=== PATIENT | female | born 1960 | race African-American/Black ===

== ENCOUNTER 2016-05-13 17:37 | Emergency (ER) ==
[2016-05-13 17:53] VITALS: BP 166/94
[2016-05-13] MEDS ORDERED: FLEXERIL PO ONE (18:31)
[2016-05-13] MEDS ORDERED: NORCO-5 PO ONE (18:31)
--- NOTE | 2016-05-13 18:35 | PROVIDER DOCUMENTATION ---
HPI-Musculoskeletal Pain/Inj - GENERAL Chief Complaint: Extremity Pain Stated Complaint: EXTREMITY PAIN Time Seen by Provider: 05/13/16 18:09 Source: patient - HX OF PRESENT ILLNESS-MUSKULOSKELTAL Nature of Presenting Problem: 55 y/o AAf c/o right sciatic never pain. This is a chornic problem she has been worked up for in the past.. Reports right lower back pain that radiates down the leg, worse with movement. Denies new injuries. Pain is aching, sometimes throbbing, worse with movement. Review of Systems - Adult - REVIEW OF SYSTEMS - ADULT Constitutional: reports: no symptoms reported. denies: chills, fever, fatique Eyes: reports: no symptoms reported. denies: blurred vision, double vision, eye pain Ears, Nose, Mouth & Throat: reports: no symptoms reported. denies: ear pain, nose pain, throat pain Cardiovascular: reports: no symptoms reported. denies: chest pain, palpitations Respiratory: reports: no symptoms reported. denies: cough, shortness of breath Gastrointestinal: reports: no symptoms reported Genitourinary: reports: no symptoms reported Musculoskeletal: reports: see HPI, back pain, muscle aches. denies: bone pain, joint pain, neck pain Integumentary: reports: no symptoms reported. denies: rash Neurological: reports: no symptoms reported. denies: headache/migraines Psychiatric: reports: no symptoms reported Endocrine: reports: no symptoms reported Hematologic/Lymphatic: reports: no symptoms reported Allergic/Immunologic: reports: no symptoms reported All Other Systems: Reviewed and Negative Past History - Adult - PAST MEDICAL HISTORY-ADULT Review of Records: reports: Old Records Reviewed, Nursing Assessment Review, Medications Reviewed, Social history reviewed & non-contributory. Major Childhood Illnesses: reports: denies history Cardiovascular: reports: HTN, hyperlipidemia Respiratory: reports: asthma Gastrointestinal: reports: denies history Obstetrical/Gynecological: reports: denies history Genitourinary: reports: denies history Musculoskeletal: reports: chronic pain Neurological: reports: denies history Psychiatric: reports: anxiety, depression Endocrine/Immune: reports: Diabetes Other Conditions: reports: denies history - PRIOR SURGERIES/PROCEDURES Surgical/Procedure History: reports: other (hemrrhoidectomy) - IMMUNIZATION STATUS Childhood Immunizations: See Nurse Assessment Flu Vaccine: See Nurse Assessment - FAMILY HISTORY Family History: reviewed, not pertinent - SOCIAL HISTORY Smoking: denies Substance Use: none/never Alcohol Use Frequency: never Physical Exam-Injury Related - Physical Exam-Injury Related Initial Vital Signs Reviewed: Yes General Appearance: appears well, alert, no apparent distress Eyes: PERRL/EOMI, pink conjunctivae Head, Ears, Nose, Mouth & Throat: normocephalic/atraumatic, moist mucous membranes Neck: non-tender, full range of motion, supple, normal inspection Respiratory: chest non-tender, lungs clear, normal breath sounds, no pleuratic chest pain, no respiratory distress, no accessory muscle use Cardiovascular: normal peripheral pulses, regular rate, rhythm Peripheral Pulses: dorsalis-pedis (R): 2+, dorsalis-pedis (L): 2+ Back Exam: normal inspection. negative: vertebral tenderness Extremity: normal range of motion, non-tender, normal gait, normal inspection Integumentary: normal color, warm/dry, blanching Neurologic: grossly normal, no motor/sensory deficits Psych/Mental Status: normal mood/affect, normal thought content, normal thought process, oriented x 3 - Glascow Coma Score Best Eye Response (Lucoi): (4) open spontaneously Best Verbal Response (Lucio): (5) oriented Best Motor Response (Brightwood): (6) obeys commands Progress - PLAN OF CARE/RESULTS Progress/Plan/Lab Results: Orders Category Date Time Status Cyclobenzaprine [Flexeril] Med 05/13/16 18:31 Discontinued 10 mg PO NOW ONE Hydrocodone/APAP 5 mg/325 mg [Meacham-5] Med 05/13/16 18:31 Discontinued 1 each PO NOW ONE Vital Signs Temp Pulse Resp BP Pulse Ox 05/13/16 17:47 98 F 104 H 18 166/94 98 ibuprofen [From Advil] Allergy (Intermediate, Verified 04/24/16 19:57) SHORTNESS OF BREATH naproxen sodium * [From Aleve] Allergy (Intermediate, Verified 04/24/16 19:57) SHORTNESS OF BREATH morphine Allergy (Mild, Verified 04/24/16 19:57) "THE ULTIMATE DOOM" PRAVAstatin [Pravachol] 10 mg PO QHS 05/03/13 Ipratropium/Albuterol Sulfate [Iprat-Albut 0.5-3(2.5) mg/3 ml] 3 ml IH Q4H PRN PRN 02/11/14 Metformin HCl 1,000 mg PO BID 03/28/14 Montelukast Sodium [Singulair] 10 mg PO DAILY 03/28/14 Omeprazole [Prilosec] 40 mg PO DAILY 03/28/14 Triamterene/Hctz [Maxzide-25] 1 tab PO DAILY 12/22/14 Diltiazem HCl [Diltiazem ER] 360 mg PO DAILY 01/19/15 Fluticasone/Salmeterol [Advair 500-50 Diskus] 1 inh INH BID 03/09/15 Theophylline Anhydrous [Theophylline] 400 mg PO DAILY 04/03/15 Cetirizine HCl [Zyrtec] 1 tab PO DAILY 02/06/16 Fluticasone Propionate [Flonase Allergy Relief] 1 spray INH BID 02/06/16 Glimepiride [Amaryl] 4 mg PO DAILY 02/06/16 Insulin Aspart [Novolog Flexpen] 02/06/16 Lorazepam [Ativan] 1 mg PO BID #0 tablet 02/10/16 Tiotropium [place] [Spiriva Respimat] 1 inh INH DAILY #0 02/10/16 Multivit-Minerals/Folic/Ginkgo [One Daily For Women 50+ Adv Tb] 1 tab PO DAILY 04/24/16 Albuterol Sulfate [Ventolin Hfa] 90 mcg IH Q4H PRN PRN #0 04/29/16 Budesonide [Pulmicort] 0.5 mg INH RTBID #0 neb 04/29/16 Hydrocodone/Acetaminophen [Meacham 10-325 Tablet] 1 tab PO TID PRN PRN #0 Losartan [Cozaar] 100 mg PO DAILY #30 tablet 04/29/16 Methylprednisolone [Medrol Dosepak] 4 mg PO DIRECTED #1 package 04/29/16 Acetaminophen with Codeine [Tylenol with Codeine #3] 1 each PO Q4H PRN PRN #14 tablet 05/13/16 Dr. Jacinto to bedside. Agrees with treatment, disposition and plan. Departure - Departure Time of Disposition Order: 18:32 DIAGNOSIS: Right sciatic nerve pain Disposition: HOME 01 Certified Medical Emergency: Emergent Condition: Stable Additional Instructions: Follow up with Dr. Hadley, orthopedic ED Follow Up Instructions: You have been treated by a care provider in the Emergency Department. These instructions are being provided to you so you can have an understanding of how to care for yourself upon discharge. Upon discharge from the Emergency Department, you are responsible for making arrangements for follow-up care by a physician of your choice. Take all prescribed medications as directed. Return to the Emergency Department immediately for any new or worsening symptoms. You may call the Physician Referral phone number at [phone] to obtain a list of Physicians who are taking new patients. Prescriptions: Acetaminophen with Codeine [Tylenol with Codeine #3] 1 each PO Q4H PRN PRN #14 tablet PRN Reason: Pain Attestation - Physician/ ELDA Attestation Patient care was provided by Advanced Practice Provider:: Yes Advanced Practice Provider:: Evonne Montejo Advanced Practice Provider documentation review:: The Mid-level provider documentation, treatment plan and medical decision making was reviewed by the physician who agrees with all treatment and medical decision making by the MLP. The physician spent face to face time with patient:: Yes
== END 2016-05-13 19:05 | disposition home or self-care (01) ==
LOC: P.ED 17:37
DX: M54.31 Sciatica, right side (principal); M54.5 Low back pain; M79.604 Pain in right leg; M79.1 Myalgia; G89.29 Other chronic pain; I10 Essential (primary) hypertension; E78.5 Hyperlipidemia, unspecified; E11.9 Type 2 diabetes mellitus without complications
CPT/HCPCS: 99282

== ENCOUNTER 2016-08-20 06:40 | Inpatient (IN) ==
--- NOTE | 2016-08-20 06:50 | EKG Report ---
Test Performed on : 08/20/2016 06:45:42 AM Test Reason : SOB Blood Pressure : / mmHG Vent. Rate : 153 BPM Atrial Rate : 153 BPM P-R Int : 130 ms QRS Dur : 066 ms QT Int : 316 ms P-R-T Axes : 078 086 056 degrees QTc Int : 504 ms Sinus tachycardia. Otherwise normal ECG When compared with ECG of 24-APR-2016 18:47, Non-specific change in ST segment in Inferior leads Unconfirmed Result
[2016-08-20 06:51] LABS: BE -1.3 mmoll (-3.0-3.0); BLOOD TYPE ARTERIAL; DRAW SITE R RADIAL; METHB 1.3 % (0.0-1.5); O2(CT) 22.2 mL/dL (15.0-23.0); PCO2(98.6) 40 mmHg (35-45); PO2(98.6) 78 mmHg (60-100); SAMPLE BLOOD; SAO2 96.5 % (95.0-100.0); THB 16.9 g/dL (11.5-17.4); pH(98.6) 7.38 (7.35-7.45)
[2016-08-20 06:52] LABS: MANUAL DIFF NEEDED? NO
[2016-08-20 06:54] LABS: ALLEN TEST YES; MODALITY CANNULA
[2016-08-20 07:05] LABS: EOS# 0.23 X1000 (0.0-0.7); EOS% 3.2 % (0.0-10.0); HEMOGLOBIN 16.7 g/dL (12.0-16.0); IMM GRAN# 0.05 X1000 (0.0-0.04); IMM GRAN% 0.7 % (0.0-0.5); LYMPH# 2.59 X1000 (1.2-3.4); LYMPH% 36.3 % (20.5-51.1); MCH 31.2 PG (27-31); MCHC 34.8 g/dL (33-37); MCV 89.6 FL (81-99); MONO# 0.68 X1000 (0.11-0.59); MONO% 9.5 % (1.7-9.3); MPV 9.8 FL (7.4-10.4); NEUT% 49.3 % (42.2-75.2); PLT 350 X1000 (130-400); RBC 5.36 XMIL (4.2-5.4)
[2016-08-20 07:17] LABS: AGAP 23; ALBUMIN 4.8 g/dL (3.5-5.0); ALKALINE PHOSPHATASE 74 U/L (32-104); BUN 5 mg/dL (8-22); CALCIUM 9.9 mg/dL (8.8-10.2); CHLORIDE 90 mmol/L (98-107); CK PROFILE 203 U/L (24-173); COSMO 273; GOT 23 U/L (10-30); GPT 22 U/L (10-36); MAGNESIUM 1.5 mg/dL (1.5-2.7); POTASSIUM 3.7 mmol/L (3.5-5.1); SODIUM 133 mmol/L (136-145); TCO2 20 mmol/L (25-35); TOTAL PROTEIN 7.8 g/dL (6.3-8.3)
[2016-08-20 08:00] LABS: CK INDEX 1.2 (0.0-2.5); CK-MB 2.42 ng/mL (0.0-5.0)
[2016-08-20] MEDS ORDERED: SOLU-MEDROL IV ONE (09:35)
[2016-08-20] MEDS ORDERED: MAGNESIUM SULFATE 2 GM/S.W.I. 2 GM/50 ML IVPB IV ONE (09:43)
[2016-08-20] MEDS ORDERED: NS 1,000 ML IV ONE ×2 (09:43→13:19)
--- NOTE | 2016-08-20 10:04 | PROVIDER DOCUMENTATION ---
This chart was entered by Chasity Ho Scribe, acting as scribe for Jorje Baeza MD. HPI-Respiratory General - General Chief Complaint: Shortness of Breath Stated Complaint: DYSPNEA, SVT EN ROUTE Time Seen by Provider: 08/20/16 06:50 Source: patient, family Allergies/Adverse Reactions: Patient Allergies Allergy/AdvReac Type Severity Reaction Status Date / Time ibuprofen [From Advil] Allergy Intermediate SHORTNESS Verified 08/20/16 06:49 OF BREATH naproxen sodium * Allergy Intermediate SHORTNESS Verified 08/20/16 06:49 [From Aleve] OF BREATH morphine Allergy Mild "THE Verified 08/20/16 06:49 ULTIMATE DOOM" Home Medications: Home Medication List Medication Instructions Recorded Confirmed Last Taken Type Albuterol Sulfate [Albuterol 08/20/16 08/20/16 History Sulfate] Amlodipine Besylate [Amlodipine 08/20/16 1 Day Ago History Besylate] Hydrocodone/Acetaminophen 08/20/16 1 Day Ago History [Hydrocodon-Acetaminophn 10-325] Ipratropium [place] 08/20/16 08/20/16 History Losartan Potassium [Losartan 08/20/16 1 Day Ago History Potassium] Montelukast Sodium [Montelukast 08/20/16 1 Day Ago History Sodium] Omeprazole [Omeprazole] 08/20/16 1 Day Ago History Pregabalin [Lyrica] 08/20/16 08/20/16 History Theophylline Anhydrous 08/20/16 1 Day Ago History [Theophylline] Triamterene/Hydrochlorothiazid 08/20/16 1 Day Ago History [Triamterene-Hctz 37.5-25 mg Cp] - History of Present Illness-Resp Nature of Presenting Problem: 55 yo F presents to the ER with complaint of worsening SOB x2 days and R leg pain x6 months. Pt has hx of asthma, states she is not taking any steroids. R leg pain starts in low back and radiates down R leg, states she has been diagnosed with sciatica and has had an MRI and 2 injections. Onset/Duration: reports: 3 days ago Timing: reports: still present Exposure: reports: unknown cause Cough Quality/Degree: reports: moderate Current Respiratory Medication Therapy: Initiated albuterol/atrovent inhale, Initiated A/A nebulizer Associated Symptoms: reports: cough, shortness of breath, short of breath. denies: fever/chills, flu-like symptoms Review of Systems - Adult - REVIEW OF SYSTEMS - ADULT Constitutional: denies: chills, fever Eyes: reports: no symptoms reported Ears, Nose, Mouth & Throat: reports: no symptoms reported Cardiovascular: denies: chest pain, palpitations Respiratory: reports: cough, shortness of breath, wheezing Gastrointestinal: denies: diarrhea, nausea, vomiting Genitourinary: reports: no symptoms reported Musculoskeletal: reports: no symptoms reported Integumentary: reports: no symptoms reported Neurological: reports: no symptoms reported Psychiatric: reports: no symptoms reported Endocrine: reports: no symptoms reported Hematologic/Lymphatic: reports: no symptoms reported Allergic/Immunologic: reports: no symptoms reported All Other Systems: Reviewed and Negative Past History - Adult - PAST MEDICAL HISTORY-ADULT Review of Records: reports: Nursing Assessment Review, Medications Reviewed Cardiovascular: reports: HTN, hyperlipidemia Respiratory: reports: asthma Musculoskeletal: reports: arthritis, chronic pain Psychiatric: reports: anxiety, depression Endocrine/Immune: reports: Diabetes - PRIOR SURGERIES/PROCEDURES Surgical/Procedure History: reports: other (hemrrhoidectomy) - IMMUNIZATION STATUS Childhood Immunizations: See Nurse Assessment Flu Vaccine: See Nurse Assessment Physical Exam-General - PHYSICAL EXAM-ADULT Initial Vital Signs Reviewed: Yes - CONSTITUTIONAL General Appearance: alert, no apparent distress - EYES Eyes: PERRL/EOMI, pink conjunctivae - HEAD, EARS, NOSE, MOUTH & THROAT HENMT: normocephalic/atraumatic, normal ENT inspection - NECK Neck: supple, normal inspection - RESPIRATORY Respiratory: no respiratory distress, no accessory muscle use, wheezing - CARDIOVASCULAR Cardiovascular: normal peripheral pulses, regular rate, rhythm - MUSCULOSKELETAL Back Exam: no CVA tenderness, no vertebral tenderness Extremity: normal gait, normal inspection - SKIN Integumentary: normal color, warm/dry - NEUROLOGIC Neurologic: grossly normal, no motor/sensory deficits - PSYCHIATRIC Psych/Mental Status: normal mood/affect, normal thought content, normal thought process, oriented x 3 Progress - PLAN OF CARE/RESULTS Progress/Plan/Lab Results: Vital Signs - 8 hr 08/20/16 06:40 08/20/16 06:58 08/20/16 07:34 Temperature 99.5 F Pulse Rate 147 H 134 H 137 H Respiratory Rate 22 12 18 Blood Pressure 155/116 130/104 143/109 O2 Sat by Pulse Oximetry 96 96 97 08/20/16 09:24 Temperature Pulse Rate 132 H Respiratory Rate 26 H Blood Pressure O2 Sat by Pulse Oximetry 96 Laboratory Results - last 24 hr 08/20/16 08/20/16 08/20/16 06:30 06:47 06:47 WBC RBC Hgb Hct MCV MCH MCHC RDW Std Deviation Plt Count MPV Immature Gran % (Auto) Neut % (Auto) Lymph % (Auto) Branch % (Auto) Eos % (Auto) Baso % (Auto) Immature Gran # (Auto) Neut # (Auto) Lymph # (Auto) Branch # (Auto) Eos # (Auto) Baso # (Auto) D-Dimer Specimen Type ARTERIAL Sample Site R RADIAL pH 7.38 pCO2 40 pO2 78 HCO3 23.8 Base Excess -1.3 Oxyhemoglobin 93.4 L ABG O2 Sat (Calculated) 22.2 ABG O2 Saturation 96.5 ABG Carboxyhemoglobin 2.00 ABG Methemoglobin 1.3 Preet Test YES A-a O2 Difference 72.0 Total Hemoglobin 16.9 Lactate 5.80 H* Liter Flow 2.0 Blood Gas Modality CANNULA FiO2 % 28.0 Sodium 133 L Potassium 3.7 Chloride 90 L Carbon Dioxide 20 L Anion Gap 23 BUN 5 L Creatinine 0.8 Estimated GFR/1.73 m2 > 60 BUN/Creatinine Ratio 6 Glucose 266 H Calculated Osmolality 273 Calcium 9.9 Magnesium 1.5 Total Bilirubin 0.30 AST 23 ALT 22 Alkaline Phosphatase 74 Creatine Kinase 203 H Creatine Kinase Index 1.2 CK-MB (CK-2) 2.42 Troponin T < 0.010 Qiq-K-Rjmldwunihx Pept Total Protein 7.8 Albumin 4.8 Globulin 3.0 Albumin/Globulin Ratio 2.0 Plasma Lactate 08/20/16 08/20/16 08/20/16 06:47 06:47 06:47 WBC 7.13 RBC 5.36 Hgb 16.7 H Hct 48.0 H MCV 89.6 MCH 31.2 H MCHC 34.8 RDW Std Deviation 13.0 Plt Count 350 MPV 9.8 Immature Gran % (Auto) 0.7 H Neut % (Auto) 49.3 Lymph % (Auto) 36.3 Branch % (Auto) 9.5 H Eos % (Auto) 3.2 Baso % (Auto) 1.0 H Immature Gran # (Auto) 0.05 H Neut # (Auto) 3.51 Lymph # (Auto) 2.59 Branch # (Auto) 0.68 H Eos # (Auto) 0.23 Baso # (Auto) 0.07 D-Dimer 0.26 Specimen Type Sample Site pH pCO2 pO2 HCO3 Base Excess Oxyhemoglobin ABG O2 Sat (Calculated) ABG O2 Saturation ABG Carboxyhemoglobin ABG Methemoglobin Preet Test A-a O2 Difference Total Hemoglobin Lactate Liter Flow Blood Gas Modality FiO2 % Sodium Potassium Chloride Carbon Dioxide Anion Gap BUN Creatinine Estimated GFR/1.73 m2 BUN/Creatinine Ratio Glucose Calculated Osmolality Calcium Magnesium Total Bilirubin AST ALT Alkaline Phosphatase Creatine Kinase Creatine Kinase Index CK-MB (CK-2) Troponin T Yme-N-Icavrugvlqf Pept 6 Total Protein Albumin Globulin Albumin/Globulin Ratio Plasma Lactate 08/20/16 08:10 WBC RBC Hgb Hct MCV MCH MCHC RDW Std Deviation Plt Count MPV Immature Gran % (Auto) Neut % (Auto) Lymph % (Auto) Branch % (Auto) Eos % (Auto) Baso % (Auto) Immature Gran # (Auto) Neut # (Auto) Lymph # (Auto) Branch # (Auto) Eos # (Auto) Baso # (Auto) D-Dimer Specimen Type Sample Site pH pCO2 pO2 HCO3 Base Excess Oxyhemoglobin ABG O2 Sat (Calculated) ABG O2 Saturation ABG Carboxyhemoglobin ABG Methemoglobin Preet Test A-a O2 Difference Total Hemoglobin Lactate Liter Flow Blood Gas Modality FiO2 % Sodium Potassium Chloride Carbon Dioxide Anion Gap BUN Creatinine Estimated GFR/1.73 m2 BUN/Creatinine Ratio Glucose Calculated Osmolality Calcium Magnesium Total Bilirubin AST ALT Alkaline Phosphatase Creatine Kinase Creatine Kinase Index CK-MB (CK-2) Troponin T Owj-S-Bkhioywngbj Pept Total Protein Albumin Globulin Albumin/Globulin Ratio Plasma Lactate 4.3 H Orders Category Date Time Status Admit - [facility] Routine AdmDCTranf 08/20/16 09:43 Ordered Activity - Bed Rest with BRP ORDERED Care 08/20/16 09:43 Active Cardiac Monitoring DIRECTED Care 08/20/16 06:41 Active Oxygen Therapy- ED Nursing DIRECTED Care 08/20/16 06:41 Active Telemetry Placement ORDERED Care 08/20/16 09:44 Active Vital Signs Order Q4HR Care 08/20/16 09:43 Active Diabetic Diet Diet 08/20/16 09:44 Active CHEST-PORTABLE [RAD] Stat Exams 08/20/16 06:41 Taken ABG [RESP] Routine Lab 08/20/16 06:30 Completed CBC WITH DIFF [HEME] Stat Lab 08/20/16 06:47 Completed CK PROFILE [SP CHEM] Stat Lab 08/20/16 06:47 Completed COMPREHENSIVE METABOLIC PANEL [CHEM] Stat Lab 08/20/16 06:[address] D-DIMER PL [COAG] Stat Lab 08/20/16 06:47 Completed LACTATE, PLASMA [CHEM] Stat Lab 08/20/16 08:10 Completed MAGNESIUM [CHEM] Stat Lab 08/20/16 06:47 Completed PRO B-NATRIURETIC PEPTIDE Stat Lab 08/20/16 06:47 Completed TROPONIN T Stat Lab 08/20/16 06:47 Completed 0.9% Sodium Chloride Inj [Ns] 1,000 ml Med 08/20/16 09:43 Active IV 150 mls/hr Albuterol 2.5MG/Ipratrop 0.5MG [Duoneb (A & A)] Med 08/20/16 11:30 Active 3 ml INH RTQ4H Magnesium Sulfate 2 gm/S.w.i. [Magnesium Sulfate 2 gm/S Med 08/20/16 09:43 Active .w.i] 2 gm in 50 ml IV NOW Methylprednisolone Sod Succ [Solu-Medrol] Med 08/20/16 09:35 Discontinued 125 mg IV NOW ONE Methylprednisolone Sod Succ [Solu-Medrol] Med 08/20/16 15:00 Active 125 mg IV Q6H Aerosol Treatments Routine Oth 08/20/16 09:46 Active Aerosol Treatments Stat Oth 08/20/16 09:46 Active Oxygen Device Routine Oth 08/20/16 09:44 Active Pulse Oximetry Stat Oth 08/20/16 06:41 Active Telemetry [OM.EQ] Routine Oth 08/20/16 09:43 Active EKG [EKG] Stat Ther 08/20/16 06:41 Draft Result Diagrams: 08/20/16 06:47 08/20/16 06:47 - EKG 1 Time of EKG reading by physician:: 06:45 EKG Read and Signed by:: Jorje Baeza EKG Interpretation (*Must complete 3 of following elements*): Abnormal Rate: 153 Rhythm: sinus tach Hazen: normal QRS: normal VT Interval: normal ST Wave: normal - XRAY 1 XRAY Study: Chest Impression: Normal (negative, no changes, per Dr. Baeza) - CONSULTS/PCP/HOSPITALIST Notification #1 *Consult/PCP/Hospitalist*: Dr. Douglas Time Discussed: 09:40 Consult Disposition: Admit Departure - Departure Date of Disposition Decision: 08/20/16 Time of Disposition Decision: 10:03 DIAGNOSIS: Asthma attack Back pain Qualifiers: Back pain location: low back pain Chronicity: unspecified Back pain laterality : bilateral Sciatica presence: with sciatica Sciatica laterality: sciatica of right side Qualified Code(s): M54.41 - Lumbago with sciatica, right side Disposition: ADMITTED INPATIENT 09 Certified Medical Emergency: Emergent Condition: Stable Referrals and Follow-Ups: Araseli Cordoba MD [Primary Care Provider] - - Critical Care Note This patient required my direct & personal management of CC.: No This chart was documented by the indicated scribe, (Chasity Ho, Aldo) and accurately reflects the services I performed and decisions made by me, Jorje Baeza MD, as attested by the provider's signature.
[2016-08-20] MEDS ORDERED: DUONEB (A & A) INH ONE (10:23)
[2016-08-20] MEDS: DUONEB (A & A) INH SCH ×4 (10:33→22:56)
[2016-08-20] MEDS ORDERED: TORADOL IV ONE (11:01)
[2016-08-20] MEDS ORDERED: TORADOL IV PRN (11:01)
[2016-08-20] MEDS: DILAUDID IV PRN ×4 (11:16→20:56)
--- NOTE | 2016-08-20 11:19 | Diag Imaging Result Doc PS360 ---
EXAM: CHEST-PORTABLE INDICATION: DYSPNEA TECHNIQUE: One view COMPARISON: 04/24/2016 FINDINGS: The lungs are grossly clear. There is no discrete pleural fluid collection or pneumothorax. The cardiomediastinal silhouette and central vasculature are grossly unremarkable. IMPRESSION: No evidence of acute pathology by plain radiograph. Electronically signed by Shahid Rivera 08/20/2016 11:16 AM
[2016-08-20] MEDS ORDERED: OFIRMEV 1000 MG/ISOTONIC SOLN 1,000 MG/100 ML BOTTLE IV PRN (12:55)
[2016-08-20] MEDS ORDERED: NORCO-10 PO PRN (12:57)
[2016-08-20] MEDS ORDERED: DUONEB (A & A) INH PRN (13:00)
[2016-08-20] MEDS ORDERED: OFIRMEV 1000 MG/ISOTONIC SOLN 1,000 MG/100 ML BOTTLE IV ONE (13:50)
[2016-08-20] MEDS ORDERED: ALBUTEROL NEB INH ONE (13:51)
[2016-08-20] MEDS: LYRICA PO SCH ×2 (14:01→21:19)
[2016-08-20] MEDS: ZITHROMAX 500 MG/NS 500 MG/250 ML IVPB IV SCH (14:02)
[2016-08-20] MEDS: LIDODERM TOP SCH (14:06)
[2016-08-20] MEDS: NORVASC PO SCH (14:07)
[2016-08-20] MEDS: SINGULAIR PO SCH (14:07)
[2016-08-20] MEDS: NORCO-10 PO SCH ×2 (14:07→21:19)
[2016-08-20] MEDS: COZAAR PO SCH (14:07)
--- NOTE | 2016-08-20 14:19 | HISTORY AND PHYSICAL ---
PRIMARY CARE PHYSICIAN: Dr. Araseli Cordoba. CHIEF COMPLAINT: Shortness of breath. HISTORY OF PRESENT ILLNESS: This is a 55-year-old female with a history of asthma who presented to the emergency room complaining of increasing shortness of breath over the last 48 hours. She states that she has a history of sciatica with right leg pain and that this has increased in severity over the last few weeks, especially the last 4-5 days. She feels that the pain makes her anxious and therefore stimulates asthma exacerbations. She had been taking her albuterol nebulizations hourly at home and when symptoms did not subside, she presented to the emergency room. She did have an O2 saturation of 96% on 2L nasal cannula on arrival, and she reportedly had SVT in the ambulance on arrival. We are not sure of the rate. The patient states that it subsided spontaneously. Her chest x-ray revealed no evidence of acute pathology. Lungs are grossly clear, per Radiology read. She was given DuoNeb with magnesium supplementation and 125 of Solu-Medrol, and admitted for further evaluation treatment. PAST MEDICAL HISTORY: Asthma, diabetes mellitus, hypertension, hyperlipidemia, anxiety, sciatica with right lower extremity pain. PAST SURGICAL HISTORY: Hemorrhoidectomy. SOCIAL HISTORY: She quit smoking in 2007. She denies alcohol or illicit drug use. She does live alone, but has family close by who are active in her care. ALLERGIES: Morphine and any non-steroidal anti-inflammatory drug, which cause asthma attack. LABORATORIES: WBC is 7.13 with hemoglobin 16.7, hematocrit 48, and platelets of 350,000. D-dimer is 0.26. Sodium is 133, potassium 3.7, BUN 5, creatinine 0.8, with a glucose of 266. Her plasma lactate is 4.3. IMAGING: Chest x-ray is clear. REVIEW OF SYSTEMS: A 14-point review of systems is discussed with the patient, with pertinent positives stated in HPI. She denied chest pain, palpitations, PND, orthopnea, fever, chills, productive cough, night sweats, nausea, vomiting, diarrhea, constipation, black or bloody vomitus, black or bloody stools, hematuria, dysuria, frequency, or urgency. PHYSICAL EXAMINATION: GENERAL: This is a 55-year-old obese female, who is lying in the bed in no distress at present. VITAL SIGNS: Blood pressure is 128/81 with a heart rate of 116. Respirations are 18. Temperature is 98.2 degrees with O2 saturations 98% on 2L nasal cannula. CARDIOVASCULAR: She is tachycardic with a regular rate and rhythm. S1 and S2 appreciated. PULMONARY: She is wheezing throughout, with no increased work of breathing noted. GASTROINTESTINAL: Abdomen is soft, nontender, nondistended. Bowel sounds in all 4 quadrants. BACK: No CVAT. No spine tenderness. GENITOURINARY: Deferred. EXTREMITIES: No clubbing, cyanosis, or edema. Calves are nontender and pulses are palpable x4. NEUROLOGIC: She is alert and oriented x3, with cranial nerves 2-12 grossly intact. ASSESSMENT AND PLAN: 1. Acute asthma exacerbation. 2. History of chronic obstructive pulmonary disease. 3. Supraventricular tachycardia. 4. Sciatica with right lower extremity pain. She is status post 2 injections. 5. Diabetes mellitus. 6. Hypertension. 7. Deep vein thrombosis prophylaxis. 8. Gastrointestinal prophylaxis. She will be admitted to the hospital. She will receive supplemental oxygen. We will place her on telemetry. We will give DuoNeb q.4 hours and q.2 hours p.r.n., and steroids q.6 hours, which will also hopefully help her sciatica. We will identify her home medications and continue as appropriate. Pattern blood glucose with sliding scale insulin. As her lactate was elevated as well as tachycardic with elevated respirations, we will go ahead and get blood cultures and give IV hydration per sepsis protocol. For antibiotic coverage, we will use azithromycin. For DVT prophylaxis, we will use Lovenox. For GI prophylaxis, we will use Prilosec. Further treatment pending hospital course. Dictated by MERI Ma for Chay Douglas MD cc: MERI Ma MD pt examined, agree with above APENOT MTDD
[2016-08-20] MEDS: SOLU-MEDROL IV SCH ×2 (17:20→21:19)
[2016-08-20] MEDS: HUMALOG DOSE (PARKWAY) SUBQ SCH ×2 (17:23→21:19)
[2016-08-21] MEDS: DILAUDID IV PRN ×6 (00:22→18:45)
[2016-08-21] MEDS: DUONEB (A & A) INH SCH ×6 (04:11→23:00)
[2016-08-21] MEDS: SOLU-MEDROL IV SCH ×4 (04:46→20:07)
[2016-08-21] MEDS: NORCO-10 PO SCH ×3 (04:46→21:18)
[2016-08-21] MEDS: LYRICA PO SCH ×3 (04:46→20:07)
[2016-08-21 05:52] LABS: HEMATOCRIT 42.4 % (37.0-47.0); HEMOGLOBIN 14.3 g/dL (12.0-16.0); MCH 30.6 PG (27-31); MCHC 33.7 g/dL (33-37); MCV 90.6 FL (81-99); MPV 9.8 FL (7.4-10.4); RBC 4.68 XMIL (4.2-5.4)
[2016-08-21 05:58] LABS: HEMOGLOBIN A1C 8.9 % (4.8-6.0)
[2016-08-21 06:22] LABS: AGAP 16; ALBUMIN 4.5 g/dL (3.5-5.0); ALKALINE PHOSPHATASE 65 U/L (32-104); BUN 10 mg/dL (8-22); CALCIUM 9.2 mg/dL (8.8-10.2); CHLORIDE 91 mmol/L (98-107); COSMO 274; GOT 16 U/L (10-30); GPT 19 U/L (10-36); MAGNESIUM 2.1 mg/dL (1.5-2.7); POTASSIUM 3.8 mmol/L (3.5-5.1); SODIUM 130 mmol/L (136-145); TCO2 23 mmol/L (25-35); TOTAL PROTEIN 7.3 g/dL (6.3-8.3)
[2016-08-21] MEDS: HUMALOG DOSE (PARKWAY) SUBQ SCH ×4 (06:40→20:08)
[2016-08-21] MEDS: PRILOSEC PO SCH (06:41)
[2016-08-21] MEDS: COZAAR PO SCH (08:46)
[2016-08-21] MEDS: NORVASC PO SCH (08:46)
[2016-08-21] MEDS: SINGULAIR PO SCH (08:46)
[2016-08-21] MEDS: LIDODERM TOP SCH (08:47)
[2016-08-21] MEDS: [UNRECOGNIZED DRUG - OTHER] PO SCH (08:47)
[2016-08-21] MEDS: LOVENOX SUBQ SCH (08:47)
--- NOTE | 2016-08-21 11:14 | PROGRESS NOTE ---
DATE: 08/21/2016 SUBJECTIVE: Today Ms. Fonseca refers to be doing a little better. Continues to have cough and wheezing. OBJECTIVE: Vital signs: Blood pressure is 144/82, pulse of 111, respirations 20, temperature 97.8 degrees. General: Ms. Fonseca is a 55-year-old female. She is in bed. Did not seem to be in unremarkable distress. HEENT: Mucosa is pink and moist. Anicteric. Acyanotic. Neck: Supple. Chest: Air entry is bilaterally reduced. There is prolonged expiratory phase of respiration. There is both end inspiration and expiration in almost entire expiration phase. Cardiovascular: Regular rate and rhythm. Abdomen: Soft, nontender. Extremities: No pedal edema. 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 There is no focal neurological deficit. There is no sensation deficit. Motor and reflexes are intact. Musculoskeletal: The right lower extremity is positive with Lasegue maneuver consistent with some sciatica. Left lower extremity is mildly tender mobilizing the left knee. IMAGING STUDIES: A chest x-ray which was done yesterday on presentation shows no acute pathology by plain x-ray. LABORATORY DATA: CBC is reviewed, completely normal. Chemistry reviewed. Sodium is 130, potassium is 3.8, chloride is 91. Glucose was 359. It is now down to 251. A1c is 8.9. CURRENT MEDICATIONS: 1. [place]. 2. Albuterol nebulizers. 3. Amlodipine 5 mg daily. 4. Azithromycin. 5. Lovenox. 6. Methylprednisolone. 7. Lyrica. 8. Theophylline. ASSESSMENT: 1. Acute bronchospasm secondary to asthma exacerbation. 2. Right lumbar pain with sciatica. 3. Diabetes mellitus. 4. Mild obesity with body mass index of 35. PLAN: Ms. Fonseca continues to have bronchospasm. Will continue with the nebulization and the steroid. We will also order incentive spirometer to help opening the lungs. Will add guaifenesin for the cough. Patient does have sciatica which she normally follows up with spinal surgeons in [place]. Will defer that to when she gets discharged. In terms of the patient's diabetes mellitus, this seems to be uncontrolled. Had a presenting A1c of 8.9 and now that she is on steroids, it looks like it is just making it a little worse. She is currently on sliding scale. We will put her on long-acting glargine. Patient is also on pregabalin for her sciatic. cc: Steve Cervantes MD
[2016-08-21] MEDS: ZITHROMAX 500 MG/NS 500 MG/250 ML IVPB IV SCH (13:58)
[2016-08-21] MEDS: ROBAXIN PO SCH (20:07)
[2016-08-21] MEDS: MUCINEX PO SCH (20:08)
[2016-08-22] MEDS: SOLU-MEDROL IV SCH ×3 (02:07→16:19)
[2016-08-22] MEDS: DUONEB (A & A) INH SCH ×6 (03:04→23:09)
[2016-08-22] MEDS ORDERED: SOLU-MEDROL IV SCH (08:00)
[2016-08-22 08:05] LABS: AGAP 16; BUN 11 mg/dL (8-22); CALCIUM 8.5 mg/dL (8.8-10.2); CHLORIDE 96 mmol/L (98-107); COSMO 287; POTASSIUM 4.1 mmol/L (3.5-5.1); SODIUM 135 mmol/L (136-145); TCO2 23 mmol/L (25-35)
--- NOTE | 2016-08-22 08:58 | PROGRESS NOTE ---
DATE: 08/22/2016 SUBJECTIVE: The patient notes that she is feeling a little bit better. She is still having problems with sciatica. Still having some difficulty breathing but notes that her breathing is much improved. PHYSICAL EXAMINATION: Vital Signs: Temperature 97, pulse 99, respiratory rate 18, BP 157/94, saturation 94% on 2 L to 99% on 2 L. General: The patient is an awake, alert, oriented, obese female who is currently in mild respiratory distress. She is currently pleasant to talk with. Speech is regular. Memory is intact. HEENT: Normocephalic, atraumatic. Neck: Supple. CV: Regular rate. Chest: Relatively clear with faint wheezing. Abdomen: Soft. Neurologic: No focal changes. LABS: Glucose 418. ASSESSMENT: 1. Asthma with an acute exacerbation. We will decrease her Solu-Medrol. Current is on 125 every 6. We will decrease to 80 every 8. 2. Hyperglycemia. Continue sliding scale insulin secondary to her high Solu-Medrol dose. 3. Hypertension. PLAN: We will decrease Solu-Medrol. We will add Teskay Walteres. We will continue to follow. cc: Jabari Viera MD
[2016-08-22] MEDS ORDERED: PRAVACHOL PO SCH (09:00)
[2016-08-22] MEDS: LOVENOX SUBQ SCH (09:03)
[2016-08-22] MEDS: NORVASC PO SCH (09:03)
[2016-08-22] MEDS: ROBAXIN PO SCH ×2 (09:03→20:30)
[2016-08-22] MEDS: COZAAR PO SCH (09:03)
[2016-08-22] MEDS: [UNRECOGNIZED DRUG - OTHER] PO SCH (09:03)
[2016-08-22] MEDS: MUCINEX PO SCH ×4 (09:03→20:33)
[2016-08-22] MEDS: SINGULAIR PO SCH (09:03)
[2016-08-22] MEDS: LIDODERM TOP SCH (09:05)
[2016-08-22] MEDS: ZYRTEC PO SCH (09:24)
[2016-08-22] MEDS: TESSALON PO PRN ×3 (09:24→20:40)
[2016-08-22] MEDS: GLUCOPHAGE PO SCH ×2 (09:24→16:18)
[2016-08-22] MEDS: LYRICA PO SCH ×3 (09:53→20:29)
[2016-08-22] MEDS: HUMALOG DOSE (PARKWAY) SUBQ SCH ×6 (09:54→20:29)
[2016-08-22] MEDS: NORCO-10 PO SCH ×4 (09:54→23:19)
[2016-08-22] MEDS: PRILOSEC PO SCH (09:55)
[2016-08-22] MEDS: DILAUDID IV PRN ×3 (10:24→20:40)
[2016-08-22] MEDS: ZITHROMAX 500 MG/NS 500 MG/250 ML IVPB IV SCH (12:18)
[2016-08-22] MEDS ORDERED: LANTUS INSULIN (PARKWAY) SUBQ SCH (21:00)
[2016-08-23] MEDS: SOLU-MEDROL IV SCH ×4 (02:16→22:50)
[2016-08-23] MEDS: DUONEB (A & A) INH SCH ×6 (03:25→22:43)
[2016-08-23] MEDS: DILAUDID IV PRN ×3 (03:51→16:38)
[2016-08-23] MEDS: PRILOSEC PO SCH (06:15)
[2016-08-23] MEDS: LYRICA PO SCH ×3 (06:15→20:46)
[2016-08-23] MEDS: NORCO-10 PO SCH ×3 (06:16→20:46)
[2016-08-23] MEDS: HUMALOG DOSE (PARKWAY) SUBQ SCH ×4 (06:16→20:44)
[2016-08-23] MEDS: TESSALON PO PRN ×3 (06:16→22:18)
--- NOTE | 2016-08-23 08:28 | PROGRESS NOTE ---
DATE: 08/23/2016 SUBJECTIVE: Patient notes she is breathing a little bit better. Still having cough, congestion. Still has shortness of breath. Still having dyspnea on exertion. Still hurting all over. PHYSICAL: Vital Signs: Temperature 98, pulse 101, respiratory 19. BP 157/91 to 128/79, saturation 95% on 2 L. General: Patient is awake, alert, obese female who is currently in mild respiratory distress. HEENT: Normocephalic, atraumatic. TALHA. Neck: Supple. Cardiovascular: Regular rate. Chest: Clear with occasional wheezing. Good air movement. Abdomen: Soft. Extremities: Moves all extremities. Neurologic: No focal changes. Skin: Warm and dry. No rashes. ASSESSMENT: 1. Asthma exacerbation. 2. Obesity. 3. Chronic sciatic nerve pain. 4. Diabetes. PLAN: We will decrease patient's Solu-Medrol to 40 IV q.6 today. We will continue to decrease her Dilaudid as this certainly is not improving her breathing. We will restart her home Lantus at 35 units and will follow. cc: Jabari Viera MD
[2016-08-23] MEDS: NORVASC PO SCH (08:29)
[2016-08-23] MEDS: ROBAXIN PO SCH ×2 (08:29→20:46)
[2016-08-23] MEDS: MUCINEX PO SCH ×3 (08:29→21:10)
[2016-08-23] MEDS: LIDODERM TOP SCH (08:29)
[2016-08-23] MEDS: COZAAR PO SCH (08:29)
[2016-08-23] MEDS: LOVENOX SUBQ SCH (08:29)
[2016-08-23] MEDS: ZYRTEC PO SCH (08:29)
[2016-08-23] MEDS: SINGULAIR PO SCH (08:29)
[2016-08-23] MEDS: GLUCOPHAGE PO SCH ×2 (08:29→16:29)
[2016-08-23] MEDS: [UNRECOGNIZED DRUG - OTHER] PO SCH (08:29)
[2016-08-23] MEDS: ZITHROMAX 500 MG/NS 500 MG/250 ML IVPB IV SCH (11:31)
[2016-08-23] MEDS: LANTUS INSULIN (PARKWAY) SUBQ SCH (20:44)
[2016-08-23] MEDS: PRAVACHOL PO SCH (20:45)
[2016-08-24] MEDS: DILAUDID IV PRN ×2 (00:09→23:15)
[2016-08-24] MEDS: DUONEB (A & A) INH SCH ×5 (03:33→20:16)
[2016-08-24] MEDS: SOLU-MEDROL IV SCH ×3 (05:36→22:02)
[2016-08-24] MEDS: LYRICA PO SCH ×3 (05:36→22:04)
[2016-08-24] MEDS: NORCO-10 PO SCH ×3 (05:36→21:59)
[2016-08-24 06:30] LABS: HEMATOCRIT 36.2 % (37.0-47.0); HEMOGLOBIN 12.4 g/dL (12.0-16.0); MCH 31.2 PG (27-31); MCHC 34.3 g/dL (33-37); MCV 91.2 FL (81-99); MPV 10.1 FL (7.4-10.4); RBC 3.97 XMIL (4.2-5.4)
[2016-08-24] MEDS: HUMALOG DOSE (PARKWAY) SUBQ SCH ×4 (06:35→22:04)
[2016-08-24] MEDS: PRILOSEC PO SCH (06:36)
[2016-08-24] MEDS: TESSALON PO PRN ×2 (06:38→17:45)
[2016-08-24 07:19] LABS: AGAP 13; ALBUMIN 3.9 g/dL (3.5-5.0); ALKALINE PHOSPHATASE 47 U/L (32-104); BUN 13 mg/dL (8-22); CALCIUM 8.5 mg/dL (8.8-10.2); CHLORIDE 101 mmol/L (98-107); COSMO 288; GOT 13 U/L (10-30); GPT 18 U/L (10-36); MAGNESIUM 2.2 mg/dL (1.5-2.7); SODIUM 137 mmol/L (136-145); TCO2 24 mmol/L (25-35); TOTAL BILIRUBIN < 0.15 mg/dL (0.20-1.00)
[2016-08-24] MEDS: GLUCOPHAGE PO SCH ×2 (07:54→16:35)
--- NOTE | 2016-08-24 08:39 | PROGRESS NOTE ---
DATE: 08/24/2016 SUBJECTIVE: Patient notes that she is breathing a little bit easier. Denies any chest pain or palpitations. Denies any fevers or chills. She still states that she is having pain in her right lower extremity due to her "sciatica". PHYSICAL EXAMINATION: Vital Signs: Temperature 98, pulse 77, respiratory rate 18, BP 164/93, saturation 98% on room air. General: Patient is awake, alert. She is currently in no respiratory distress. Speech is regular. Memory is intact. Neck: Supple. CV: Regular rate. Chest: Much more clear. Decreased breath sounds but mildly and equal bilaterally, improved from yesterday's exam. Abdomen: Soft. Extremities: Moves all extremities. Neurologic: No focal changes. Skin: Warm and dry. No rashes. ASSESSMENT: 1. Acute asthma exacerbation, improving. We will continue to decrease her Solu-Medrol. 2. Right lumbar pain with sciatica. Continue pain medication, although we will continue to wean off of Dilaudid. 3. Hypertension. 4. Diabetes. Blood sugars were better controlled. 5. Morbid obesity. PLAN: Hopefully home in the next 1-2 days. Further orders as needed. cc: Jabari Viera MD
[2016-08-24] MEDS: LIDODERM TOP SCH (10:00)
[2016-08-24] MEDS: LOVENOX SUBQ SCH (10:00)
[2016-08-24] MEDS: ZITHROMAX PO SCH (10:01)
[2016-08-24] MEDS: MUCINEX PO SCH (10:01)
[2016-08-24] MEDS: SINGULAIR PO SCH (10:01)
[2016-08-24] MEDS: [UNRECOGNIZED DRUG - OTHER] PO SCH (10:01)
[2016-08-24] MEDS: NORVASC PO SCH (10:02)
[2016-08-24] MEDS: COZAAR PO SCH (10:02)
[2016-08-24] MEDS: ROBAXIN PO SCH ×3 (10:02→16:35)
[2016-08-24] MEDS: HYDROCHLOROTHIAZIDE PO SCH (10:02)
[2016-08-24] MEDS: ZYRTEC PO SCH (10:02)
[2016-08-24] MEDS ORDERED: SOLU-MEDROL IV SCH (14:00)
[2016-08-24] MEDS: PRAVACHOL PO SCH (21:59)
[2016-08-24] MEDS: LANTUS INSULIN (PARKWAY) SUBQ SCH (22:03)
[2016-08-25] MEDS: DUONEB (A & A) INH SCH ×7 (00:14→23:18)
[2016-08-25] MEDS: MUCINEX PO SCH ×4 (01:53→20:37)
[2016-08-25] MEDS: LYRICA PO SCH ×3 (06:18→20:36)
[2016-08-25] MEDS: NORCO-10 PO SCH ×3 (06:18→22:15)
[2016-08-25] MEDS: PRILOSEC PO SCH (06:18)
[2016-08-25] MEDS: TESSALON PO PRN ×2 (06:19→17:02)
[2016-08-25] MEDS: HUMALOG DOSE (PARKWAY) SUBQ SCH ×4 (06:20→20:42)
[2016-08-25] MEDS: GLUCOPHAGE PO SCH ×2 (07:42→17:03)
--- NOTE | 2016-08-25 08:35 | PROGRESS NOTE ---
DATE: 08/25/2016 SUBJECTIVE: The patient notes that she is still weak and tired and fatigued. She also notes that she has intentionally not been getting out of bed because her sciatica bothers her. Notes that her breathing has improved. Denies any chest pain, palpitations. Denies any GI or issues. OBJECTIVE: Vital Signs: Temp 97, pulse 73, respiratory rate 18, BP 155/91, satting 100% on room air. General: Patient is an awake, alert, obese female, who is currently in minimal to mild respiratory distress, much improved from admission. HEENT: Normocephalic, atraumatic. Neck: Supple. CV: Regular rate. Chest: Much improved. Minimally decreased breath sounds bilaterally. Minimal wheezing bilaterally. Abdomen: Soft, obese. Extremities: Moves all extremities. Neurologic: No changes. LABS: No current labs today. Most recent blood sugar is 262. ASSESSMENT: 1. Chronic obstructive pulmonary disease with exacerbation. 2. Hyperglycemia with no previous history of diabetes. Certainly blood sugars are elevated secondary to her Solu-Medrol. She currently is also on Lantus and Glucophage, which was started in the hospital. PLAN: We will decrease her Solu-Medrol down to once a day. We will continue Lantus and Glucophage. Her A1c was 8.9 on admission, which certainly would beg the question that she has diabetes at home, although she is quite reluctant and recalcitrant to this idea. We will continue to discuss with patient diabetes, diabetic control. We will get dietitian involved today. We will decrease her Solu-Medrol, continue her medications and will follow. Discussed with patient that she has to start getting out of bed today because she should be able to discharge home in the morning. cc: Jabari Viera MD
[2016-08-25] MEDS ORDERED: SOLU-MEDROL IV ONE (09:00)
[2016-08-25] MEDS: [UNRECOGNIZED DRUG - OTHER] PO SCH (09:54)
[2016-08-25] MEDS: HYDROCHLOROTHIAZIDE PO SCH (09:54)
[2016-08-25] MEDS: COZAAR PO SCH (09:54)
[2016-08-25] MEDS: ZYRTEC PO SCH (09:54)
[2016-08-25] MEDS: ZITHROMAX PO SCH (09:54)
[2016-08-25] MEDS: NORVASC PO SCH (09:54)
[2016-08-25] MEDS: SINGULAIR PO SCH (09:54)
[2016-08-25] MEDS: LIDODERM TOP SCH (09:54)
[2016-08-25] MEDS: ROBAXIN PO SCH ×3 (09:55→17:03)
[2016-08-25] MEDS: LOVENOX SUBQ SCH (09:55)
[2016-08-25] MEDS: DILAUDID IV PRN ×2 (10:08→20:41)
[2016-08-25] MEDS ORDERED: LANTUS INSULIN (PARKWAY) SUBQ SCH (19:25)
[2016-08-25] MEDS: PRAVACHOL PO SCH (20:35)
[2016-08-26] MEDS: DUONEB (A & A) INH SCH ×3 (03:55→12:46)
[2016-08-26] MEDS: LYRICA PO SCH (06:10)
[2016-08-26] MEDS: NORCO-10 PO SCH (06:10)
[2016-08-26] MEDS: PRILOSEC PO SCH (06:11)
[2016-08-26] MEDS: HUMALOG DOSE (PARKWAY) SUBQ SCH ×2 (06:11→11:55)
[2016-08-26] MEDS: NORVASC PO SCH (08:22)
[2016-08-26] MEDS: [UNRECOGNIZED DRUG - OTHER] PO SCH (08:22)
[2016-08-26] MEDS: GLUCOPHAGE PO SCH (08:22)
[2016-08-26] MEDS: ROBAXIN PO SCH (08:22)
[2016-08-26] MEDS: LIDODERM TOP SCH (08:22)
[2016-08-26] MEDS: SINGULAIR PO SCH (08:23)
[2016-08-26] MEDS: ZITHROMAX PO SCH (08:23)
[2016-08-26] MEDS: HYDROCHLOROTHIAZIDE PO SCH (08:23)
[2016-08-26] MEDS: LOVENOX SUBQ SCH (08:23)
[2016-08-26] MEDS: COZAAR PO SCH (08:23)
[2016-08-26] MEDS: ZYRTEC PO SCH (08:23)
[2016-08-26] MEDS: MUCINEX PO SCH (08:26)
[2016-08-26] MEDS: TESSALON PO PRN (08:32)
[2016-08-26 11:35] VITALS: BP 136/79
--- NOTE | 2016-08-26 14:22 | DISCHARGE SUMMARY ---
ADMISSION DATE: 08/20/2016 DISCHARGE DATE: 08/26/2016 ADMISSION DIAGNOSES: 1. Acute asthma exacerbation. 2. History of chronic obstructive pulmonary disease. 3. Supraventricular tachycardia. 4. Diabetes type 2. 5. Hypertension. DISCHARGE DIAGNOSES: 1. Acute asthma exacerbation with improvement. 2. History of chronic obstructive pulmonary disease. 3. Supraventricular tachycardia resolved. 4. Diabetes type 2. 5. Hypertension. SUMMARY OF FINDINGS: This is a 55-year-old female who presented with complaints of increased shortness of breath for 48 hours that has progressively worsened. States that she has been taking her albuterol nebulizers hourly at home and did not have an improvement in her symptoms. She had an O2 saturation of 96% on 2 L and was reportedly in SVT in the ambulance on arrival. Not sure of the rate and that it subsided spontaneously. Her chest x x-ray revealed no evidence of acute pathology. Her lungs were clear per radiology read. She was given DuoNebs with magnesium supplementation and Solu-Medrol. Admitted, placed on patterned blood sugars with sliding scale insulin per a high dose protocol. She has been weaned on her steroids. She has responded well to her treatment. She is saturating 99% on room air. DISPOSITION: She states she is feeling much better and it is felt that she can safely be discharged home today. DISCHARGE MEDICATIONS: 1. Norvasc 5 mg p.o. daily. 2. Zithromax 500 mg p.o. daily #5 with no refills. 3. Tessalon Perles 200 mg p.o. t.i.d. p.r.n. #60 with no refills. 4. Cetirizine 10 mg p.o. daily. 5. [place] 10 1 p.o. t.i.d. p.r.n. #30 with no refills. 6. Lantus 35 units subcutaneous at bedtime. 7. Losartan 100 mg p.o. daily. 8. Metformin 1000 mg p.o. b.i.d. 9. Robaxin 500 mg p.o. t.i.d. #60 with no refills. 10. Montelukast sodium 10 mg p.o. daily. 11. Omeprazole 40 mg p.o. daily. 12. Pravastatin 10 mg p.o. daily. 13. Lyrica 75 mg p.o. t.i.d. 14. Theophylline 400 mg p.o. daily. 15. Albuterol nebs 4 times daily as needed. 16. Medrol Dosepak, take as directed. FOLLOWUP: She will need to follow up with her primary care physician in 1-2 weeks. Dictated by MERI Pruett for Jabari Viera MD cc: MERI Pruett MD Tiffany Hendricks, MD
== END 2016-08-26 13:55 | disposition home or self-care (01) ==
LOC: P.ED 06:40 → SUATTDRO 10:14 → P.MEDSURG 10:14
PROVIDERS: ATTEND Family Medicine

== ENCOUNTER 2018-05-07 08:12 | Inpatient (IN) ==
[2018-05-07] MEDS ORDERED: DUONEB (A & A) INH ONE ×3 (08:17→11:33)
[2018-05-07] MEDS ORDERED: SOLU-MEDROL IV ONE (08:17)
[2018-05-07] MEDS ORDERED: SOLU-MEDROL ONE (08:20)
[2018-05-07] MEDS ORDERED: NS 1,000 ML IV ONE (08:47)
[2018-05-07 09:08] LABS: BASO# 0.03 X1000 (0.0-0.2); BASO% 0.4 % (0.0-0.8); EOS# 0.27 X1000 (0.0-0.7); HEMATOCRIT 42.8 % (37.0-47.0); IMM GRAN# 0.03 X1000 (0.0-0.04); IMM GRAN% 0.4 % (0.0-0.5); LYMPH# 2.07 X1000 (1.2-3.4); LYMPH% 30.4 % (20.5-51.1); MCH 30.2 PG (27-31); MCHC 32.7 g/dL (33-37); MCV 92.4 FL (81-99); MONO# 0.56 X1000 (0.11-0.59); MONO% 8.2 % (1.7-9.3); MPV 9.2 FL (7.4-10.4); NEUT# 3.85 X1000 (1.4-6.5); NEUT% 56.6 % (42.2-75.2); PLT 330 X1000 (130-400); RBC 4.63 XMIL (4.2-5.4); RDW 13.6 % (11.5-14.5); WBC 6.81 X1000 (4.8-10.8)
[2018-05-07 09:23] LABS: AGAP 14; ALB/GLOB RATIO 2.1; ALBUMIN 5.1 g/dL (3.5-5.0); ALKALINE PHOSPHATASE 81 U/L (32-104); BUN 4 mg/dL (8-22); CALCIUM 9.8 mg/dL (8.8-10.2); CHLORIDE 96 mmol/L (98-107); COSMO 276; CREATININE 0.5 mg/dL (0.5-0.9); ESTIMATED GFR > 60; GLUCOSE 196 mg/dL (70-104); GOT 15 U/L (10-30); GPT 17 U/L (10-36); POTASSIUM 3.9 mmol/L (3.5-5.1); SODIUM 137 mmol/L (136-145); TCO2 27 mmol/L (25-35); TOTAL BILIRUBIN 0.17 mg/dL (0.20-1.00); TOTAL PROTEIN 7.5 g/dL (6.3-8.3)
--- NOTE | 2018-05-07 09:32 | Diag Imaging Result Doc PS360 ---
EXAM: CHEST-PORTABLE HISTORY: sob/cp TECHNIQUE: Chest single view COMPARISON: 03/18/2018 FINDINGS: The lungs are well expanded. The heart is not enlarged. The vessels are not distended. There are no infiltrates. No effusion identified. IMPRESSION: Negative exam. Electronically signed by Terry Aquino 05/07/2018 9:30 AM
[2018-05-07 11:55] LABS: ALLEN TEST YES; BE -0.4 mmoll (-3.0-3.0); BLOOD TYPE ARTERIAL; HCO3-(ACT) 24.5 mmoll (20.0-26.0); METHB 1.1 % (0.0-1.5); O2(CT) 18.4 mL/dL (15.0-23.0); O2HB 94.8 % (95.0-99.0); PCO2(98.6) 42 mmHg (35-45); PO2(98.6) 83 mmHg (60-100); SAMPLE BLOOD; SAO2 97.8 % (95.0-100.0); THB 13.8 g/dL (11.5-17.4); pH(98.6) 7.38 (7.35-7.45)
[2018-05-07 11:56] LABS: MODALITY CANNULA
--- NOTE | 2018-05-07 13:25 | PROVIDER DOCUMENTATION ---
This chart was entered by Tanisha Cuellar Scribe, acting as scribe for Sj Cordero MD. HPI-Respiratory General - General Chief Complaint: Asthma Attack Stated Complaint: ASTHMA ATTACK Time Seen by Provider: 05/07/18 08:41 Source: patient Allergies/Adverse Reactions: Patient Allergies Allergy/AdvReac Type Severity Reaction Status Date / Time ibuprofen [From Advil] Allergy Intermediate SHORTNESS Verified 03/18/18 06:14 OF BREATH naproxen sodium * Allergy Intermediate SHORTNESS Verified 03/18/18 06:14 [From Aleve] OF BREATH morphine Allergy Mild "THE Verified 03/18/18 06:14 ULTIMATE DOOM" NSAIDS (Non-Steroidal Allergy SHORTNESS Verified 03/18/18 06:14 Anti-Inflamma OF BREATH Home Medications: Home Medication List Medication Instructions Recorded Confirmed Last Taken Type Albuterol Sulfate 2.5 mg IH 4XDAY PRN PRN 08/20/16 03/18/18 03/05/17 08:45 History Amlodipine Besylate 5 mg PO DAILY 08/20/16 03/18/18 03/05/17 08:00 History Insulin Aspart [Novolog] 100 unit SQ BID 08/20/16 03/18/18 08/19/16 20:00 History Ipratropium [place] 0.5 mg PO 4XDAY PRN PRN 08/20/16 03/18/18 03/05/17 08:00 History Losartan Potassium 100 mg PO DAILY 08/20/16 03/18/18 03/05/17 08:00 History Metformin HCl 1,000 mg PO BID 08/20/16 03/18/18 03/05/17 08:00 History Montelukast Sodium 10 mg PO DAILY 08/20/16 03/18/18 03/05/17 08:00 History Omeprazole 40 mg PO DAILY 08/20/16 03/18/18 03/05/17 08:00 History Pravastatin Sodium 10 mg PO DAILY 08/20/16 05/02/17 03/05/17 08:00 History Theophylline Anhydrous 400 mg PO DAILY 08/20/16 03/18/18 03/05/17 08:00 History [Theophylline] Triamterene/Hydrochlorothiazid 37.5 mg PO DAILY 08/20/16 03/18/18 03/05/17 08: 00 History [Triamterene-Hctz 37.5-25 mg Cp] Arformoterol Neb [Brovana Neb] 15 mcg INH BID 03/05/17 05/02/17 03/05/17 08:45 History Insulin Glargine [Lantus] 35 unit SUBQ QHS 03/05/17 03/18/18 03/04/17 20:00 History Mupirocin Ointment [Bactroban 1 applicatn TOP TID #1 tube 03/05/17 05/02/17 Unknown Rx Ointment] Triamcinolone 0.1% Oint [Kenalog 1 applicatn TOP TID #2 tube 03/05/17 05/02/17 Unknown Rx 0.1% Ointment] Guaifenesin/Codeine [Robitussin-AC] 5 ml PO Q4H PRN PRN #6 christina 05/02/17 Unknown Rx Oseltamivir [Tamiflu] 75 mg PO BID #10 cap 05/02/17 Unknown Rx Azithromycin [Zithromax Z-Florentino] 250 mg PO DIRECTED #1 pkg 05/05/17 Unknown Rx Hydrocodone/Acetaminophen [[place] 1 ea PO Q4-6H PRN PRN #14 tab 05/05/17 Unknown Rx 7.5-325 Tablet] Promethazine [Phenergan] 25 mg PO Q6H PRN PRN #20 tab 05/05/17 Unknown Rx Methylprednisolone [Medrol Dosepak] 4 mg PO DIRECTED #1 pkg 03/18/18 Unknown Rx - History of Present Illness-Resp Nature of Presenting Problem: 57 yof long hx of asthma presents c/o for asthma attack. pt states feeling SOB last night and worse this morning. pt states using inhaler and nebulizer last night and [employer] Severity in ED: reports: moderate Onset/Duration: reports: last night Timing: reports: still present Review of Systems - Adult - REVIEW OF SYSTEMS - ADULT Constitutional: denies: chills, fever, fatique Eyes: reports: no symptoms reported Ears, Nose, Mouth & Throat: denies: ear pain, sinus problem, throat pain Cardiovascular: denies: chest pain, irregular heart rate, syncope Respiratory: reports: shortness of breath (asthma attack), wheezing. denies: chronic cough, cough, excessive sputum production, hemoptysis, pleurisy Gastrointestinal: denies: difficulty swallowing, frequent heartburn, nausea Genitourinary: reports: no symptoms reported Musculoskeletal: reports: no symptoms reported Integumentary: reports: no symptoms reported Neurological: reports: no symptoms reported Psychiatric: reports: no symptoms reported Endocrine: reports: no symptoms reported Hematologic/Lymphatic: reports: no symptoms reported Allergic/Immunologic: reports: no symptoms reported All Other Systems: Reviewed and Negative Past History - Adult - PAST MEDICAL HISTORY-ADULT Review of Records: reports: Nursing Assessment Review, Medications Reviewed Major Childhood Illnesses: reports: denies history Cardiovascular: reports: HTN, hyperlipidemia Respiratory: reports: asthma, COPD Gastrointestinal: reports: denies history Obstetrical/Gynecological: reports: denies history Genitourinary: reports: denies history Musculoskeletal: reports: arthritis, chronic pain Neurological: reports: denies history Psychiatric: reports: anxiety, depression Endocrine/Immune: reports: Diabetes Other Conditions: reports: denies history - PRIOR SURGERIES/PROCEDURES Surgical/Procedure History: reports: reviewed, not pertinent, other ( hemrrhoidectomy) - IMMUNIZATION STATUS Childhood Immunizations: See Nurse Assessment Flu Vaccine: See Nurse Assessment - FAMILY HISTORY Family History: reviewed, not pertinent - SOCIAL HISTORY Smoking: non-smoker Substance Use: none/never Physical Exam-General - PHYSICAL EXAM-ADULT Initial Vital Signs Reviewed: Yes - CONSTITUTIONAL General Appearance: alert, moderate distress - EYES Eyes: PERRL/EOMI, pink conjunctivae - HEAD, EARS, NOSE, MOUTH & THROAT HENMT: moist mucous membranes - NECK Neck: non-tender, full range of motion, supple, normal inspection - RESPIRATORY Respiratory: chest non-tender, respiratory distress (mod), wheezing (diffuse wheezing) - CARDIOVASCULAR Cardiovascular: tachycardia - GASTROINTESTINAL (ABDOMEN) Abdominal Exam: normal bowel sounds, non tender, soft, no organomegaly, no pulsatile mass - MUSCULOSKELETAL Back Exam: normal inspection Extremity: normal range of motion, non-tender, normal gait - SKIN Integumentary: normal color, normal turgor, warm/dry - NEUROLOGIC Neurologic: grossly normal - PSYCHIATRIC Psych/Mental Status: normal mood/affect, normal thought content, normal thought process, oriented x 3 Progress - PLAN OF CARE/RESULTS Progress/Plan/Lab Results: Vital Signs - 8 hr 05/07/18 08:25 05/07/18 08:35 05/07/18 09:30 Temperature 98.1 F Pulse Rate 126 H 123 H 115 H Respiratory Rate 22 28 H 20 Blood Pressure 150/93 150/93 O2 Sat by Pulse Oximetry 98 96 05/07/18 10:01 05/07/18 10:10 05/07/18 10:15 Temperature Pulse Rate 108 H 116 H Respiratory Rate Blood Pressure 127/101 O2 Sat by Pulse Oximetry 95 99 98 05/07/18 10:20 05/07/18 10:30 05/07/18 10:31 Temperature Pulse Rate 117 H 110 H 110 H Respiratory Rate Blood Pressure 151/89 O2 Sat by Pulse Oximetry 98 94 L 94 L 05/07/18 10:40 05/07/18 10:50 05/07/18 11:00 Temperature Pulse Rate 112 H 113 H 109 H Respiratory Rate Blood Pressure O2 Sat by Pulse Oximetry 95 95 97 05/07/18 11:02 05/07/18 11:31 05/07/18 12:01 Temperature Pulse Rate 109 H 109 H 106 H Respiratory Rate Blood Pressure 132/95 127/95 133/100 O2 Sat by Pulse Oximetry 95 93 L 98 05/07/18 13:02 Temperature Pulse Rate 104 H Respiratory Rate Blood Pressure 148/92 O2 Sat by Pulse Oximetry 91 L Laboratory Results - last 24 hr 05/07/18 05/07/18 05/07/18 08:20 08:20 11:40 WBC 6.81 RBC 4.63 Hgb 14.0 Hct 42.8 MCV 92.4 MCH 30.2 MCHC 32.7 L RDW Std Deviation 13.6 Plt Count 330 MPV 9.2 Immature Gran % (Auto) 0.4 Neut % (Auto) 56.6 Lymph % (Auto) 30.4 [place] % (Auto) 8.2 Eos % (Auto) 4.0 Baso % (Auto) 0.4 Immature Gran # (Auto) 0.03 Neut # (Auto) 3.85 Lymph # (Auto) 2.07 [place] # (Auto) 0.56 Eos # (Auto) 0.27 Baso # (Auto) 0.03 Specimen Type ARTERIAL Sample Site L RADIAL pH 7.38 pCO2 42 pO2 83 HCO3 24.5 Base Excess -0.4 Oxyhemoglobin 94.8 L ABG O2 Sat (Calculated) 18.4 ABG O2 Saturation 97.8 ABG Carboxyhemoglobin 2.00 ABG Methemoglobin 1.1 Preet Test YES A-a O2 Difference 64.0 Total Hemoglobin 13.8 Lactate 4.20 H Liter Flow 2.0 Blood Gas Modality CANNULA FiO2 % 28.0 Sodium 137 Potassium 3.9 Chloride 96 L Carbon Dioxide 27 Anion Gap 14 BUN 4 L Creatinine 0.5 Estimated GFR/1.73 m2 > 60 BUN/Creatinine Ratio 8 Glucose 196 H Calculated Osmolality 276 Calcium 9.8 Total Bilirubin 0.17 L AST 15 ALT 17 Alkaline Phosphatase 81 Total Protein 7.5 Albumin 5.1 H Globulin 2.4 Albumin/Globulin Ratio 2.1 Orders Category Date Time Status CHEST-PORTABLE [RAD] Stat Exams 05/07/18 09:14 Completed ABG [RESP] Routine Lab 05/07/18 11:40 Completed CBC WITH ELECTRONIC DIFF [HEME] Stat Lab 05/07/18 08:20 Completed CMP [COMPREHENSIVE METABOLIC PANEL] [CHEM] Stat Lab 05/07/18 08:20 Completed 0.9% Sodium Chloride Inj [Ns] 1,000 ml Med 05/07/18 08:47 Discontinued IV 999 mls/hr Albuterol 2.5MG/Ipratrop 0.5MG [Duoneb (A & A)] Med 05/07/18 08:17 Discontinued 3 ml INH NOW ONE Albuterol 2.5MG/Ipratrop 0.5MG [Duoneb (A & A)] Med 05/07/18 09:47 Discontinued 3 ml INH NOW ONE Albuterol 2.5MG/Ipratrop 0.5MG [Duoneb (A & A)] Med 05/07/18 11:33 Discontinued 3 ml INH NOW ONE Methylprednisolone Sod Succ [Solu-Medrol] Med 05/07/18 08:20 Discontinued 125 mg .ROUTE .STK-MED ONE Methylprednisolone Sod Succ [Solu-Medrol] Med 05/07/18 08:17 Discontinued 125 mg IV NOW ONE Aerosol Treatments Routine Oth 05/07/18 08:17 Completed Aerosol Treatments Routine Oth 05/07/18 09:48 Completed Aerosol Treatments Routine Oth 05/07/18 11:33 Completed Aerosol Treatments Stat Ot 05/07/18 08:17 Completed Aerosol Treatments Stat Ot 05/07/18 09:48 Completed Aerosol Treatments Stat Ot 05/07/18 11:33 Completed Result Diagrams: 05/07/18 08:20 05/07/18 08:20 - REASSESSMENT Reassessment #1 Time Reassessed: 10:40 (After two breathing treatments pt is not any better. Will be doing blood gases and another breathing treatment.) - XRAY 1 XRAY: Bilateral XRAY Study: Chest Impression: Normal (IMPRESSION: Negative exam. Electronically signed by Terry Miles 05/07/2018 9:30 AM) - CONSULTS/PCP/HOSPITALIST Notification #1 *Consult/PCP/Hospitalist*: Dr. Jay Time Discussed: 13:21 Consult Disposition: Admit Departure - Departure Date of Disposition Decision: 05/07/18 Time of Disposition Decision: 13:13 DIAGNOSIS: Status asthmaticus Disposition: ADMITTED INPATIENT 09 Certified Medical Emergency: Emergent Condition: Stable Referrals and Follow-Ups: Luke Cordoba MD [Primary Care Provider] - - Critical Care Note This patient required my direct & personal management of CC.: Yes Total Time (mins): 45 Critical Care Statement: This patient required my direct personal management to treat or rule out processes, the absence of which, could potentiallly result in sudden, clinically significant life or limb threatening deterioration. Attestation - Physician/ ELDA Attestation Patient care was provided by Advanced Practice Provider:: No The physician spent face to face time with patient:: Yes Advanced Practice Provider documentation review:: Supervising physician onsite and consulted in the evaluation and care of this patient. The physician did have a face to face encounter with the patient. This chart was documented by the indicated scribe, (Tanisha Cuellar Scribe) and accurately reflects the services I performed and decisions made by me, Sj Cordero MD, as attested by the provider's signature.
[2018-05-07] MEDS ORDERED: TYLENOL PO PRN (14:40)
[2018-05-07] MEDS ORDERED: DUONEB (A & A) INH PRN (14:40)
[2018-05-07] MEDS ORDERED: APRESOLINE IV PRN (14:40)
[2018-05-07] MEDS ORDERED: NORVASC PO ONE (14:40)
[2018-05-07] MEDS ORDERED: SYMBICORT 80/4.5 MICROGM INHALER INH ONE (14:40)
[2018-05-07] MEDS ORDERED: ZOFRAN IV PRN (14:40)
--- NOTE | 2018-05-07 14:44 | HISTORY AND PHYSICAL ---
HISTORY OF PRESENT ILLNESS: This is a 57-year-old female with history of asthma with last year, I think in August 2016, admitted for asthma attack. PAST MEDICAL HISTORY: 1. She has had some sciatica. 2. A long history of asthma. 3. Diabetes mellitus, type 2. 4. Hypertension. 5. Hyperlipidemia. 6. Anxiety. 7. Sciatica with right lower extremity pain in the past. PAST SURGICAL HISTORY: Hemorrhoidectomy. SOCIAL HISTORY: Quit smoking in 2007. Denies alcohol or illicit drugs. She does live alone. Her daughter was there at the bedside. ALLERGIES: Morphine and nonsteroidal anti-inflammatory drugs which worsen asthmatic attack. REVIEW OF SYSTEMS: Constitutional: She did not report any weight gain or loss. No fever or chills. HEENT: No change in vision or hearing acuity. Neck: No neck pain or cervical adenopathy reported. Respiratory: As above, increased wheezing, increased tightness, increased shortness of breath with any exertion that has been going on for a couple days, but got much worse yesterday evening and today. Cardiovascular: Review of cardiovascular exam no chest pain or tachy palpitation. Gastrointestinal and Genitourinary: No gross hematuria or dysuria. Musculoskeletal/Neurologic: No focal complaints. Endocrinologic/Hematologic: No significant history. PHYSICAL EXAMINATION: VITAL SIGNS: Temperature 98.1 degrees, pulse 100, respirations 20, blood pressure 148/92. HEENT: Pupils are equal and round. NECK: No distended neck veins. CVP less than 6 cm from right atrium. Supple without adenopathy. No thyromegaly. CARDIOVASCULAR: Regular rhythm and rate without murmur or S3. LUNGS: Both inspiratory and expiratory wheezing appreciated. EXTREMITIES: No pedal edema. ABDOMEN: Soft. NEUROLOGIC: No focal deficits. DIAGNOSTIC STUDIES: White count 6810, hematocrit is 42, platelet count 330, 000. Sodium 137, potassium 3.9, chloride 96, BUN 4, creatinine 0.5, AST was 15, ALT was 17, alkaline phosphatase 81, albumin was 5.1. Blood gas pH is 7.38, pCO2 was 42, PO2 is 83, O2 saturation 94%, and that was on 2 L per nasal cannula. Chest x-ray: Negative exam. Lungs are well expanded. Heart is not enlarged. Vessels were not distended. No infiltrates or effusion. ASSESSMENT AND PLAN: 1. Asthma-type bronchospasm. It sounds like she has moderate to severe asthma. I do not think she is on a steroid inhaler, although she had recently gotten samples of Breo Ellipta, I believe, but she has been on her nebulized bronchodilators and we will put her on DuoNeb nebs q.3 h. while awake and then she can have one q.2 h. p.r.n. We will put her on Solu-Medrol loaded with 125 mg and run 80 mg IV q.8 h. We will continue her normal inhalers at home, but we will add Symbicort, and we will give her 2 puffs of Symbicort twice a day. We will check a T4 and TSH and B12 and folate. 2. Diabetes mellitus. We will check pattern sugars, sliding scale. I expect her sugars to go up a little on the steroids. 3. History of hypertension. We will watch blood pressure. 4. Hyperlipidemia. We will check a lipid profile in the morning. 5. History of anxiety. Aware. 6. She has had a history of sciatica and right lower extremity pain in the past aware. REVIEW OF HER MEDICATIONS FROM HOME: She is on amlodipine 5 mg a day. Brovana 15 mcg inhaler b.i.d., that is arformoterol. She was taking azithromycin; I think it was a Z- Florentino. She was getting guaifenesin and Robitussin AC 5 mL q.4 h. p.r.n. . She is on [place] 7.5 q.4-6 h. p.r.n. pain. Lantus 35 units subcutaneous at bedtime. Ipratropium bromide 0.5 mg 4 times a day. Losartan 100 mg a day. Metformin 1000 mg b.i.d. Montelukast which is Singulair 10 mg a day. Omeprazole 40 mg a day. Tamiflu 75 mg b.i.d. Pravastatin 10 mg a day. Continue with theophylline 400 mg a day. She is on triamterene/hydrochlorothiazide 37.5/25 once a day. We will continue that as well. We will give her normal saline at 75 mL an hour and go ahead and put her on Rocephin 1 g q.24 h. just to cover for bronchitic organisms. cc: MD CARO Chen
[2018-05-07] MEDS: HUMALOG SUBQ SCH ×2 (15:42→21:11)
[2018-05-07] MEDS: DUONEB (A & A) INH SCH ×3 (16:58→22:45)
[2018-05-07] MEDS: THEO-24 PO SCH (17:13)
[2018-05-07] MEDS: BIDEX PO SCH (17:14)
[2018-05-07] MEDS: LOVENOX SUBQ SCH (17:15)
[2018-05-07] MEDS: SYMBICORT 80/4.5 MICROGM INHALER INH SCH (19:15)
[2018-05-07] MEDS: SOLU-MEDROL IV SCH (21:11)
[2018-05-07] MEDS ORDERED: TUSSIONEX LIQUID PO ONE (23:15)
[2018-05-08] MEDS: DUONEB (A & A) INH SCH ×7 (01:30→22:19)
[2018-05-08] MEDS ORDERED: HALL'S COUGH LOZENGE MT PRN (04:53)
--- NOTE | 2018-05-08 06:35 | Diag Imaging Result Doc PS360 ---
EXAM: CHEST-PORTABLE HISTORY: short of breath TECHNIQUE: Portable chest single view COMPARISON: 05/07/2018 FINDINGS: The lungs are well expanded. The heart is not enlarged. The vessels are not distended. There are no infiltrates. No effusion identified. IMPRESSION: Negative exam. Electronically signed by Terry Aquino 05/08/2018 6:31 AM
[2018-05-08] MEDS: HUMALOG SUBQ SCH ×4 (06:50→21:51)
[2018-05-08] MEDS: SYMBICORT 80/4.5 MICROGM INHALER INH SCH ×2 (07:45→19:39)
[2018-05-08 07:54] LABS: BASO# 0.01 X1000 (0.0-0.2); BASO% 0.1 % (0.0-0.8); HEMATOCRIT 40.1 % (37.0-47.0); IMM GRAN# 0.06 X1000 (0.0-0.04); IMM GRAN% 0.7 % (0.0-0.5); LYMPH# 1.14 X1000 (1.2-3.4); LYMPH% 13.9 % (20.5-51.1); MCH 30.2 PG (27-31); MCHC 32.4 g/dL (33-37); MONO# 0.44 X1000 (0.11-0.59); MONO% 5.3 % (1.7-9.3); MPV 9.4 FL (7.4-10.4); NEUT# 6.58 X1000 (1.4-6.5); PLT 282 X1000 (130-400); RBC 4.31 XMIL (4.2-5.4); RDW 13.7 % (11.5-14.5); WBC 8.23 X1000 (4.8-10.8)
[2018-05-08 08:18] LABS: FREE T4 1.13 ng/dL (0.93-1.70); TSH 0.41 uIUmL (0.27-4.20)
[2018-05-08 08:35] LABS: AGAP 12; BUN 9 mg/dL (8-22); CALCIUM 9.7 mg/dL (8.8-10.2); CHLORIDE 100 mmol/L (98-107); COSMO 286; CREATININE 0.6 mg/dL (0.5-0.9); ESTIMATED GFR > 60; SODIUM 137 mmol/L (136-145); TCO2 25 mmol/L (25-35)
[2018-05-08 08:36] LABS: GLUCOSE 334 mg/dL (70-104); POTASSIUM 4.8 mmol/L (3.5-5.1)
[2018-05-08] MEDS: NORVASC PO SCH (09:17)
[2018-05-08] MEDS: BIDEX PO SCH ×3 (09:17→17:44)
[2018-05-08] MEDS: SOLU-MEDROL IV SCH ×2 (09:18→21:51)
[2018-05-08] MEDS: THEO-24 PO SCH (09:52)
[2018-05-08] MEDS: SINGULAIR PO SCH (13:37)
--- NOTE | 2018-05-08 14:13 | PROGRESS NOTE ---
DATE: 05/08/2018 SUBJECTIVE: This patient is still complaining of shortness of breath. She is still having end- expiatory wheezing. She has been coughing up phlegm that has changed from whitish to yellowish. I will start this patient on doxycycline. I do believe this patient has bronchitis on top of the asthma exacerbation. OBJECTIVE: Vital Signs: Temperature 98 degrees, pulse 76, respiratory rate 22, blood pressure 131/84, oxygen saturation 98 on 2 L of nasal cannula. HEENT: Head normocephalic. No trauma. PERRLA. Neck: Supple. No JVD. No masses. Central trachea. Chest: Decreased breath sounds globally with prolonged expiratory phase and end-expiratory wheezing, some crepitus at the bases. Abdomen: Soft, nontender, nondistended. No hepatosplenomegaly. Extremities: No edema. No clubbing. No cyanosis. Neurological: The patient is alert and oriented x3. No focal deficits. LABORATORY: WBC 8.2, hemoglobin 13, hematocrit 40.1, platelets 282,000. Sodium 137, potassium 4.8, chloride 100, bicarbonate 25, BUN 9, creatinine 0.6, glucose 334, calcium 9.7. ASSESSMENT AND PLAN: 1. Asthma exacerbation with possible bronchitis. I will add antibiotics to her treatment. Also I will continue with Singulair which she has been taking at home. Continue breathing treatments, oxygen supplementation, and cough medication. She has been coughing up yellowish phlegm. She denies fever. 2. Likely bronchitis. As above. 3. Type 2 diabetes. Continue pattern of blood sugar and sliding scale insulin. Her blood sugar increased and this is likely due to the steroids. 4. Hypertension. Continue with the same management. 5. Hyperlipidemia. Aware. I will ask for a lipid panel and I will put her back on her pravastatin. 6. History of anxiety. Aware. 7. History of sciatica and right lower extremity pain in the past. Aware. 8. Deep vein thrombosis prophylaxis with Lovenox. cc: Mark Noel MD
[2018-05-08] MEDS: DOXYCYCLINE 100 MG in NS 250 ML IV SCH (16:00)
[2018-05-08] MEDS: LOVENOX SUBQ SCH (17:44)
[2018-05-09] MEDS: DOXYCYCLINE 100 MG in NS 250 ML IV SCH ×2 (01:16→14:00)
[2018-05-09] MEDS: DUONEB (A & A) INH SCH ×8 (01:45→22:37)
[2018-05-09] MEDS: HUMALOG SUBQ SCH ×4 (06:36→22:38)
[2018-05-09 07:31] LABS: BASO# 0.01 X1000 (0.0-0.2); BASO% 0.1 % (0.0-0.8); HEMATOCRIT 36.3 % (37.0-47.0); HEMOGLOBIN 11.7 g/dL (12.0-16.0); IMM GRAN# 0.06 X1000 (0.0-0.04); IMM GRAN% 0.8 % (0.0-0.5); LYMPH# 1.02 X1000 (1.2-3.4); MCH 30.4 PG (27-31); MCHC 32.2 g/dL (33-37); MCV 94.3 FL (81-99); MONO# 0.37 X1000 (0.11-0.59); MONO% 5.1 % (1.7-9.3); MPV 9.4 FL (7.4-10.4); NEUT# 5.85 X1000 (1.4-6.5); PLT 230 X1000 (130-400); RBC 3.85 XMIL (4.2-5.4); RDW 13.6 % (11.5-14.5); WBC 7.31 X1000 (4.8-10.8)
[2018-05-09 08:10] LABS: AGAP 11; BUN 8 mg/dL (8-22); CALCIUM 8.9 mg/dL (8.8-10.2); CHLORIDE 102 mmol/L (98-107); CHOLESTEROL 169 mg/dL (0-200); COSMO 290; CREATININE 0.6 mg/dL (0.5-0.9); ESTIMATED GFR > 60; GLUCOSE 345 mg/dL (70-104); HDL 45 mg/dL (45-65); LDL 90 mg/dL; POTASSIUM 4.5 mmol/L (3.5-5.1); SODIUM 139 mmol/L (136-145); TCO2 26 mmol/L (25-35); TRIGLYCERIDES 171 mg/dL (35-135); VLDL 34 mg/dL
[2018-05-09] MEDS: SYMBICORT 80/4.5 MICROGM INHALER INH SCH ×2 (08:21→20:34)
[2018-05-09] MEDS: SINGULAIR PO SCH (09:05)
[2018-05-09] MEDS: NORVASC PO SCH (09:05)
[2018-05-09] MEDS: PRAVACHOL PO SCH (09:05)
[2018-05-09] MEDS: PRILOSEC PO SCH (09:06)
[2018-05-09] MEDS: JANUVIA PO SCH (09:06)
[2018-05-09] MEDS: BIDEX PO SCH (09:06)
[2018-05-09] MEDS: SOLU-MEDROL IV SCH (09:10)
[2018-05-09] MEDS: THEO-24 PO SCH (09:13)
[2018-05-09] MEDS ORDERED: TESSALON PO SCH (13:00)
[2018-05-09] MEDS: NS 1,000 ML IV SCH (14:21)
[2018-05-09] MEDS: TUSSIONEX LIQUID PO SCH ×2 (14:21→22:32)
[2018-05-09] MEDS: FLEXERIL PO PRN ×2 (14:30→22:32)
[2018-05-09] MEDS: LEVAQUIN 750 MG/D5W 750 MG/150 ML IVPB IV SCH (15:54)
--- NOTE | 2018-05-09 16:02 | PROGRESS NOTE ---
DATE: 05/09/2018 SUBJECTIVE: This patient is still complaining of shortness of breath, and she is still having wheezing. She is still on steroids. She has been complaining of cough so I have stopped her cough medication, and I put her on Tussionex twice a day. I have switched the antibiotics, and given this patient's hyperglycemia, I have increased the dose of the sliding scale insulin to the intermediate dose, and I have decreased the dose of the steroids. OBJECTIVE: Vital Signs: Temperature 97.9 degrees, pulse 84, respiratory rate 15, blood pressure 146/86, oxygen saturation 100% on nasal cannula 3 L. HEENT: Head normocephalic, no trauma. PERRLA. Neck: Supple. No JVD. No masses. Central trachea. Chest: Decreased breath sounds globally with prolonged expiratory phase and expiratory wheezing. Some crepitus at the bases. Abdomen: Soft, nontender, nondistended. No hepatosplenomegaly. Extremities: No edema. No clubbing. No cyanosis. Neurological: The patient is alert and oriented x3. No focal deficits. LABORATORY DATA: WBC 7.3, hemoglobin 11.7, hematocrit 36.3, platelets 230,000. Sodium 139, potassium 4.5, chloride 102, bicarbonate 26, BUN 8, creatinine 0.6, glucose 345, calcium 8.9. ASSESSMENT AND PLAN: 1. Asthma exacerbation with possible bronchitis. I added antibiotics to her treatment, but I will switch it today to levofloxacin. I will switch the cough medication since she is still coughing a lot. I will continue with the same management, including steroids. 2. Likely bronchitis. Continue with antibiotics and breathing treatment, oxygen. 3. Type 2 diabetes. Continue with pattern of blood sugar and sliding scale insulin. Her blood sugar has been elevated so I have increased the dose of the sliding scale insulin. 4. Hypertension. Continue with same management. 5. Hyperlipidemia. Aware. Continue with pravastatin. 6. History of anxiety. Aware. 7. History of sciatica and right lower extremity pain in the past. Aware. 8. Deep vein thrombosis (DVT) prophylaxis with Lovenox. cc: Mark Noel MD
[2018-05-09] MEDS: LOVENOX SUBQ SCH (17:44)
[2018-05-10] MEDS: DUONEB (A & A) INH SCH ×9 (01:50→22:16)
[2018-05-10] MEDS: NS 1,000 ML IV SCH ×2 (05:18→19:19)
--- NOTE | 2018-05-10 06:22 | Diag Imaging Result Doc PS360 ---
CHEST-PORTABLE - 05/10/2018 INDICATION: dyspnea COMPARISON: 05/08/2018 FINDINGS: The lungs are normally expanded and clear. Heart size and mediastinal contours are normal. No pneumothorax or pleural effusion. IMPRESSION: Negative exam. Electronically signed by Micheal Barron 05/10/2018 6:20 AM
[2018-05-10] MEDS: HUMALOG SUBQ SCH ×4 (06:32→21:09)
[2018-05-10] MEDS: SYMBICORT 80/4.5 MICROGM INHALER INH SCH ×2 (07:47→19:39)
[2018-05-10 08:13] LABS: BASO# 0.02 X1000 (0.0-0.2); BASO% 0.3 % (0.0-0.8); EOS# 0.02 X1000 (0.0-0.7); EOS% 0.3 % (0.0-10.0); HEMATOCRIT 36.1 % (37.0-47.0); HEMOGLOBIN 11.6 g/dL (12.0-16.0); IMM GRAN# 0.09 X1000 (0.0-0.04); IMM GRAN% 1.2 % (0.0-0.5); LYMPH# 3.16 X1000 (1.2-3.4); LYMPH% 41.1 % (20.5-51.1); MCH 30.3 PG (27-31); MCHC 32.1 g/dL (33-37); MCV 94.3 FL (81-99); MONO# 0.51 X1000 (0.11-0.59); MONO% 6.6 % (1.7-9.3); MPV 9.1 FL (7.4-10.4); NEUT# 3.88 X1000 (1.4-6.5); NEUT% 50.5 % (42.2-75.2); PLT 234 X1000 (130-400); RBC 3.83 XMIL (4.2-5.4); RDW 13.9 % (11.5-14.5); WBC 7.68 X1000 (4.8-10.8)
[2018-05-10 08:39] LABS: AGAP 4; BUN 7 mg/dL (8-22); CHLORIDE 106 mmol/L (98-107); COSMO 289; CREATININE 0.6 mg/dL (0.5-0.9); ESTIMATED GFR > 60; GLUCOSE 182 mg/dL (70-104); POTASSIUM 3.6 mmol/L (3.5-5.1); SODIUM 144 mmol/L (136-145); TCO2 34 mmol/L (25-35)
[2018-05-10] MEDS: THEO-24 PO SCH (10:05)
[2018-05-10] MEDS: TUSSIONEX LIQUID PO SCH ×2 (10:05→21:08)
[2018-05-10] MEDS: PRAVACHOL PO SCH (10:06)
[2018-05-10] MEDS: SINGULAIR PO SCH (10:06)
[2018-05-10] MEDS: PRILOSEC PO SCH (10:06)
[2018-05-10] MEDS: JANUVIA PO SCH (10:06)
[2018-05-10] MEDS: NORVASC PO SCH (10:06)
[2018-05-10] MEDS: SOLU-MEDROL IV SCH (10:07)
--- NOTE | 2018-05-10 11:46 | PROGRESS NOTE ---
DATE: 05/10/2018 SUBJECTIVE: This patient is still complaining of shortness of breath but compared with yesterday, she feels better. I will continue with the steroids. She still has end-expiratory wheezing. Cough is better but she is still coughing. OBJECTIVE: Vital Signs: Temperature 98.2 degrees, pulse 92, respiratory rate 15, blood pressure 137/84, oxygen saturation 97% on nasal cannula. HEENT: Head normocephalic. No trauma. PERRLA. Neck: Supple. No JVD. No masses. Central trachea. Chest: Decreased breath sounds globally with prolonged expiratory phase and expiratory wheezing, mild scattered crepitus at the bases. Abdomen: Soft, nontender, nondistended. No hepatosplenomegaly. Extremities: No edema. No clubbing. No cyanosis. Neurological Examination: The patient is alert and oriented x3. No focal deficits. Laboratory: WBCs 7.6, hemoglobin 11.6, hematocrit 36.1, platelets 234,000. Sodium 144, potassium 3.6, chloride 106, bicarbonate 34, BUN 7, creatinine 0.6, glucose 182, calcium 9. ASSESSMENT AND PLAN: 1. Asthma exacerbation with possible bronchitis. I will continue with the same management. She feels better. I do believe this patient can be discharged in the next 48 hours. 2. Likely bronchitis. Continue with antibiotics, breathing treatments, and oxygen. 3. Type 2 diabetes. Continue pattern of blood sugar and sliding scale insulin. Her blood sugar has been elevated due to steroids. 4. Hypertension. Continue with same management. 5. Hyperlipidemia, aware. Continue with pravastatin. 6. History of anxiety, aware. 7. History of sciatica and right lower extremity pain in the past, aware. 8. Deep vein thrombosis prophylaxis with Lovenox. cc: Mark Noel MD
[2018-05-10] MEDS: FLEXERIL PO PRN (11:56)
[2018-05-10] MEDS: LEVAQUIN 750 MG/D5W 750 MG/150 ML IVPB IV SCH (14:45)
[2018-05-10] MEDS: LOVENOX SUBQ SCH (17:32)
[2018-05-11] MEDS: DUONEB (A & A) INH SCH ×8 (00:43→21:53)
[2018-05-11] MEDS: FLEXERIL PO PRN ×2 (04:26→21:19)
[2018-05-11] MEDS: HUMALOG SUBQ SCH ×4 (06:52→21:13)
[2018-05-11 07:08] LABS: BASO# 0.02 X1000 (0.0-0.2); BASO% 0.2 % (0.0-0.8); EOS# 0.01 X1000 (0.0-0.7); EOS% 0.1 % (0.0-10.0); HEMATOCRIT 35.6 % (37.0-47.0); HEMOGLOBIN 11.5 g/dL (12.0-16.0); IMM GRAN% 1.1 % (0.0-0.5); LYMPH# 3.28 X1000 (1.2-3.4); LYMPH% 36.8 % (20.5-51.1); MCH 30.1 PG (27-31); MCHC 32.3 g/dL (33-37); MCV 93.2 FL (81-99); MONO# 0.68 X1000 (0.11-0.59); MONO% 7.6 % (1.7-9.3); MPV 8.9 FL (7.4-10.4); NEUT# 4.83 X1000 (1.4-6.5); NEUT% 54.2 % (42.2-75.2); PLT 220 X1000 (130-400); RBC 3.82 XMIL (4.2-5.4); RDW 13.4 % (11.5-14.5); WBC 8.92 X1000 (4.8-10.8)
[2018-05-11 07:14] LABS: HEMOGLOBIN A1C 8.3 % (4.8-6.0)
[2018-05-11 07:31] LABS: AGAP 9; BUN 8 mg/dL (8-22); CALCIUM 9.1 mg/dL (8.8-10.2); CHLORIDE 105 mmol/L (98-107); COSMO 288; CREATININE 0.7 mg/dL (0.5-0.9); ESTIMATED GFR > 60; GLUCOSE 183 mg/dL (70-104); POTASSIUM 4.2 mmol/L (3.5-5.1); SODIUM 143 mmol/L (136-145); TCO2 29 mmol/L (25-35)
[2018-05-11] MEDS: SYMBICORT 80/4.5 MICROGM INHALER INH SCH ×2 (08:23→19:24)
[2018-05-11] MEDS: TUSSIONEX LIQUID PO SCH ×2 (09:32→21:13)
[2018-05-11] MEDS: PRAVACHOL PO SCH (09:33)
[2018-05-11] MEDS: SOLU-MEDROL IV SCH (09:33)
[2018-05-11] MEDS: JANUVIA PO SCH (09:33)
[2018-05-11] MEDS: NORVASC PO SCH (09:33)
[2018-05-11] MEDS: SINGULAIR PO SCH (09:33)
[2018-05-11] MEDS: PRILOSEC PO SCH (09:33)
[2018-05-11] MEDS: THEO-24 PO SCH (09:34)
[2018-05-11] MEDS: NS 1,000 ML IV SCH (09:34)
[2018-05-11] MEDS: MIRALAX PO SCH ×2 (14:09→21:13)
[2018-05-11] MEDS: LEVAQUIN 750 MG/D5W 750 MG/150 ML IVPB IV SCH (14:38)
--- NOTE | 2018-05-11 15:44 | PROGRESS NOTE ---
DATE: 05/11/2018 SUBJECTIVE: Patient is still complaining of shortness of breath. She is still wheezing, will continue with same management. Patient is constipated. I will start this patient on MiraLAX. OBJECTIVE: Vital Signs: Temperature 97.6 degrees, pulse 91, respiratory rate 18, blood pressure 141/82, oxygen saturation 97 on room air. HEENT: Head normocephalic. No trauma. PERRLA. Neck: Supple. No JVD. No masses. Central trachea. Chest: Decreased breath sounds globally with prolonged expiratory phase and expiratory wheezing, mild scattered crepitus at the bases. Abdomen: Soft, nontender, nondistended. No hepatosplenomegaly. Extremities: No edema, no clubbing, no cyanosis. Neurological: The patient is alert and oriented x3. No focal deficits. LABORATORY: WBC 8.9, hemoglobin 11.5, hematocrit 35.6, platelets 220,000, sodium 143, potassium 4.2, chloride 105, bicarbonate 29, BUN 8, creatinine 0.7, glucose 183. Hemoglobin A1c 8.3, calcium 9.1. ASSESSMENT AND PLAN: 1. Asthma exacerbation with possible bronchitis, I will continue with same management. She feels better but she is still having shortness of breath and wheezing, I do believe this patient can be discharged in the next 48 hours. 2. Likely bronchitis. Continue with antibiotics, breathing treatment and oxygen supplementation. 3. Type 2 diabetes. Continue with pattern of blood sugar and sliding scale insulin, her blood sugar has been elevated due to steroids. 4. Hypertension. Continue with same management. 5. Hyperlipidemia aware. Continue with pravastatin. 6. History of anxiety aware. 7. History of sciatica and right lower extremity pain in the past, aware. 8. Deep vein thrombosis prophylaxis with Lovenox. cc: Mark Noel MD
[2018-05-11] MEDS: LOVENOX SUBQ SCH (18:01)
[2018-05-12] MEDS: DUONEB (A & A) INH SCH ×8 (01:07→22:19)
[2018-05-12] MEDS: HUMALOG SUBQ SCH ×4 (06:50→20:41)
[2018-05-12] MEDS: SYMBICORT 80/4.5 MICROGM INHALER INH SCH ×2 (08:05→19:51)
[2018-05-12 08:13] LABS: AGAP 12; BUN 8 mg/dL (8-22); CALCIUM 9.3 mg/dL (8.8-10.2); CHLORIDE 102 mmol/L (98-107); COSMO 290; CREATININE 0.6 mg/dL (0.5-0.9); ESTIMATED GFR > 60; GLUCOSE 181 mg/dL (70-104); POTASSIUM 3.9 mmol/L (3.5-5.1); SODIUM 144 mmol/L (136-145); TCO2 30 mmol/L (25-35)
[2018-05-12] MEDS: MIRALAX PO SCH ×2 (08:33→20:41)
[2018-05-12] MEDS: SOLU-MEDROL IV SCH (08:34)
[2018-05-12] MEDS: NORVASC PO SCH (08:39)
[2018-05-12] MEDS: TUSSIONEX LIQUID PO SCH ×2 (08:39→20:41)
[2018-05-12] MEDS: SINGULAIR PO SCH (08:39)
[2018-05-12] MEDS: PRILOSEC PO SCH (08:39)
[2018-05-12] MEDS: THEO-24 PO SCH (08:39)
[2018-05-12] MEDS: FLEXERIL PO PRN ×2 (08:39→20:40)
[2018-05-12] MEDS: JANUVIA PO SCH (08:39)
[2018-05-12] MEDS: PRAVACHOL PO SCH (08:39)
[2018-05-12] MEDS: COZAAR PO SCH (11:09)
--- NOTE | 2018-05-12 15:33 | PROGRESS NOTE ---
DATE: 05/12/2018 SUBJECTIVE: The patient is feeling better. She is still having some shortness of breath. She is still wheezing but compared with yesterday, I believe the wheezing is better. She started having bowel movements. I will stop the IV steroids and I will start with p.o. steroids, likely this patient can be discharged tomorrow. OBJECTIVE: Vital Signs: Temperature 98.6 degrees, pulse 80, respiratory rate 18, blood pressure 153/86, oxygen saturation 100% on room air. HEENT: Head normocephalic. No trauma. PERRLA. Neck: Supple. No JVD. No masses. Central trachea. Chest: Decreased breath sounds globally with prolonged expiratory phase and expiratory wheezing. Crepitus at the bases. Abdomen: Soft, nontender, nondistended. No hepatosplenomegaly. Extremities: No edema. No clubbing. No cyanosis. Neurological: The patient is alert and oriented x3. No focal deficits. LABORATORY: Sodium 144, potassium 3.9, chloride 102, bicarbonate 30, BUN 8, creatinine 0.6, glucose 181, calcium 9.3. ASSESSMENT AND PLAN: 1. Asthma exacerbation with bronchitis, continue with the same management. She feels better. I will switch the IV steroids to p.o. steroids. She is still having wheezing but I do believe she can be discharged tomorrow. 2. Likely bronchitis. Continue with antibiotics, breathing treatment, and oxygen supplementation. 3. Type 2 diabetes. Continue pattern of blood sugar and sliding scale insulin. 4. Hypertension. Continue with the same management. 5. Hyperlipidemia, aware. 6. History of hypertension. Continue with the same management. I will add losartan to her medications because the blood pressure is a little bit high. 7. Hyperlipidemia, aware. Continue with pravastatin. 8. History of anxiety, aware. 9. History of sciatica and right lower extremity pain in the past. Aware. 10. Deep vein thrombosis prophylaxis with Lovenox. 11. The patient is doing better. I will try to discharge this patient tomorrow. cc: Mark Noel MD
[2018-05-12] MEDS: LEVAQUIN 750 MG/D5W 750 MG/150 ML IVPB IV SCH (15:50)
[2018-05-12] MEDS: LOVENOX SUBQ SCH (18:08)
[2018-05-13] MEDS: DUONEB (A & A) INH SCH ×4 (01:14→11:12)
[2018-05-13] MEDS: HUMALOG SUBQ SCH ×2 (06:08→11:06)
[2018-05-13 07:20] VITALS: BP 144/89
[2018-05-13] MEDS: SYMBICORT 80/4.5 MICROGM INHALER INH SCH (07:43)
[2018-05-13 08:15] LABS: AGAP 9; BUN 9 mg/dL (8-22); CHLORIDE 100 mmol/L (98-107); COSMO 285; CREATININE 0.6 mg/dL (0.5-0.9); ESTIMATED GFR > 60; GLUCOSE 155 mg/dL (70-104); SODIUM 142 mmol/L (136-145); TCO2 33 mmol/L (25-35)
[2018-05-13] MEDS: MIRALAX PO SCH (08:42)
[2018-05-13] MEDS: THEO-24 PO SCH (08:43)
[2018-05-13] MEDS: FLEXERIL PO PRN (08:43)
[2018-05-13] MEDS: COZAAR PO SCH (08:43)
[2018-05-13] MEDS: NORVASC PO SCH (08:44)
[2018-05-13] MEDS: SINGULAIR PO SCH (08:44)
[2018-05-13] MEDS: TUSSIONEX LIQUID PO SCH (08:44)
[2018-05-13] MEDS: PRILOSEC PO SCH (08:44)
[2018-05-13] MEDS: JANUVIA PO SCH (08:44)
[2018-05-13] MEDS: PRAVACHOL PO SCH (08:44)
[2018-05-13] MEDS ORDERED: PREDNISONE PO SCH (09:00)
--- NOTE | 2018-05-13 11:26 | DISCHARGE SUMMARY ---
ADMISSION DATE: 05/07/2018 DISCHARGE DATE: DISCHARGE DIAGNOSES: 1. Asthma exacerbation with bronchitis. 2. Bronchitis. 3. Type 2 diabetes. 4. Hypertension. 5. Hyperlipidemia. 6. History of anxiety. 7. History of sciatica and right lower extremity pain in the past. HOSPITAL COURSE: A 57-year-old, female with a past medical history of asthma who came to the emergency department and was admitted on 05/07/2018. She also has a history of diabetes, hypertension, hyperlipidemia, anxiety, and sciatica. As per the patient, she was complaining of shortness of breath for a few days that slowly progressed to the point that she was not able to breathe and she was wheezing. She presented to the emergency department. She was admitted. She started receiving steroids, breathing treatments, oxygen supplementation, and then I put her on antibiotics because I felt that this patient had a bronchitis. Her blood sugar has been elevated during this hospitalization because not only for her diabetes but the steroids. The patient has been improving on a daily basis. Today, I feel this patient is much better and she can go home. At the moment of discharge, this patient was tolerating p.o. and ambulating. She was not using oxygen and she was not short of breath. PHYSICAL EXAMINATION: Vital Signs: Temperature 97.8 degrees, pulse 78, respiratory rate 18, blood pressure 144/89, oxygen saturation 97% on room air. HEENT: Head normocephalic. No trauma. PERRLA. Neck: Supple. No JVD. No masses. Central trachea. Chest: Decreased breath sounds globally with prolonged expiratory phase, mild scattered wheezing. Abdomen: Soft, nontender, nondistended. No hepatosplenomegaly. Extremities: No edema. No clubbing. No cyanosis. Neurological Examination: The patient is alert and oriented x3. No focal deficits. LABORATORY DATA: Sodium 142, potassium 4, chloride 100, bicarbonate 33, BUN 9, creatinine 0.6, glucose 155, calcium 9. FOLLOWUP: With her primary care doctor in 1 week. DISCHARGE MEDICATIONS: Januvia 100 mg p.o. daily, Singulair 10 mg p.o. daily, losartan 100 mg p.o. daily, triamterene/hydrochlorothiazide 37.5/25 mg p.o. daily, theophylline 400 mg p.o. daily, pravastatin 10 mg p.o. daily, omeprazole 40 mg p.o. daily, metformin 1000 mg p.o. b.i.d., ipratropium bromide 0.5 mg p.o. 4 times a day as needed, insulin aspart per protocol, albuterol sulfate 2.5 mg inhaler 4 times a day as needed, MiraLAX 17 g p.o. daily as needed for constipation, Medrol Dosepak 4 mg p.o. as directed, levofloxacin 500 mg p.o. daily, Tussionex liquid 5 mL p.o. q.12 hours for 3 more days, Symbicort 80/4.5 mcg inhaler 2 puff inhaler 2 times a day, amlodipine 5 mg p.o. b.i.d. Time discharging this patient was 35 minutes. cc: Mark Noel MD
== END 2018-05-13 13:41 | disposition home or self-care (01) | DRG 203 ==
LOC: ED 08:12 → 3N 08:13 → SUATTDRO 08:13
PROVIDERS: ATTEND Internal Medicine
CPT/HCPCS: 71010; 71045; 80048; 80053; 80061; 82607; 82746; 82805; 82948; 83036; 84439; 84443; 85025; 94640; 94761; 94799; 96361; 96374; 97161; 99285; A9270; J0360; J1650; J1815; J1956; J2930; J7030; J7040; J7050; J7506; J7512; XXXXX

== ENCOUNTER 2018-08-22 10:22 | Inpatient (IN) ==
[2018-08-22] MEDS ORDERED: SOLU-MEDROL IM ONE (10:39)
[2018-08-22] MEDS ORDERED: DUONEB (A & A) INH ONE ×2 (10:39→11:24)
--- NOTE | 2018-08-22 10:51 | PROVIDER DOCUMENTATION ---
This chart was entered by Ilda oMise Scribe, acting as scribe for Essie Mane CRNP. HPI-Respiratory General - General Chief Complaint: Asthma Attack Stated Complaint: ASTHMA SX Time Seen by Provider: 08/22/18 10:29 Source: patient Allergies/Adverse Reactions: Patient Allergies Allergy/AdvReac Type Severity Reaction Status Date / Time ibuprofen [From Advil] Allergy Intermediate SHORTNESS Verified 03/18/18 06:14 OF BREATH naproxen sodium * Allergy Intermediate SHORTNESS Verified 03/18/18 06:14 [From Aleve] OF BREATH morphine Allergy Mild "THE Verified 03/18/18 06:14 ULTIMATE DOOM" NSAIDS (Non-Steroidal Allergy SHORTNESS Verified 03/18/18 06:14 Anti-Inflamma OF BREATH Home Medications: Home Medication List Medication Instructions Recorded Confirmed Last Taken Type Albuterol Sulfate 2.5 mg IH 4XDAY PRN PRN 08/20/16 05/07/18 05/06/18 History Insulin Aspart [Novolog] See Protocol SQ BID 08/20/16 05/07/18 05/06/18 History Ipratropium [place] 0.5 mg PO 4XDAY PRN PRN 08/20/16 05/07/18 05/06/18 History Losartan Potassium 100 mg PO DAILY 08/20/16 05/07/18 03/05/17 08:00 History Metformin HCl 1,000 mg PO BID 08/20/16 05/07/18 05/07/18 15:09 History Omeprazole 40 mg PO DAILY 08/20/16 05/07/18 05/06/18 History Pravastatin Sodium 10 mg PO DAILY 08/20/16 05/07/18 05/06/18 History Theophylline Anhydrous 400 mg PO DAILY 08/20/16 05/07/18 05/06/18 History [Theophylline] Triamterene/Hydrochlorothiazid 37.5 mg PO DAILY 08/20/16 05/07/18 05/06/18 History [Triamterene-Hctz 37.5-25 mg Cp] Montelukast Sodium [Singulair] 10 mg PO DAILY 05/07/18 05/07/18 Unknown History Sitagliptin Phosphate [Januvia] 100 mg PO DAILY 05/07/18 05/07/18 Unknown History Amlodipine [Norvasc] 5 mg PO BID #90 tab 05/13/18 Unknown Rx Budesonide/Formoterol Inhaler 2 puff INH RTBID #1 inhaler 05/13/18 Unknown Rx [Symbicort 80/4.5 Microgm Inhaler] Hydrocodone/Chlorphen Polis 5 ml PO Q12HR #1 udc 05/13/18 Unknown Rx [Tussionex Liquid] Levofloxacin [Levaquin] 500 mg PO DAILY #3 tab 05/13/18 Unknown Rx Methylprednisolone [Medrol Dosepak] 4 mg PO DIRECTED #1 pkg 05/13/18 Unknown Rx Polyethylene Glycol 3350 [Miralax] 17 gm PO DAILY PRN #30 powder, 05/13/18 Unknown Rx packet - History of Present Illness-Resp Nature of Presenting Problem: Patient is a 57 year old female who presents with shortness of breath, product margarita cough w/ yellow sputum, and nasal drainage that has been present for 2 days. Patient states symptoms worsened yesterday. States history of asthma. Reports being seen at Urgent Care prior to arrival and received 2 breathing treatments, Rocephin and a steroid shot. States she was informed at Urgent Care her O2 sat was 87% on room air and referred to ED. Denies fever/chills or CP. Quality of Pain: reports: tightness Severity in ED: reports: moderate Onset/Duration: reports: 2 days ago Timing: reports: still present, getting worse Context: reports: recent URI Cough Quality/Degree: reports: moderate, productive cough (with yellow sputum), sputum Episode Frequency: occasional episodes Current Respiratory Medication Therapy: Initiated see nurses note Modifying Factors: improves with: sitting upright. worse with: exertion, lying down Associated Symptoms: reports: cough, nasal drainage, shortness of breath, wheezing. denies: dizziness, facial pain, fever/chills, lightheadedness, sore throat Similar Symptoms Previously?: Yes Recently seen or treated by another doctor?: Yes Review of Systems - Adult - REVIEW OF SYSTEMS - ADULT ROS:: limited per condition Constitutional: reports: no symptoms reported. denies: chills, fever, fatique Eyes: reports: no symptoms reported Ears, Nose, Mouth & Throat: reports: see HPI, sinus problem (drainage). denies: ear pain, throat pain Cardiovascular: denies: chest pain, palpitations Respiratory: reports: see HPI, cough (productive with yellow sputum), shortness of breath. denies: wheezing Gastrointestinal: denies: abdominal pain, diarrhea, nausea, vomiting Genitourinary: reports: no symptoms reported Musculoskeletal: reports: no symptoms reported Integumentary: reports: no symptoms reported Neurological: denies: dizziness/vertigo, headache/migraines Psychiatric: reports: no symptoms reported Endocrine: reports: no symptoms reported Allergic/Immunologic: reports: asthma All Other Systems: Reviewed and Negative Past History - Adult - PAST MEDICAL HISTORY-ADULT Review of Records: reports: Old Records Reviewed, Nursing Assessment Review, Medications Reviewed, Social history reviewed & non-contributory. Major Childhood Illnesses: reports: denies history Cardiovascular: reports: HTN, hyperlipidemia Respiratory: reports: asthma, COPD Gastrointestinal: reports: GERD Obstetrical/Gynecological: reports: denies history Genitourinary: reports: denies history Musculoskeletal: reports: arthritis, chronic pain Neurological: reports: denies history Psychiatric: reports: anxiety, depression Endocrine/Immune: reports: Diabetes Other Conditions: reports: denies history - PRIOR SURGERIES/PROCEDURES Surgical/Procedure History: reports: reviewed, not pertinent, other (hemrrhoidectomy) - IMMUNIZATION STATUS Childhood Immunizations: See Nurse Assessment Flu Vaccine: See Nurse Assessment - FAMILY HISTORY Family History: reviewed, not pertinent - SOCIAL HISTORY Smoking: denies Substance Use: alcohol Alcohol Use Frequency: rarely Physical Exam-General - PHYSICAL EXAM-ADULT Initial Vital Signs Reviewed: Yes - CONSTITUTIONAL General Appearance: alert, mild distress. negative: lethargic, slow to respond - EYES Eyes: PERRL/EOMI, pink conjunctivae - HEAD, EARS, NOSE, MOUTH & THROAT HENMT: normocephalic/atraumatic, moist mucous membranes. negative: angioedema, hearing deficit - NECK Neck: non-tender, full range of motion, supple, normal inspection - RESPIRATORY Respiratory: chest non-tender, no pleuratic chest pain, no accessory muscle use, respiratory distress (mild), wheezing (bilateral). negative: crackles, rales, rhonchi, stridor, retractions, splinting - CARDIOVASCULAR Cardiovascular: tachycardia (107). negative: systolic murmur - GASTROINTESTINAL (ABDOMEN) Abdominal Exam: normal bowel sounds, non tender, soft. negative: guarding, rebound - LYMPHATIC Lymphatic: no adenopathy - MUSCULOSKELETAL Back Exam: normal inspection, no CVA tenderness, no vertebral tenderness Extremity: normal range of motion, non-tender, normal gait, normal inspection. negative: deformity, erythema, swelling - SKIN Integumentary: normal color, warm/dry. negative: cyanosis, ecchymosis, erythema, jaundice - NEUROLOGIC Neurologic: grossly normal. negative: aphasia - PSYCHIATRIC Psych/Mental Status: normal mood/affect, normal thought content, normal thought process, oriented x 3. negative: anxious Progress - PLAN OF CARE/RESULTS Progress/Plan/Lab Results: Vital Signs - 8 hr 08/22/18 10:25 08/22/18 10:37 08/22/18 10:50 Temperature 98.0 F Pulse Rate 107 H 110 H Respiratory Rate 20 23 Blood Pressure 129/82 123/92 O2 Sat by Pulse Oximetry 94 L 93 L 92 L 08/22/18 11:07 08/22/18 11:34 08/22/18 11:53 Temperature Pulse Rate 98 H 108 H Respiratory Rate 14 17 Blood Pressure 115/78 O2 Sat by Pulse Oximetry 93 L 98 95 08/22/18 12:01 Temperature Pulse Rate 102 H Respiratory Rate 20 Blood Pressure 138/86 O2 Sat by Pulse Oximetry 96 Laboratory Results - last 24 hr 08/22/18 08/22/18 11:30 11:30 WBC 6.87 RBC 4.29 Hgb 13.2 Hct 39.7 MCV 92.5 MCH 30.8 MCHC 33.2 RDW Std Deviation 13.1 Plt Count 218 MPV 9.4 Immature Gran % (Auto) 0.4 Neut % (Auto) 87.5 H Lymph % (Auto) 8.4 L [place] % (Auto) 2.8 Eos % (Auto) 0.6 Baso % (Auto) 0.3 Immature Gran # (Auto) 0.03 Neut # (Auto) 6.01 Lymph # (Auto) 0.58 L [place] # (Auto) 0.19 Eos # (Auto) 0.04 Baso # (Auto) 0.02 Sodium 136 Potassium 3.3 L Chloride 95 L Carbon Dioxide 24 L Anion Gap 17 BUN 4 L Creatinine 0.6 Estimated GFR/1.73 m2 > 60 BUN/Creatinine Ratio 7 Glucose 296 H Calculated Osmolality 280 Calcium 9.3 Total Bilirubin 0.20 AST 14 ALT 17 Alkaline Phosphatase 76 Total Protein 7.0 Albumin 4.2 Globulin 2.8 Albumin/Globulin Ratio 1.5 Orders Category Date Time Status Cardiac Monitoring DIRECTED Care 08/22/18 10:46 Active Nursing- Obtain EKG ONCE Care 08/22/18 10:38 Active Oxygen Therapy- ED Nursing DIRECTED Care 08/22/18 10:38 Active Saline Loc NOW Care 08/22/18 12:20 Active CHEST-2 VIEWS [RAD] Stat Exams 08/22/18 10:38 Completed ABG [RESP] Routine Lab 08/22/18 12:20 Ordered BLOOD CULTURE [BLDCUL] Stat Lab 08/22/18 12:24 Uncollected CBC WITH ELECTRONIC DIFF [HEME] Stat Lab 08/22/18 11:30 Completed COMPREHENSIVE METABOLIC PANEL [CHEM] Stat Lab 08/22/18 11:30 Completed LACTATE, PLASMA [CHEM] Stat Lab 08/22/18 12:25 Uncollected URINALYSIS W/POSS RFLX CULT [URINALYSIS] Stat Lab 08/22/18 12:27 Uncollected Albuterol 2.5MG/Ipratrop 0.5MG [Duoneb (A & A)] Med 08/22/18 10:39 Discontinued 3 ml INH NOW ONE Albuterol 2.5MG/Ipratrop 0.5MG [Duoneb (A & A)] Med 08/22/18 11:24 Discontinued 3 ml INH NOW ONE Azithromycin 500 mg/Ns [Zithromax 500 mg/Ns] Med 08/22/18 12:24 Active 500 mg in 250 ml IV NOW Methylprednisolone Sod Succ [Solu-Medrol] Med 08/22/18 10:39 Discontinued 125 mg IM NOW ONE Potassium Chloride E.r. [Klor-Con] Med 08/22/18 12:19 Discontinued 40 meq PO NOW ONE Aerosol Treatments Routine Oth 08/22/18 10:39 Completed Aerosol Treatments Routine Oth 08/22/18 11:24 Completed Aerosol Treatments Stat Oth 08/22/18 10:39 Completed Aerosol Treatments Stat Oth 08/22/18 11:24 Completed EKG [EKG] Stat Ther 08/22/18 10:38 Draft Lab results, imaging results, an plan of care discussed with patient who verbalizes understanding. Patient given 2 duo-nebs in ED and 2 nebs at urgent care for total of 4, as well as given IM Solu-Medrol. Patient still wheezing and requiring supplemental O2. No evidence of pneumonia on CXR. Will draw ABG and admit patient. Result Diagrams: 08/22/18 11:30 08/22/18 11:30 - REASSESSMENT Reassessment #1 Time Reassessed: 11:15 Status: unchanged (patient wheezing all lung lopez; O2 sat 95%) Reassessment #2 Time Reassessed: 11:55 Status: worsening (patient still wheezing and O2 sat 91% on RA. 2L NC applied with sats 98%) - EKG 1 Time of EKG reading by physician:: 11:20 EKG Read and Signed by:: Tramaine Jimenes EKG Interpretation (*Must complete 3 of following elements*): Abnormal Rate: 98 Rhythm: normal sinus rhythm [place]: normal [place] Interval: normal Comments: nonspecific T wave abnormality. - XRAY 1 XRAY: Bilateral XRAY Study: Chest Impression: See EMR Report ([facility] [address] , [address], [place] [address] Department of Imaging Patient: MELANIE DA SILVAADM Date: 08/22/18MR#: [id number] : 1960DM Status: REG ERAt#: [id number] Age/Sex: 57/FRoom/Bed: Loc: ED Ordering Physician: Essie Mane Family Physician: Luke Cordoba MD Reason for Procedure: SOB/as thma exacerbation ___ Signed EXAM: CHEST-2 VIEWS 08/22/2018 HISTORY: SOB/asthma exacerbation TECHNIQUE: PA and lateral chest COMMENT: The inspiration is better than on 05/10/2018. Otherwise the appearance of the chest has not changed significantly. IMPRESSION: Stable chest. Electronically signed by Ace Olivarez 08/22/2018 11:11 AM 08/22/18 1111 Interpreting Physician: Ace Olivarez MD Dictated Date/Time: 08/22/18 1110 cc: Essie Mane; Luke Cordoba MD) - CONSULTS/PCP/HOSPITALIST Notification #1 *Consult/PCP/Hospitalist*: Cash Agee (Pierre) Time Discussed: 12:35 Reason/Comments: Status asthmaticus Consult Disposition: Admit Departure - Departure Date of Disposition Decision: 08/22/18 Time of Disposition Decision: 12:37 DIAGNOSIS: Hx of type 2 diabetes mellitus Status asthmaticus Qualifiers: Asthma severity: moderate Asthma persistence: unspecified Qualified Code(s): J45.902 - Unspecified asthma with status asthmaticus Disposition: ADMITTED INPATIENT 09 Certified Medical Emergency: Emergent Condition: Stable Referrals and Follow-Ups: Luke Cordoba MD [Primary Care Provider] - - Critical Care Note This patient required my direct & personal management of CC.: No Attestation - Physician/ ELDA Attestation Patient care was provided by Advanced Practice Provider:: Yes Advanced Practice Provider:: Essie Mane Advanced Practice Provider documentation review:: The Mid-level provider documentation, treatment plan and medical decision making was reviewed by the physician who agrees with all treatment and medical decision making by the MLP. The physician spent face to face time with patient:: No Advanced Practice Provider documentation review:: Supervising physician onsite and consulted in the evaluation and care of this patient. The physician did not have a face to face encounter with the patient. This chart was documented by the indicated scribe, (Ilda Moise Scribe) and accurately reflects the services I performed and decisions made by me, Essie Mane CRNP, as attested by the provider's signature.
--- NOTE | 2018-08-22 11:13 | Diag Imaging Result Doc PS360 ---
EXAM: CHEST-2 VIEWS 08/22/2018 HISTORY: SOB/asthma exacerbation TECHNIQUE: PA and lateral chest COMMENT: The inspiration is better than on 05/10/2018. Otherwise the appearance of the chest has not changed significantly. IMPRESSION: Stable chest. Electronically signed by Ace Olivarez 08/22/2018 11:11 AM
[2018-08-22 11:57] LABS: BASO# 0.02 X1000 (0.0-0.2); BASO% 0.3 % (0.0-0.8); EOS# 0.04 X1000 (0.0-0.7); EOS% 0.6 % (0.0-10.0); HEMATOCRIT 39.7 % (37.0-47.0); HEMOGLOBIN 13.2 g/dL (12.0-16.0); IMM GRAN# 0.03 X1000 (0.0-0.04); IMM GRAN% 0.4 % (0.0-0.5); LYMPH# 0.58 X1000 (1.2-3.4); LYMPH% 8.4 % (20.5-51.1); MCH 30.8 PG (27-31); MCHC 33.2 g/dL (33-37); MCV 92.5 FL (81-99); MONO# 0.19 X1000 (0.11-0.59); MONO% 2.8 % (1.7-9.3); MPV 9.4 FL (7.4-10.4); NEUT# 6.01 X1000 (1.4-6.5); NEUT% 87.5 % (42.2-75.2); PLT 218 X1000 (130-400); RBC 4.29 XMIL (4.2-5.4); RDW 13.1 % (11.5-14.5); WBC 6.87 X1000 (4.8-10.8)
[2018-08-22 12:17] LABS: AGAP 17; ALB/GLOB RATIO 1.5; ALBUMIN 4.2 g/dL (3.5-5.0); ALKALINE PHOSPHATASE 76 U/L (32-104); BUN 4 mg/dL (8-22); CALCIUM 9.3 mg/dL (8.8-10.2); CHLORIDE 95 mmol/L (98-107); COSMO 280; CREATININE 0.6 mg/dL (0.5-0.9); ESTIMATED GFR > 60; GLUCOSE 296 mg/dL (70-104); GOT 14 U/L (10-30); GPT 17 U/L (10-36); POTASSIUM 3.3 mmol/L (3.5-5.1); SODIUM 136 mmol/L (136-145); TCO2 24 mmol/L (25-35)
[2018-08-22] MEDS ORDERED: KLOR-CON PO ONE (12:19)
[2018-08-22] MEDS ORDERED: ZITHROMAX 500 MG/NS 500 MG/250 ML IVPB IV ONE (12:24)
--- NOTE | 2018-08-22 12:26 | EKG Report ---
Test Performed on : 08/22/2018 11:20:37 AM Test Reason : SOB Blood Pressure : / mmHG Vent. Rate : 098 BPM Atrial Rate : 098 BPM P-R Int : 138 ms QRS Dur : 070 ms QT Int : 356 ms P-R-T Axes : 072 056 041 degrees QTc Int : 454 ms Normal sinus rhythm. Nonspecific T wave abnormality Abnormal ECG When compared with ECG of 20-AUG-2016 06:45, Vent. rate has decreased BY 55 BPM Unconfirmed Result
[2018-08-22 12:36] LABS: ALLEN TEST NO; BE -0.5 mmoll (-3.0-3.0); BLOOD TYPE ARTERIAL; HCO3-(ACT) 24.4 mmoll (20.0-26.0); METHB 1.3 % (0.0-1.5); O2(CT) 18.3 mL/dL (15.0-23.0); O2HB 94.1 % (95.0-99.0); PCO2(98.6) 39 mmHg (35-45); PO2(98.6) 79 mmHg (60-100); SAMPLE BLOOD; SAO2 97.1 % (95.0-100.0); THB 13.8 g/dL (11.5-17.4)
[2018-08-22 12:39] LABS: MODALITY CANNULA
[2018-08-22] MEDS ORDERED: NS 1,000 ML IV ONE ×2 (12:39→12:40)
[2018-08-22] MEDS ORDERED: NS 750 ML IV ONE (12:41)
--- NOTE | 2018-08-22 13:28 | HISTORY AND PHYSICAL ---
HISTORY OF PRESENT ILLNESS: This is a 57-year-old, -[place] female with a history of asthma since she has been a child, was admitted this last April. Has a couple admissions this year for asthma attacks. She reports thick secretions and yellowish phlegm, and harder to breathe. She reports that she does have all her inhalers including a steroid inhaler. Denies any fever or chills. No pleuritic pain. No hemoptysis. No chest pain. No increased pedal edema, orthopnea, or paroxysmal nocturnal dyspnea. PAST MEDICAL HISTORY: 1. History of sciatica. 2. Long history of asthma. 3. Diabetes mellitus type 2. 4. Hypertension. 5. Hyperlipidemia. 6. Anxiety. 7. Sciatica with right lower extremity pain in the past. PAST SURGICAL HISTORY: Hemorrhoidectomy. SOCIAL HISTORY: Quit smoking in 2007. Denies alcohol or illicit drugs. She lives alone. ALLERGIES: Morphine, nonsteroidal anti-inflammatories which worsen her asthmatic attacks. REVIEW OF SYSTEMS: General: No weight gain or loss. No fever or chills. HEENT: Unremarkable. No change in vision or hearing acuity. No neck pain. No cervical adenopathy appreciated. No sore throat or oropharyngeal lesions. She has had postnasal drainage. Respiratory: Increased wheezing, increased cough, and thick sputum. Cardiovascular: No chest pain or tachy palpitations. Gastrointestinal and Genitourinary: No gross hematuria or dysuria. Musculoskeletal and Neurologic: No significant complaints. Endocrinologic and Hemologic: No significant history. PHYSICAL EXAMINATION: VITAL SIGNS: In the emergency room, temperature 98.0 degrees, pulse 100, respirations 20, blood pressure 130/86. HEENT: Pupils are equal and round. LUNGS: Clear in all lung lopez. At the present time, she does have end-expiratory wheezing and she has prolonged expiratory phase about 1.3 to 1 to inspiratory phase. ABDOMEN: Soft. CARDIOVASCULAR EXAMINATION: Regular rhythm and rate without murmur or S3. No distended neck veins. No pedal edema. Carotid, radial, and femoral pulses 2+ and symmetrical. LABORATORY DATA: White count 6870, hematocrit is 39, platelet count 218,000. Sodium 136, potassium 3.3, chloride 95, BUN 4, creatinine 0.6, blood sugar 296, calcium 9.3, albumin 4.2. Urinalysis, pH is 7.40, pCO2 of 39, PO2 of 79. This was on 2 L per nasal cannula or 28%. Her chest x-ray was stable. No sign of infiltrates. ASSESSMENT AND PLAN: 1. Asthmatic attack. Suspect some postnasal drainage with bronchial irritation. We are going to put her on Solu-Medrol. We are going to put her on a steroid inhaler, give her DuoNebs every 4 hours while awake and then every 2 hours as needed. She is already on Symbicort. We will continue that 2 puffs twice a day. We will give her Solu-Medrol at 60 mg intravenously every 8 hours. Continue ipratropium bromide 0.5 mg 4 times a day as needed and supplementary oxygen. 2. Diabetes mellitus type 2. We will check pattern sugars. Get sliding scale. Continue metformin. 3. History of gastroesophageal reflux. Continue the omeprazole. 4. History of constipation. Continue her MiraLAX. We will continue her diabetic medication. She is on Januvia 100 mg a day. She does take theophylline 400 mg by mouth daily, which we will continue, and we will continue blood pressure medicines. 5. Hypertension. Continue to watch blood pressure. Continue current medications. We will add guaifenesin ER 1200 mg twice a day. cc: Preet Jay MD
[2018-08-22 14:51] LABS: URINE SOURCE CLEAN CATCH
[2018-08-22 15:04] LABS: UR EPITHELIAL CELLS <10 /HPF (<10); URINE BACTERIA NEGATIVE /HPF; URINE RBC <10 /HPF (<10); URINE WBC <10 /HPF (<10)
[2018-08-22 15:05] LABS: BILIRUBIN URINE NEGATIVE (NEGATIVE); BLOOD URINE NEGATIVE (NEGATIVE); COLOR STRAW; GLUCOSE URINE 1000 mg/dL (NEGATIVE); KETONE URINE TRACE mg/dL (NEGATIVE); LEUKOCYTES URINE NEGATIVE (NEGATIVE); NITRITE URINE NEGATIVE (NEGATIVE); PROTEIN URINE NEGATIVE (NEGATIVE); TURBIDITY URINE CLEAR (CLEAR); UROBILINOGEN URINE NORMAL (NORMAL)
[2018-08-22] MEDS ORDERED: DUONEB (A & A) INH PRN (15:08)
[2018-08-22] MEDS ORDERED: ZOFRAN IV PRN (15:08)
[2018-08-22] MEDS: DUONEB (A & A) INH SCH ×3 (15:25→23:25)
[2018-08-22] MEDS: NS 1,000 ML IV SCH (17:01)
[2018-08-22] MEDS: ROCEPHIN 1 GM in NS 50 ML IV SCH (17:09)
[2018-08-22] MEDS: SOLU-MEDROL IV SCH ×3 (17:10→23:15)
[2018-08-22] MEDS: MUCINEX PO SCH ×3 (17:11→22:15)
[2018-08-22] MEDS: HUMALOG SUBQ SCH ×3 (17:16→22:00)
[2018-08-22] MEDS: NORVASC PO SCH ×2 (20:39→22:15)
[2018-08-23] MEDS: DUONEB (A & A) INH SCH ×6 (03:15→23:22)
[2018-08-23] MEDS: TYLENOL PO PRN ×3 (04:13→21:02)
[2018-08-23] MEDS: NS 1,000 ML IV SCH ×2 (04:17→14:34)
[2018-08-23] MEDS: HUMALOG SUBQ SCH ×4 (06:16→20:55)
--- NOTE | 2018-08-23 07:13 | Diag Imaging Result Doc PS360 ---
EXAM: CHEST-PORTABLE 08/23/2018 HISTORY: short of breath TECHNIQUE: AP portable at 0518 COMMENT: The inspiration is less optimal than on 08/22/2018. Otherwise are has been no significant change. IMPRESSION: Stable chest. Electronically signed by Ace Olivarez 08/23/2018 7:10 AM
[2018-08-23 07:34] LABS: BASO# 0.01 X1000 (0.0-0.2); BASO% 0.2 % (0.0-0.8); HEMATOCRIT 36.6 % (37.0-47.0); HEMOGLOBIN 12.4 g/dL (12.0-16.0); IMM GRAN# 0.03 X1000 (0.0-0.04); IMM GRAN% 0.5 % (0.0-0.5); LYMPH# 0.96 X1000 (1.2-3.4); LYMPH% 16.2 % (20.5-51.1); MCH 31.2 PG (27-31); MCHC 33.9 g/dL (33-37); MONO# 0.44 X1000 (0.11-0.59); MONO% 7.4 % (1.7-9.3); MPV 9.1 FL (7.4-10.4); NEUT# 4.48 X1000 (1.4-6.5); NEUT% 75.7 % (42.2-75.2); PLT 213 X1000 (130-400); RBC 3.98 XMIL (4.2-5.4); RDW 12.8 % (11.5-14.5); WBC 5.92 X1000 (4.8-10.8)
[2018-08-23 08:27] LABS: AGAP 15; ALB/GLOB RATIO 1.5; ALBUMIN 4.1 g/dL (3.5-5.0); ALKALINE PHOSPHATASE 70 U/L (32-104); BUN 8 mg/dL (8-22); CALCIUM 8.7 mg/dL (8.8-10.2); CHLORIDE 101 mmol/L (98-107); COSMO 284; CREATININE 0.5 mg/dL (0.5-0.9); ESTIMATED GFR > 60; GLUCOSE 239 mg/dL (70-104); GOT 13 U/L (10-30); GPT 15 U/L (10-36); POTASSIUM 3.2 mmol/L (3.5-5.1); SODIUM 139 mmol/L (136-145); TCO2 23 mmol/L (25-35); TOTAL BILIRUBIN < 0.15 mg/dL (0.20-1.00); TOTAL PROTEIN 6.9 g/dL (6.3-8.3)
[2018-08-23] MEDS: SOLU-MEDROL IV SCH ×2 (09:00→16:32)
[2018-08-23 09:26] LABS: FREE T4 1.11 ng/dL (0.93-1.70); TSH 0.38 uIUmL (0.27-4.20)
[2018-08-23] MEDS: COZAAR PO SCH (10:30)
[2018-08-23] MEDS: THEO-24 PO SCH (10:30)
[2018-08-23] MEDS: SINGULAIR PO SCH (10:31)
[2018-08-23] MEDS: PRILOSEC PO SCH (10:32)
[2018-08-23] MEDS: GLUCOPHAGE PO SCH ×2 (10:32→16:46)
[2018-08-23] MEDS: DYAZIDE PO SCH (10:33)
[2018-08-23] MEDS: JANUVIA PO SCH (10:33)
[2018-08-23] MEDS: MUCINEX PO SCH (12:26)
[2018-08-23] MEDS: TESSALON PO PRN ×2 (14:33→21:02)
[2018-08-23] MEDS: ROCEPHIN 1 GM in NS 50 ML IV SCH (16:35)
--- NOTE | 2018-08-23 17:08 | PROGRESS NOTE ---
DATE: 08/23/2018 SUBJECTIVE: She is breathing better, less wheezing, but still has some tightness. OBJECTIVE: Vital Signs: Temperature 97.5, pulse 96, respirations 20, blood pressure 132/82. HEENT: Pupils are equal and round. Lungs: Clear in all lung lopez. Neck: No distended neck veins. Abdomen: Soft. Skin: Warm and dry. Urine Output: Has been 2400 mL yesterday. LABORATORY DATA: Blood sugar is running a little high, above 240, but she is on Solu-Medrol. Chest x-ray repeated today: Stable chest, no infiltrate. ASSESSMENT AND PLAN: 1. Asthma, moderate to severe. She is on a steroid inhaler, and she has a little bit of acute bronchitis and postnasal drainage. Seems to be doing better. Continue present therapy. 2. Review of her orders: I do not see any changes. cc: Preet Jay MD
[2018-08-23] MEDS: PRAVACHOL PO SCH (20:55)
[2018-08-24] MEDS: SOLU-MEDROL IV SCH ×3 (01:17→16:38)
[2018-08-24] MEDS: NS 1,000 ML IV SCH ×2 (03:11→14:25)
[2018-08-24] MEDS: DUONEB (A & A) INH SCH ×5 (03:46→18:35)
[2018-08-24] MEDS: TESSALON PO PRN ×3 (03:48→19:56)
[2018-08-24] MEDS: PRILOSEC PO SCH (06:30)
[2018-08-24] MEDS: HUMALOG SUBQ SCH ×4 (06:37→20:03)
[2018-08-24] MEDS: COZAAR PO SCH (08:38)
[2018-08-24] MEDS: SINGULAIR PO SCH (08:38)
[2018-08-24] MEDS: DYAZIDE PO SCH (08:38)
[2018-08-24] MEDS: JANUVIA PO SCH (08:38)
[2018-08-24] MEDS: GLUCOPHAGE PO SCH ×2 (08:38→16:39)
[2018-08-24] MEDS: THEO-24 PO SCH (08:38)
[2018-08-24] MEDS: TYLENOL PO PRN ×2 (08:45→14:26)
[2018-08-24] MEDS: ROCEPHIN 1 GM in NS 50 ML IV SCH (14:25)
[2018-08-24] MEDS: PRAVACHOL PO SCH (21:04)
--- NOTE | 2018-08-24 21:20 | PROGRESS NOTE ---
DATE: 08/24/2018 She states she is breathing better and still has thick mucus. Is not where she needs to be at baseline. Continue breathing treatments, Solu-Medrol, and we will see if she is ready for discharge tomorrow. I think she is improving. cc: Preet Jay MD
[2018-08-25] MEDS: SOLU-MEDROL IV SCH ×3 (00:45→17:06)
[2018-08-25] MEDS: DUONEB (A & A) INH SCH ×7 (03:40→23:40)
[2018-08-25] MEDS: HUMALOG SUBQ SCH ×4 (06:14→22:01)
[2018-08-25] MEDS: TYLENOL PO PRN (06:18)
[2018-08-25] MEDS: TESSALON PO PRN ×3 (06:18→22:06)
[2018-08-25] MEDS: NS 1,000 ML IV SCH ×2 (07:56→13:58)
[2018-08-25] MEDS: PRILOSEC PO SCH (07:57)
[2018-08-25] MEDS: THEO-24 PO SCH (09:58)
[2018-08-25] MEDS: GLUCOPHAGE PO SCH ×2 (09:58→17:06)
[2018-08-25] MEDS: JANUVIA PO SCH (09:58)
[2018-08-25] MEDS: COZAAR PO SCH (09:58)
[2018-08-25] MEDS: SINGULAIR PO SCH (09:58)
[2018-08-25] MEDS: DYAZIDE PO SCH (10:00)
[2018-08-25] MEDS: SYMBICORT 160/4.5 MICROGM INHALER INH SCH ×2 (11:15→20:02)
--- NOTE | 2018-08-25 11:46 | PROGRESS NOTE ---
DATE: 08/25/2018 SUBJECTIVE: The patient presented with asthma and bronchospasm. She is much better but still not quite where she needs to be. Sugars have been running high because she is on Solu-Medrol. OBJECTIVE: Vitals: Temperature 97.4 degrees, pulse 75, respirations 20, blood pressure 167/85. HEENT: Pupils are equal and round. Lungs: Lungs are clear in all lung lopez, anterior, lateral, and posterior. Cardiovascular: Regular rhythm rate, without murmur. S3. DIAGNOSTIC DATA: Blood sugars 315, 341, 327. ASSESSMENT: 1. Asthma, improved. She has moderate to severe asthma. She is on a steroid inhaler. We will be able to cut down on the Solu-Medrol. Hopefully, she can go home tomorrow. 2. Diabetes mellitus, type 2. 3. Obesity. 4. History of hyperlipidemia. 5. History of anxiety. 6. History of sciatica pain in her back. PLAN: We will cut the Solu-Medrol down to 20 mg q.8h., and continue ceftriaxone 1 g daily for treating her for acute bronchitis as well. Hopefully, she can go home tomorrow. She is on DuoNeb right now, and she takes theophylline, and I want her on a steroid inhaler so we will put her on some Symbicort at 2 puffs twice a day. cc: Preet Jay MD
[2018-08-25] MEDS: ROCEPHIN 1 GM in NS 50 ML IV SCH (16:34)
[2018-08-25] MEDS: PRAVACHOL PO SCH (22:01)
[2018-08-26] MEDS: NS 1,000 ML IV SCH ×2 (01:00→02:23)
[2018-08-26] MEDS: SOLU-MEDROL IV SCH ×2 (02:23→09:44)
[2018-08-26] MEDS: DUONEB (A & A) INH SCH ×3 (03:40→10:55)
[2018-08-26] MEDS: HUMALOG SUBQ SCH ×2 (06:53→11:37)
[2018-08-26] MEDS: PRILOSEC PO SCH (06:53)
[2018-08-26] MEDS: TESSALON PO PRN (06:57)
[2018-08-26 08:02] VITALS: BP 195/87
[2018-08-26] MEDS: SYMBICORT 160/4.5 MICROGM INHALER INH SCH (09:13)
[2018-08-26] MEDS: COZAAR PO SCH (09:43)
[2018-08-26] MEDS: JANUVIA PO SCH (09:43)
[2018-08-26] MEDS: SINGULAIR PO SCH (09:43)
[2018-08-26] MEDS: DYAZIDE PO SCH (09:43)
[2018-08-26] MEDS: GLUCOPHAGE PO SCH (09:43)
[2018-08-26] MEDS: THEO-24 PO SCH (09:44)
--- NOTE | 2018-08-26 10:25 | DISCHARGE SUMMARY ---
ADMISSION DATE: 08/22/2018 DISCHARGE DATE: HISTORY: This is a 57-year-old followed by Dr. Luke Cordoba. An female with history of asthma since she was a child. Admitted last April, so she has a couple of admissions a year for asthma attacks and status asthmaticus. She has thick secretions, yellow phlegm and a lot of wheezing. She is very short of breath even at rest. PAST MEDICAL HISTORY: 1. History of sciatica. 2. Long history of asthma. 3. History of diabetes mellitus type 2. 4. Hypertension. 5. Hyperlipidemia. 6. Anxiety. 7. Sciatica with right lower extremity pain. HOSPITAL COURSE: So, admitted with asthma, started on Solu-Medrol. I did cover for acute bronchitis as well with Rocephin and gave her some guaifenesin, some Tessalon Perles, DuoNebs and a steroid inhaler. She showed steady improvement, felt she was ready to go home on 08/26/2018. Other medical problems of diabetes mellitus type 2. Sugars went up a little bit with the steroids but overall did well. Gastroesophageal reflux history. She is on omeprazole. Constipation, bowels wee moving well. She is on her usual bowel regimen. I am going to discharge her home. I will put her on a Medrol Dosepak. I gave her the rest of her inhaler, which was Symbicort, and I gave her prescription for that. I want her to talk to her primary care physician and see if she can find a steroid inhaler she can afford. She is on Glucophage 1000 mg twice a day, Singulair 10 mg a day, Prilosec 40 mg a day, Januvia 100 mg a day, Pravachol 10 mg a day, theophylline, which is Diogo-24 400 mg a day, and Dyazide once a day. She will follow up with the primary care physician. cc: Preet Jay MD
== END 2018-08-26 13:47 | disposition home or self-care (01) | DRG 202 ==
LOC: ED 10:22 → 3N 10:23
PROVIDERS: ATTEND Emergency Medicine
CPT/HCPCS: 71010; 71020; 71045; 71046; 80053; 81001; 82607; 82746; 82805; 82948; 83605; 84439; 84443; 85025; 87040; 93005; 94640; 94760; 94761; 94799; 96361; 96365; 96372; 99285; A9270; J0456; J0696; J1815; J2920; J2930; J7030; XXXXX

== ENCOUNTER 2018-12-09 05:26 | Inpatient (IN) ==
[2018-12-09] MEDS ORDERED: PULMICORT INH ONE (05:52)
[2018-12-09] MEDS ORDERED: SOLU-MEDROL IV ONE (05:52)
[2018-12-09] MEDS ORDERED: DUONEB (A & A) INH ONE (05:52)
--- NOTE | 2018-12-09 06:14 | PROVIDER DOCUMENTATION ---
HPI-Respiratory General - General Chief Complaint: Shortness of Breath Stated Complaint: COUGH, ASTHMA Time Seen by Provider: 12/09/18 05:51 Allergies/Adverse Reactions: Patient Allergies Allergy/AdvReac Type Severity Reaction Status Date / Time ibuprofen [From Advil] Allergy Intermediate SHORTNESS Verified 12/09/18 05:37 OF BREATH naproxen sodium * Allergy Intermediate SHORTNESS Verified 12/09/18 05:37 [From Aleve] OF BREATH morphine Allergy Mild "THE Verified 12/09/18 05:37 ULTIMATE DOOM" NSAIDS (Non-Steroidal Allergy SHORTNESS Verified 12/09/18 05:37 Anti-Inflamma OF BREATH Home Medications: Home Medication List Medication Instructions Recorded Confirmed Last Taken Type Albuterol Sulfate 2.5 mg IH 4XDAY PRN PRN 08/20/16 12/09/18 05/06/18 History Ipratropium [place] 0.5 mg PO 4XDAY PRN PRN 08/20/16 12/09/18 05/06/18 History Losartan Potassium 100 mg PO DAILY 08/20/16 12/09/18 08/22/18 09:00 History Metformin HCl 1,000 mg PO BID 08/20/16 12/09/18 08/22/18 08:00 History Omeprazole 40 mg PO DAILY 08/20/16 12/09/18 08/22/18 09:00 History Pravastatin Sodium 10 mg PO DAILY 08/20/16 12/09/18 08/22/18 09:00 History Theophylline Anhydrous 400 mg PO DAILY 08/20/16 12/09/18 08/22/18 09:00 History [Theophylline] Triamterene/Hydrochlorothiazid 37.5 mg PO DAILY 08/20/16 12/09/18 08/22/18 History [Triamterene-Hctz 37.5-25 mg Cp] Montelukast Sodium [Singulair] 10 mg PO DAILY 05/07/18 12/09/18 08/22/18 09:00 History Sitagliptin Phosphate [Januvia] 100 mg PO DAILY 08/22/18 12/09/18 08/22/18 09:00 History Budesonide/Formoterol Inhaler 2 puff INH RTBID 30 Days #1 inhaler 08/26/18 12/09/18 Unknown Rx [Symbicort 160/4.5 Microgm Inhaler] - History of Present Illness-Resp Nature of Presenting Problem: Presents to the with complaints of SOB, wheezing and cough. She states that this started yesterday when she was buring her "auntie". She states that she has been trying to use breathing treatments [id number] but they have not been helping. She endorses a cough with whitish sputum but denies any fevers or chills. She is a previous smoker but does have family that are smokers. She denies any chest pain. Review of Systems - Adult - REVIEW OF SYSTEMS - ADULT Constitutional: reports: see HPI Eyes: reports: no symptoms reported Ears, Nose, Mouth & Throat: reports: no symptoms reported Cardiovascular: reports: no symptoms reported, see HPI Respiratory: reports: cough, dyspnea on exertion, shortness of breath, wheezing Gastrointestinal: reports: no symptoms reported Genitourinary: reports: no symptoms reported Musculoskeletal: reports: no symptoms reported Integumentary: reports: no symptoms reported Neurological: reports: no symptoms reported Psychiatric: reports: no symptoms reported Endocrine: reports: no symptoms reported Hematologic/Lymphatic: reports: no symptoms reported Allergic/Immunologic: reports: no symptoms reported All Other Systems: Reviewed and Negative Past History - Adult - PAST MEDICAL HISTORY-ADULT Review of Records: reports: Old Records Reviewed Major Childhood Illnesses: reports: denies history Cardiovascular: reports: HTN, hyperlipidemia Respiratory: reports: asthma, COPD Gastrointestinal: reports: denies history Obstetrical/Gynecological: reports: denies history Genitourinary: reports: denies history Musculoskeletal: reports: arthritis, chronic pain Neurological: reports: denies history Psychiatric: reports: anxiety, depression Endocrine/Immune: reports: Diabetes Other Conditions: reports: denies history - PRIOR SURGERIES/PROCEDURES Surgical/Procedure History: reports: reviewed, not pertinent, other (hemrrhoidectomy) - IMMUNIZATION STATUS Childhood Immunizations: See Nurse Assessment Flu Vaccine: See Nurse Assessment - FAMILY HISTORY Family History: reviewed, not pertinent Physical Exam-General - PHYSICAL EXAM-ADULT Initial Vital Signs Reviewed: Yes - CONSTITUTIONAL General Appearance: alert, mild distress (appears tachypneic and sitting on edge of bed, mild respiratory distress) - EYES Eyes: PERRL/EOMI - HEAD, EARS, NOSE, MOUTH & THROAT HENMT: normocephalic/atraumatic, moist mucous membranes - RESPIRATORY Respiratory: chest non-tender, respiratory distress (mild-moderate), wheezing (audibly), increased rate - CARDIOVASCULAR Cardiovascular: normal peripheral pulses, no murmur, tachycardia - GASTROINTESTINAL (ABDOMEN) Abdominal Exam: normal bowel sounds, non tender, soft - MUSCULOSKELETAL Back Exam: normal inspection Extremity: normal range of motion, non-tender, normal gait - SKIN Integumentary: normal color, warm/dry - NEUROLOGIC Neurologic: grossly normal - PSYCHIATRIC Psych/Mental Status: normal mood/affect, oriented x 3 Progress - PLAN OF CARE/RESULTS Progress/Plan/Lab Results: Vital Signs - 8 hr 12/09/18 05:30 12/09/18 06:02 Temperature 97.9 F Pulse Rate 113 H 88 Respiratory Rate 20 16 Blood Pressure 119/89 O2 Sat by Pulse Oximetry 92 L Laboratory Results - last 24 hr 12/09/18 12/09/18 12/09/18 06:10 06:10 06:10 WBC 7.06 RBC 4.84 Hgb 14.8 Hct 44.6 MCV 92.1 MCH 30.6 MCHC 33.2 RDW Std Deviation 14.1 Plt Count 259 MPV 9.2 Immature Gran % (Auto) 0.8 H Neut % (Auto) 40.6 L Lymph % (Auto) 44.8 [place] % (Auto) 8.4 Eos % (Auto) 5.0 Baso % (Auto) 0.4 Immature Gran # (Auto) 0.06 H Neut # (Auto) 2.87 Lymph # (Auto) 3.16 [place] # (Auto) 0.59 Eos # (Auto) 0.35 Baso # (Auto) 0.03 PT INR PTT (Actin FS) Specimen Type Sample Site pH pCO2 pO2 HCO3 Base Excess Oxyhemoglobin ABG O2 Sat (Calculated) ABG O2 Saturation ABG Carboxyhemoglobin ABG Methemoglobin Preet Test A-a O2 Difference Total Hemoglobin Lactate Liter Flow Blood Gas Modality FiO2 % Sodium 139 Potassium 4.4 Chloride 97 L Carbon Dioxide 27 Anion Gap 15 BUN 7 L Creatinine 0.5 Estimated GFR/1.73 m2 > 60 BUN/Creatinine Ratio 14 Glucose 156 H Calculated Osmolality 279 Calcium 9.8 Total Bilirubin 0.16 L AST 16 ALT 16 Alkaline Phosphatase 67 Troponin T Vec-U-Ojbjhdplmdf Pept 14 Total Protein 7.0 Albumin 4.6 Globulin 2.4 Albumin/Globulin Ratio 1.9 12/09/18 12/09/18 12/09/18 06:10 06:10 06:14 WBC RBC Hgb Hct MCV MCH MCHC RDW Std Deviation Plt Count MPV Immature Gran % (Auto) Neut % (Auto) Lymph % (Auto) [place] % (Auto) Eos % (Auto) Baso % (Auto) Immature Gran # (Auto) Neut # (Auto) Lymph # (Auto) [place] # (Auto) Eos # (Auto) Baso # (Auto) PT 12.8 INR 0.95 PTT (Actin FS) 24.2 Specimen Type ARTERIAL Sample Site R RADIAL pH 7.33 L pCO2 51 H* pO2 255 H HCO3 24.9 Base Excess 0.0 Oxyhemoglobin 97.2 ABG O2 Sat (Calculated) 21.1 ABG O2 Saturation 100.5 H ABG Carboxyhemoglobin 2.10 ABG Methemoglobin 1.2 Preet Test YES A-a O2 Difference 38.0 Total Hemoglobin 15.0 Lactate 2.90 H Liter Flow 10.0 Blood Gas Modality COOL AEROSOL FiO2 % 50.0 Sodium Potassium Chloride Carbon Dioxide Anion Gap BUN Creatinine Estimated GFR/1.73 m2 BUN/Creatinine Ratio Glucose Calculated Osmolality Calcium Total Bilirubin AST ALT Alkaline Phosphatase Troponin T < 0.010 Syf-A-Aznlezdiycc Pept Total Protein Albumin Globulin Albumin/Globulin Ratio Orders Category Date Time Status CHEST-PORTABLE [RAD] Stat Exams 12/09/18 05:52 Completed ABG [RESP] Routine Lab 12/09/18 06:14 Completed CBC WITH ELECTRONIC DIFF [HEME] Stat Lab 12/09/18 06:10 Completed COMPREHENSIVE METABOLIC PANEL [CHEM] Stat Lab 12/09/18 06:10 Completed PRO B-NATRIURETIC PEPTIDE Stat Lab 12/09/18 06:10 Completed PROTIME WITH INR [COAG] Stat Lab 12/09/18 06:10 Completed PTT [COAG] Stat Lab 12/09/18 06:10 Completed TROPONIN T Stat Lab 12/09/18 06:10 Completed Albuterol 2.5MG/Ipratrop 0.5MG [Duoneb (A & A)] Med 12/09/18 05:52 Discontinued 9 ml INH NOW ONE Budesonide [Pulmicort] Med 12/09/18 05:52 Discontinued 0.5 mg INH NOW ONE Methylprednisolone Sod Succ [Solu-Medrol] Med 12/09/18 05:52 Discontinued 125 mg IV NOW ONE Aerosol Treatments Routine Oth 12/09/18 05:52 Completed Aerosol Treatments Stat Oth 12/09/18 05:52 Completed EKG [EKG] Stat Ther 12/09/18 05:53 Draft Result Diagrams: 12/09/18 06:10 12/09/18 06:10 - REASSESSMENT Reassessment #1 Time Reassessed: 08:53 Status: unchanged (pt has persistent coarse rhonchi, mod wheeze. she has CO2 retention on the ABG (none of her prior assays showed this): will consult for admit.) - EKG 1 Time of EKG reading by physician:: 06:10 EKG Read and Signed by:: Lluvia Ferrara EKG Interpretation (*Must complete 3 of following elements*): Normal Rate: 110 Rhythm: Sinus tachycardia - CONSULTS/PCP/HOSPITALIST Notification #1 *Consult/PCP/Hospitalist*: [place] (Dr. Palmer) Time Discussed: 09:00 Consult Disposition: Admit - CHANGE OF SHIFT REPORT (ED Provider) 1 Report Given and Care Transferred to:: Souleymane Time of Transfer: 07:00 Items Pending: Labs, XRAY Results, Other (Likely admit) Departure - Departure Date of Disposition Decision: 12/09/18 Time of Disposition Decision: 09:00 DIAGNOSIS: COPD (chronic obstructive pulmonary disease), Dyspnea Disposition: ADMITTED INPATIENT 09 Certified Medical Emergency: Emergent Condition: Stable Referrals and Follow-Ups: None,PCP [Primary Care Provider] - - Critical Care Note This patient required my direct & personal management of CC.: Yes Total Time (mins): 75 Critical Care Statement: This patient required my direct personal management to treat or rule out processes, the absence of which, could potentiallly result in sudden, clinically significant life or limb threatening deterioration. Attestation - Physician/ ELDA Attestation Patient care was provided by Advanced Practice Provider:: No The physician spent face to face time with patient:: Yes Advanced Practice Provider documentation review:: Supervising physician onsite and consulted in the evaluation and care of this patient. The physician did have a face to face encounter with the patient.
--- NOTE | 2018-12-09 06:14 | EKG Report ---
Test Performed on : 12/09/2018 06:09:52 AM Test Reason : COPD Blood Pressure : / mmHG Vent. Rate : 110 BPM Atrial Rate : 110 BPM P-R Int : 130 ms QRS Dur : 062 ms QT Int : 308 ms P-R-T Axes : 078 070 041 degrees QTc Int : 416 ms Sinus tachycardia. Otherwise normal ECG When compared with ECG of 22-AUG-2018 11:20, No significant change was found Unconfirmed Result
[2018-12-09 06:19] LABS: BASO# 0.03 X1000 (0.0-0.2); BASO% 0.4 % (0.0-0.8); EOS# 0.35 X1000 (0.0-0.7); HEMATOCRIT 44.6 % (37.0-47.0); HEMOGLOBIN 14.8 g/dL (12.0-16.0); IMM GRAN# 0.06 X1000 (0.0-0.04); IMM GRAN% 0.8 % (0.0-0.5); LYMPH# 3.16 X1000 (1.2-3.4); LYMPH% 44.8 % (20.5-51.1); MCH 30.6 PG (27-31); MCHC 33.2 g/dL (33-37); MCV 92.1 FL (81-99); MONO# 0.59 X1000 (0.11-0.59); MONO% 8.4 % (1.7-9.3); MPV 9.2 FL (7.4-10.4); NEUT# 2.87 X1000 (1.4-6.5); NEUT% 40.6 % (42.2-75.2); PLT 259 X1000 (130-400); RBC 4.84 XMIL (4.2-5.4); RDW 14.1 % (11.5-14.5); WBC 7.06 X1000 (4.8-10.8)
[2018-12-09 06:28] LABS: ALLEN TEST YES; BLOOD TYPE ARTERIAL; HCO3-(ACT) 24.9 mmoll (20.0-26.0); METHB 1.2 % (0.0-1.5); O2(CT) 21.1 mL/dL (15.0-23.0); O2HB 97.2 % (95.0-99.0); PO2(98.6) 255 mmHg (60-100); SAMPLE BLOOD; SAO2 100.5 % (95.0-100.0); pH(98.6) 7.33 (7.35-7.45)
[2018-12-09 06:29] LABS: MODALITY COOL AEROSOL
[2018-12-09 06:30] LABS: PCO2(98.6) 51 mmHg (35-45)
[2018-12-09 06:31] LABS: INR 0.95; PROTIME 12.8 Seconds (11.0-16.0)
[2018-12-09 06:32] LABS: PTT 24.2 Seconds (22.3-41.8)
[2018-12-09 06:39] LABS: AGAP 15; ALB/GLOB RATIO 1.9; ALBUMIN 4.6 g/dL (3.5-5.0); ALKALINE PHOSPHATASE 67 U/L (32-104); BUN 7 mg/dL (8-22); CALCIUM 9.8 mg/dL (8.8-10.2); CHLORIDE 97 mmol/L (98-107); COSMO 279; CREATININE 0.5 mg/dL (0.5-0.9); ESTIMATED GFR > 60; GLUCOSE 156 mg/dL (70-104); GOT 16 U/L (10-30); GPT 16 U/L (10-36); POTASSIUM 4.4 mmol/L (3.5-5.1); SODIUM 139 mmol/L (136-145); TCO2 27 mmol/L (25-35); TOTAL BILIRUBIN 0.16 mg/dL (0.20-1.00)
--- NOTE | 2018-12-09 07:01 | Diag Imaging Result Doc PS360 ---
EXAM: CHEST-PORTABLE 12/09/2018 HISTORY: COPD TECHNIQUE: AP portable at 0611 COMMENT: The heart size and pulmonary vascularity are within normal limits. There is some apparent peribronchial thickening which has not changed in appearance since 08/23/2018. Otherwise are has been no significant change. IMPRESSION: Stable chest. Electronically signed by Ace Olivarez 12/09/2018 6:58 AM
--- NOTE | 2018-12-09 10:27 | HISTORY AND PHYSICAL ---
PRIMARY CARE PROVIDER: Luke Cordoba MD. HISTORY OF PRESENT ILLNESS: Ms. Fonseca is a 58-year-old, female with a past medical history of asthma, sciatica, diabetes mellitus type 2, hypertension, hyperlipidemia, and anxiety, who reported to the ED being short of breath and wheezing since yesterday, with a cough. She has been trying to use her home breathing treatments but they have not improved her breathing status. She denies any productive cough, fever, or chills. No chest pain. No nausea, vomiting, or diarrhea. Workup in the ED with an ABG showed hypercarbia with a CO2 of 51. She was initiated on supplemental O2, IV steroids, and bronchodilators. She reports some improvement of her status. However, she still remains tight sounding with inspiratory and expiratory wheezes. We will place her on the medical telemetry floor. Continue with IV steroids, bronchodilators, supplemental O2, and aggressive pulmonary toilet. PAST MEDICAL HISTORY: 1. Sciatica. 2. Longstanding history of asthma and allergies. 3. Diabetes mellitus type 2. 4. Hypertension. 5. Hyperlipidemia. 6. Anxiety. PAST SURGICAL HISTORY: Hemorrhoidectomy. SOCIAL HISTORY: She quit smoking in 2007. Denied any alcohol or illicit drug use. She lives at home alone. ALLERGIES: To morphine and NSAIDs which worsen her asthma. REVIEW OF SYSTEMS: Twelve-point review of systems completely negative except for those mentioned in the HPI. PHYSICAL EXAMINATION: VITAL SIGNS: Initial temperature was 97.9 degrees, heart rate 113, respirations 20, blood pressure 119/89, O2 is 92% on room air. She is currently saturating 95% on 2 L. GENERAL: Ms. Fonseca is a pleasant, 58-year-old female who is sitting up cross- legged in the bed, in no acute distress. HEENT: Atraumatic, normocephalic. PERRL. NECK: Supple. Trachea midline. CARDIOVASCULAR: S1, S2 appreciated. No murmurs, gallops, or rubs noted. No JVD. No pedal edema. Bilateral pedal pulses are palpable. LUNG SOUNDS: Inspiratory and expiratory wheezes. She does sound tight. ABDOMEN: Soft, nontender, nondistended. Positive bowel sounds in 4 quadrants. NEUROLOGIC: No focal deficits noted. LABORATORY DATA: White count 7, hemoglobin and hematocrit 14 and 44, platelet count is 259,000. ABG: pH 7.33, pCO2 of 51, PO2 is 255, bicarb is 24, O2 saturation was 100. Chemistry: Sodium 139, potassium 4.4, BUN 7, creatinine 0.5, blood glucose was 156. Troponin was less than 0.010. ASSESSMENT AND PLAN: 1. Asthma exacerbation. We will continue with intravenous steroids, bronchodilators, supplemental oxygen, and aggressive pulmonary toilet. 2. Allergies. We will continue her home medications. 3. Diabetes mellitus type 2. Continue pattern of blood sugars with sliding scale and home medications. 4. History of gastroesophageal reflux disease. Continue her proton pump inhibitor. 5. Hypertension. We will continue her home blood pressure medications. 6. Hyperlipidemia. Continue statin. 7. Acute hypercapnic respiratory failure. We will continue treatment for her asthma exacerbation and recheck her arterial blood gases in the morning. 8. Further recommendations to follow physician evaluation, laboratory and diagnostic data. Dictated by MERI Nino for Volodymyr Self MD Addendum: Patient seen and examined by myself. Agree with MERI note. It reflects my assessment and plan. Patient is being admitted to hospital for acute hypercapnic respiratory failure secondary to asthma exacerbation. Will start Duoneb q4hr scheduled, IV steroids and oxygen supplementation. Will monitor patient closely. cc: MD Luke Coronado MD MTDD
[2018-12-09] MEDS ORDERED: ZOFRAN IV PRN (10:30)
[2018-12-09] MEDS ORDERED: DUONEB (A & A) INH PRN (10:30)
[2018-12-09] MEDS ORDERED: TYLENOL PO PRN (10:30)
[2018-12-09] MEDS: DUONEB (A & A) INH SCH ×4 (10:58→22:46)
[2018-12-09] MEDS: HUMALOG SUBQ SCH ×3 (11:36→20:42)
[2018-12-09] MEDS: ZITHROMAX 500 MG/NS 500 MG/250 ML IVPB IV SCH (12:12)
[2018-12-09] MEDS: SOLU-MEDROL IV SCH ×4 (12:40→23:37)
[2018-12-09] MEDS ORDERED: TESSALON PO PRN (13:41)
[2018-12-09] MEDS: GLUCOPHAGE PO SCH (16:54)
[2018-12-09] MEDS: SYMBICORT 160/4.5 MICROGM INHALER INH SCH (19:34)
[2018-12-09] MEDS: TESSALON PO PRN (20:42)
[2018-12-10] MEDS: TESSALON PO PRN ×3 (03:24→16:26)
[2018-12-10] MEDS: DUONEB (A & A) INH SCH ×6 (03:46→23:25)
[2018-12-10 04:45] LABS: ALLEN TEST YES; BE -3.5 mmoll (-3.0-3.0); BLOOD TYPE ARTERIAL; HCO3-(ACT) 22.1 mmoll (20.0-26.0); METHB 1.3 % (0.0-1.5); O2(CT) 18.6 mL/dL (15.0-23.0); O2HB 95.3 % (95.0-99.0); PCO2(98.6) 44 mmHg (35-45); PO2(98.6) 89 mmHg (60-100); SAMPLE BLOOD; SAO2 99.1 % (95.0-100.0); THB 13.8 g/dL (11.5-17.4); pH(98.6) 7.32 (7.35-7.45)
[2018-12-10 04:52] LABS: MODALITY CANNULA
[2018-12-10] MEDS: HUMALOG SUBQ SCH ×4 (06:04→23:04)
[2018-12-10] MEDS: SOLU-MEDROL IV SCH ×4 (06:04→23:02)
--- NOTE | 2018-12-10 06:57 | Diag Imaging Result Doc PS360 ---
EXAM: CHEST-PORTABLE HISTORY: short of breath TECHNIQUE: Portable chest single view COMPARISON: 12/09/2018 FINDINGS: The lungs are well expanded. The heart is not enlarged. The vessels are not distended. There are no infiltrates. No effusion identified. IMPRESSION: Negative exam. Electronically signed by Terry Aquino 12/10/2018 6:55 AM
[2018-12-10 07:22] LABS: BASO# 0.01 X1000 (0.0-0.2); BASO% 0.1 % (0.0-0.8); HEMATOCRIT 40.4 % (37.0-47.0); HEMOGLOBIN 13.5 g/dL (12.0-16.0); IMM GRAN# 0.05 X1000 (0.0-0.04); IMM GRAN% 0.5 % (0.0-0.5); LYMPH# 0.86 X1000 (1.2-3.4); LYMPH% 8.3 % (20.5-51.1); MCH 30.8 PG (27-31); MCHC 33.4 g/dL (33-37); MONO% 2.9 % (1.7-9.3); MPV 9.8 FL (7.4-10.4); NEUT# 9.16 X1000 (1.4-6.5); NEUT% 88.2 % (42.2-75.2); PLT 201 X1000 (130-400); RBC 4.39 XMIL (4.2-5.4); RDW 13.6 % (11.5-14.5); WBC 10.38 X1000 (4.8-10.8)
[2018-12-10] MEDS: SYMBICORT 160/4.5 MICROGM INHALER INH SCH ×2 (07:34→19:45)
[2018-12-10 07:51] LABS: AGAP 18; ALB/GLOB RATIO 1.6; ALBUMIN 4.1 g/dL (3.5-5.0); ALKALINE PHOSPHATASE 56 U/L (32-104); BUN 10 mg/dL (8-22); CALCIUM 9.5 mg/dL (8.8-10.2); CHLORIDE 98 mmol/L (98-107); COSMO 285; CREATININE 0.6 mg/dL (0.5-0.9); ESTIMATED GFR > 60; GLUCOSE 355 mg/dL (70-104); GOT 11 U/L (10-30); GPT 13 U/L (10-36); POTASSIUM 4.1 mmol/L (3.5-5.1); SODIUM 136 mmol/L (136-145); TCO2 20 mmol/L (25-35); TOTAL BILIRUBIN 0.16 mg/dL (0.20-1.00); TOTAL PROTEIN 6.6 g/dL (6.3-8.3)
[2018-12-10 08:12] LABS: BANDS 2 % (0-1); LARGE PLATELETS 1+; LYMPHS 12 % (21-51); SEGS 84 % (42-75)
[2018-12-10] MEDS: JANUVIA PO SCH (08:56)
[2018-12-10] MEDS: PRAVACHOL PO SCH (08:56)
[2018-12-10] MEDS: SINGULAIR PO SCH (08:56)
[2018-12-10] MEDS: THEO-24 PO SCH (08:57)
[2018-12-10] MEDS: PRILOSEC PO SCH (08:57)
[2018-12-10] MEDS: COZAAR PO SCH (08:57)
[2018-12-10] MEDS: DYAZIDE PO SCH (08:57)
[2018-12-10] MEDS: GLUCOPHAGE PO SCH ×2 (09:03→16:26)
[2018-12-10] MEDS: ZITHROMAX 500 MG/NS 500 MG/250 ML IVPB IV SCH (11:36)
--- NOTE | 2018-12-10 13:31 | PROGRESS NOTE ---
DATE: 12/10/2018 SUBJECTIVE: She is breathing a bit better. I saw her kind of ambulating in her room. Still having some wheezing obviously. OBJECTIVE: Blood pressure 136/86, heart rate 85, respiratory rate 19, temperature 98.6 degrees, and 100% on 2 L.Cardiovascular: Regular rate and rhythm. Pulmonary: She has diffuse end- expiratory wheezes. GI: Soft, nontender, and nondistended. Bowel sounds are positive. LABORATORY DATA: White count is 10, hemoglobin and hematocrit 13 and 40, and platelets 201,000. A pH 7.32, pCO2 42, PaO2 89. Lactate is up a little bit at 5.7, but clinically she looks okay. Blood sugars are still very high 200 to 300. PROBLEM LIST: 1. Acute asthma exacerbation. There is no clear evidence of infection. No white count. No fever. We will continue treatments. She is on breathing treatments, she is on steroids. She is on theophylline, and she has been placed on azithromycin. She is on Symbicort I believe at max dose twice a day. She has really kind of maximized on treatment. We just need to resolve. We will check some peak flows and follow. 2. Type 2 diabetes. Obviously, she is going to be agitated by her steroid use. She is on metformin, Januvia and as far as I can tell that is it. She is on a sliding scale here I believe. I really do not have much room to go on any of her medications. I may add some Victoza while she is here just because she is possibly a candidate for that. DISPOSITION: I think she is probably going to need a couple more days at least of treatment before she is stable to go home. I did wean her steroids a little bit, and we will see how she does. cc: Chay Douglas MD
[2018-12-10] MEDS: VICTOZA SUBQ SCH (14:00)
[2018-12-10] MEDS ORDERED: INSULIN PEN NEEDLES ONE (14:08)
[2018-12-11] MEDS: TESSALON PO PRN ×3 (00:09→21:55)
[2018-12-11] MEDS: DUONEB (A & A) INH SCH ×6 (03:27→23:12)
[2018-12-11] MEDS: LOVENOX SUBQ SCH (06:38)
[2018-12-11] MEDS: SOLU-MEDROL IV SCH ×3 (06:38→21:55)
[2018-12-11] MEDS: HUMALOG SUBQ SCH ×4 (06:39→21:54)
[2018-12-11] MEDS: SYMBICORT 160/4.5 MICROGM INHALER INH SCH ×2 (07:40→19:45)
[2018-12-11 07:46] LABS: BASO# 0.01 X1000 (0.0-0.2); BASO% 0.1 % (0.0-0.8); HEMATOCRIT 38.6 % (37.0-47.0); HEMOGLOBIN 12.9 g/dL (12.0-16.0); IMM GRAN# 0.09 X1000 (0.0-0.04); IMM GRAN% 0.7 % (0.0-0.5); LYMPH# 0.69 X1000 (1.2-3.4); LYMPH% 5.2 % (20.5-51.1); MCH 30.9 PG (27-31); MCHC 33.4 g/dL (33-37); MCV 92.3 FL (81-99); MONO# 0.45 X1000 (0.11-0.59); MONO% 3.4 % (1.7-9.3); MPV 9.8 FL (7.4-10.4); NEUT% 90.6 % (42.2-75.2); PLT 202 X1000 (130-400); RBC 4.18 XMIL (4.2-5.4); WBC 13.24 X1000 (4.8-10.8)
[2018-12-11 08:09] LABS: AGAP 16; BUN 12 mg/dL (8-22); CALCIUM 9.9 mg/dL (8.8-10.2); CHLORIDE 95 mmol/L (98-107); COSMO 278; CREATININE 0.6 mg/dL (0.5-0.9); ESTIMATED GFR > 60; GLUCOSE 307 mg/dL (70-104); POTASSIUM 3.4 mmol/L (3.5-5.1); SODIUM 133 mmol/L (136-145); TCO2 22 mmol/L (25-35)
[2018-12-11 08:30] LABS: LYMPHS 7 % (21-51); MONO 3 % (1-9); SEGS 90 % (42-75)
[2018-12-11] MEDS: VICTOZA SUBQ SCH (09:22)
[2018-12-11] MEDS: COZAAR PO SCH (09:23)
[2018-12-11] MEDS: DYAZIDE PO SCH (09:23)
[2018-12-11] MEDS: SINGULAIR PO SCH (09:23)
[2018-12-11] MEDS: JANUVIA PO SCH (09:23)
[2018-12-11] MEDS: PRAVACHOL PO SCH (09:23)
[2018-12-11] MEDS: THEO-24 PO SCH (09:23)
[2018-12-11] MEDS: GLUCOPHAGE PO SCH ×2 (09:24→17:13)
[2018-12-11] MEDS: PRILOSEC PO SCH (09:27)
[2018-12-11] MEDS: ZITHROMAX 500 MG/NS 500 MG/250 ML IVPB IV SCH (09:31)
[2018-12-11] MEDS ORDERED: KLOR-CON PO ONE (17:10)
--- NOTE | 2018-12-11 17:56 | PROGRESS NOTE ---
DATE: 12/11/2018 SUBJECTIVE: The patient has no major complaints. Her breathing is much better. Blood pressure is stable. Her breathing is overall improved. Still with some cough. Peak flows are good. OBJECTIVE: Vital Signs: Blood pressure 130/78, heart rate 107, respiratory rate 18, temperature 98.5. Cardiovascular: Regular rate and rhythm. Pulmonary: Bilateral breath sounds clear to auscultation. No wheezing today. GI: Soft, nontender, nondistended. Bowel sounds are positive. LABORATORY DATA: White count is 13, but she is on high-dose steroids. Hemoglobin and hematocrit 12 and 38, platelets 202. Sodium 133, potassium 3.4. PROBLEM LIST: 1. Acute asthma exacerbation. She is much improved. We will continue to decrease her steroids and follow. No clear evidence of infection, but she does have a white count now on glucocorticoids. 2. Type 2 diabetes. She is still not well controlled, but she is on steroids, which we will continue for the time being. 3. Hypokalemia, mild. We will continue treatment and follow. DISPOSITION: I anticipate that if she is better tomorrow, we should be able to discharge her. cc: Chay Douglas MD
[2018-12-12] MEDS: DUONEB (A & A) INH SCH ×3 (03:22→11:32)
[2018-12-12 03:56] LABS: ALLEN TEST YES; BE -0.9 mmoll (-3.0-3.0); BLOOD TYPE ARTERIAL; HCO3-(ACT) 24.2 mmoll (20.0-26.0); METHB 1.2 % (0.0-1.5); O2(CT) 18.6 mL/dL (15.0-23.0); O2HB 95.1 % (95.0-99.0); PCO2(98.6) 31 mmHg (35-45); PO2(98.6) 75 mmHg (60-100); SAMPLE BLOOD; SAO2 98.1 % (95.0-100.0); THB 13.9 g/dL (11.5-17.4); pH(98.6) 7.46 (7.35-7.45)
[2018-12-12 03:59] LABS: MODALITY ROOM AIR
[2018-12-12] MEDS: SOLU-MEDROL IV SCH ×2 (04:53→11:19)
[2018-12-12] MEDS: TESSALON PO PRN (05:21)
[2018-12-12] MEDS: LOVENOX SUBQ SCH (05:22)
[2018-12-12] MEDS: HUMALOG SUBQ SCH ×2 (06:15→11:18)
[2018-12-12 07:36] VITALS: BP 135/78
[2018-12-12 07:57] LABS: AGAP 20; BUN 14 mg/dL (8-22); CALCIUM 9.5 mg/dL (8.8-10.2); CHLORIDE 99 mmol/L (98-107); COSMO 287; CREATININE 0.6 mg/dL (0.5-0.9); ESTIMATED GFR > 60; GLUCOSE 301 mg/dL (70-104); MAGNESIUM 2.1 mg/dL (1.5-2.7); POTASSIUM 4.2 mmol/L (3.5-5.1); SODIUM 138 mmol/L (136-145); TCO2 19 mmol/L (25-35)
[2018-12-12] MEDS: SYMBICORT 160/4.5 MICROGM INHALER INH SCH (08:24)
[2018-12-12] MEDS: THEO-24 PO SCH (09:40)
[2018-12-12] MEDS: DYAZIDE PO SCH (09:40)
[2018-12-12] MEDS: PRILOSEC PO SCH (09:40)
[2018-12-12] MEDS: PRAVACHOL PO SCH (09:40)
[2018-12-12] MEDS: VICTOZA SUBQ SCH (09:41)
[2018-12-12] MEDS: JANUVIA PO SCH (09:41)
[2018-12-12] MEDS: GLUCOPHAGE PO SCH (09:41)
[2018-12-12] MEDS: COZAAR PO SCH (09:41)
[2018-12-12] MEDS: SINGULAIR PO SCH (09:41)
[2018-12-12] MEDS: ZITHROMAX 500 MG/NS 500 MG/250 ML IVPB IV SCH (09:43)
--- NOTE | 2018-12-12 14:32 | DISCHARGE SUMMARY ---
ADMISSION DATE: 12/09/2018 DISCHARGE DATE: 12/12/2018 DISCHARGE DIAGNOSES: 1. Asthma exacerbation. 2. Diabetes. 3. Hypertension. Briefly a 58-year-old female presenting with shortness of breath. I have taken care of her before. She has pure asthma. She is not a smoker at least not currently. She was placed on IV antibiotics, steroids. Slowly improved. When I saw her on the , she was still wheezing. We continued treatment. Wheezing improved by the . She was still on relatively high-dose steroid so we titrated down on those, and patient was stabilized and felt stable for discharge on the . DISCHARGE MEDICATIONS: 1. DuoNeb, which I gave her a prescription for. 2. Januvia 100 daily. 3. Losartan 100 daily. 4. Metformin 1 g b.i.d. 5. Omeprazole 40 daily. 6. Pravastatin 10 daily. 7. Singulair 10 daily. 8. Theophylline 400 q.24. 9. Hyzaar 37.5/25 daily. 10. Azithromycin 250 daily for another 3 days. 11. Prednisone taper. 12. Symbicort. DISCHARGE CONDITION: Stable. FOLLOW UP: With Dr. Cordoba in 1 to 2 weeks. Return for worsening shortness of breath or cough. 32 minute discharge. cc: Chay Douglas MD
== END 2018-12-12 13:30 | disposition home or self-care (01) | DRG 190 ==
LOC: ED 05:26 → 3N 10:05 → SUATTDRO 10:05
PROVIDERS: ATTEND Internal Medicine

== ENCOUNTER 2019-01-15 04:35 | Inpatient (IN) ==
[2019-01-15] MEDS ORDERED: SOLU-MEDROL IV ONE (04:52)
[2019-01-15] MEDS ORDERED: DUONEB (A & A) INH ONE (04:52)
[2019-01-15] MEDS ORDERED: PULMICORT INH ONE (04:52)
--- NOTE | 2019-01-15 04:58 | PROVIDER DOCUMENTATION ---
HPI-Respiratory General - General Chief Complaint: Wheezing Stated Complaint: SOB Time Seen by Provider: 01/15/19 04:51 Source: patient Allergies/Adverse Reactions: Patient Allergies Allergy/AdvReac Type Severity Reaction Status Date / Time ibuprofen [From Advil] Allergy Intermediate SHORTNESS Verified 01/15/19 05:02 OF BREATH naproxen sodium * Allergy Intermediate SHORTNESS Verified 01/15/19 05:02 [From Aleve] OF BREATH morphine Allergy Mild "THE Verified 01/15/19 05:02 ULTIMATE DOOM" NSAIDS (Non-Steroidal Allergy SHORTNESS Verified 01/15/19 05:02 Anti-Inflamma OF BREATH Home Medications: Home Medication List Medication Instructions Recorded Confirmed Last Taken Type Losartan Potassium 100 mg PO DAILY 08/20/16 01/15/19 01/14/19 05:00 History Metformin HCl 1,000 mg PO BID 08/20/16 01/15/19 01/14/19 15:00 History Omeprazole 40 mg PO DAILY 08/20/16 01/15/19 01/14/19 05:00 History Pravastatin Sodium 10 mg PO DAILY 08/20/16 01/15/19 01/14/19 05:00 History Theophylline Anhydrous 400 mg PO DAILY 08/20/16 01/15/19 01/14/19 05:00 History [Theophylline] Triamterene/Hydrochlorothiazid 37.5 mg PO DAILY 08/20/16 01/15/19 01/14/19 05:00 History [Triamterene-Hctz 37.5-25 mg Cp] Montelukast Sodium [Singulair] 10 mg PO DAILY 05/07/18 01/15/19 01/14/19 15:00 History Sitagliptin Phosphate [Januvia] 100 mg PO DAILY 08/22/18 01/15/19 01/14/19 05:00 History Albuterol 2.5MG/Ipratrop 0.5MG 3 ml INH Q6H PRN PRN 01/15/19 01/15/19 01/15/19 03:30 History [Duoneb (A & A)] - History of Present Illness-Resp Nature of Presenting Problem: Presents to the with complaints of SOB that has been going on since Monday but got acutely worse tongiht. She states that she had her flu shot on Monday. She endorses a cough but denies any fevers or chills. She states that she does take breathing treatments at home. She was last hospitalized 1 month ago for t his. She states she quit smoking 10-12 years ago but she still does have some smokers around her. She was brought in by EMS who gave her one albuterol treatment and put her on a NRB @10lpm. She deneis any history of CHF and doesnt think she takes a water pill Review of Systems - Adult - REVIEW OF SYSTEMS - ADULT Constitutional: reports: see HPI. denies: fatique Eyes: reports: no symptoms reported Ears, Nose, Mouth & Throat: reports: no symptoms reported Cardiovascular: reports: no symptoms reported, see HPI. denies: chest pain Respiratory: reports: chronic cough, cough, dyspnea on exertion, shortness of breath, wheezing. denies: excessive sputum production Gastrointestinal: reports: no symptoms reported Genitourinary: reports: no symptoms reported Musculoskeletal: reports: no symptoms reported Integumentary: reports: no symptoms reported Neurological: reports: no symptoms reported Psychiatric: reports: no symptoms reported Endocrine: reports: no symptoms reported Hematologic/Lymphatic: reports: no symptoms reported Allergic/Immunologic: reports: no symptoms reported All Other Systems: Reviewed and Negative Past History - Adult - PAST MEDICAL HISTORY-ADULT Review of Records: reports: Old Records Reviewed Major Childhood Illnesses: reports: denies history Cardiovascular: reports: HTN, hyperlipidemia Respiratory: reports: asthma, COPD Gastrointestinal: reports: denies history Obstetrical/Gynecological: reports: denies history Genitourinary: reports: denies history Musculoskeletal: reports: arthritis, chronic pain Neurological: reports: denies history Psychiatric: reports: anxiety, depression Endocrine/Immune: reports: Diabetes Other Conditions: reports: denies history - PRIOR SURGERIES/PROCEDURES Surgical/Procedure History: reports: reviewed, not pertinent, other (hemrrhoidectomy) - IMMUNIZATION STATUS Childhood Immunizations: See Nurse Assessment Flu Vaccine: See Nurse Assessment - FAMILY HISTORY Family History: reviewed, not pertinent Physical Exam-General - PHYSICAL EXAM-ADULT Initial Vital Signs Reviewed: Yes - CONSTITUTIONAL General Appearance: alert, mild distress - EYES Eyes: PERRL/EOMI - HEAD, EARS, NOSE, MOUTH & THROAT HENMT: normocephalic/atraumatic - NECK Neck: non-tender, supple, normal inspection - RESPIRATORY Respiratory: chest non-tender, respiratory distress, wheezing (diffuse), retractions, increased rate - CARDIOVASCULAR Cardiovascular: normal peripheral pulses, no edema, no murmur, tachycardia - GASTROINTESTINAL (ABDOMEN) Abdominal Exam: normal bowel sounds, non tender, soft - MUSCULOSKELETAL Back Exam: normal inspection Extremity: normal range of motion, normal inspection, no pedal edema - SKIN Integumentary: normal color, warm/dry - NEUROLOGIC Neurologic: grossly normal - PSYCHIATRIC Psych/Mental Status: normal mood/affect, oriented x 3 Progress - PLAN OF CARE/RESULTS Progress/Plan/Lab Results: Vital Signs - 8 hr 01/15/19 04:43 01/15/19 04:59 01/15/19 06:04 Temperature 98.3 F Pulse Rate 106 H 105 H 108 H Respiratory Rate 17 27 H 19 Blood Pressure 137/113 145/103 O2 Sat by Pulse Oximetry 100 95 92 L Laboratory Results - last 24 hr 01/15/19 01/15/19 01/15/19 05:00 05:00 05:00 WBC 5.41 RBC 4.42 Hgb 13.7 Hct 42.1 MCV 95.2 MCH 31.0 MCHC 32.5 L RDW Std Deviation 14.7 H Plt Count 240 MPV 9.1 Neut % (Auto) 42.2 Lymph % (Auto) 44.5 [place] % (Auto) 10.7 H Eos % (Auto) 2.0 Baso % (Auto) 0.6 Neut # (Auto) 2.28 Lymph # (Auto) 2.41 [place] # (Auto) 0.58 Eos # (Auto) 0.11 Baso # (Auto) 0.03 PT 12.2 INR 0.90 PTT (Actin FS) 24.7 Plasma Lactate 2.1 Orders Category Date Time Status CHEST-PORTABLE [RAD] Stat Exams 01/15/19 04:52 Ordered ABG [RESP] Routine Lab 01/15/19 06:04 Ordered CBC WITH ELECTRONIC DIFF [HEME] Stat Lab 01/15/19 05:00 Completed COMPREHENSIVE METABOLIC PANEL [CHEM] Stat Lab 01/15/19 05:00 Received LACTATE, PLASMA [CHEM] Stat Lab 01/15/19 05:00 Completed PRO B-NATRIURETIC PEPTIDE Stat Lab 01/15/19 05:00 Received PROTIME WITH INR [COAG] Stat Lab 01/15/19 05:00 Completed PTT [COAG] Stat Lab 01/15/19 05:00 Completed TROPONIN T Stat Lab 01/15/19 05:00 Received Albuterol 2.5MG/Ipratrop 0.5MG [Duoneb (A & A)] Med 01/15/19 04:52 Discontinued 9 ml INH NOW ONE Budesonide [Pulmicort] Med 01/15/19 04:52 Discontinued 0.5 mg INH NOW ONE Methylprednisolone Sod Succ [Solu-Medrol] Med 01/15/19 04:52 Discontinued 125 mg IV NOW ONE Aerosol Treatments Routine Oth 01/15/19 04:53 Completed Aerosol Treatments Stat Oth 01/15/19 04:53 Completed EKG [EKG] Stat Ther 01/15/19 04:39 Draft Patient given multiple breathing treatments and still SpO2 90% on room air. Patient has no home O2. She still appears slightly tachypneic. Patient here for multiple admissions, most recely 1 month ago. Spoke to Dr Chinchilla construction controller for hospitalist who accepted patient for admission to the day team. Furter orders to be placed by their team. Result Diagrams: 01/15/19 05:00 - EKG 1 Time of EKG reading by physician:: 04:46 EKG Read and Signed by:: Lluvia Ferrara EKG Interpretation (*Must complete 3 of following elements*): Normal Rate: 106 Rhythm: Sinus tachycardia [place]: normal QRS: normal [place] Interval: normal ST Wave: normal Prior EKG Comparison: unchanged from prior - CONSULTS/PCP/HOSPITALIST Notification #1 *Consult/PCP/Hospitalist*: Dr Chinchilla Time Discussed: 06:07 Consult Disposition: Admit, other (will pass pt to day team) Departure - Departure Date of Disposition Decision: 01/15/19 Time of Disposition Decision: 06:05 DIAGNOSIS: COPD (chronic obstructive pulmonary disease), Dyspnea, Hypoxia Disposition: ADMITTED INPATIENT 09 Certified Medical Emergency: Emergent Condition: Stable Referrals and Follow-Ups: Luke Cordoba MD [Primary Care Provider] - - Critical Care Note This patient required my direct & personal management of CC.: Yes Total Time (mins): 35 Critical Care Statement: This patient required my direct personal management to treat or rule out processes, the absence of which, could potentiallly result in sudden, clinically significant life or limb threatening deterioration. Attestation - Physician/ ELDA Attestation Patient care was provided by Advanced Practice Provider:: No The physician spent face to face time with patient:: Yes Advanced Practice Provider documentation review:: Supervising physician onsite and consulted in the evaluation and care of this patient. The physician did have a face to face encounter with the patient.
--- NOTE | 2019-01-15 05:09 | EKG Report ---
Test Performed on : 01/15/2019 04:46:24 AM Test Reason : SOB Blood Pressure : / mmHG Vent. Rate : 106 BPM Atrial Rate : 106 BPM P-R Int : 136 ms QRS Dur : 072 ms QT Int : 342 ms P-R-T Axes : 073 077 054 degrees QTc Int : 454 ms Sinus tachycardia. Otherwise normal ECG When compared with ECG of 09-DEC-2018 06:09, No significant change was found Unconfirmed Result
[2019-01-15 05:31] LABS: BASO# 0.03 X1000 (0.0-0.2); BASO% 0.6 % (0.0-0.8); EOS# 0.11 X1000 (0.0-0.7); HEMATOCRIT 42.1 % (37.0-47.0); HEMOGLOBIN 13.7 g/dL (12.0-16.0); LYMPH# 2.41 X1000 (1.2-3.4); LYMPH% 44.5 % (20.5-51.1); MCHC 32.5 g/dL (33-37); MCV 95.2 FL (81-99); MONO# 0.58 X1000 (0.11-0.59); MONO% 10.7 % (1.7-9.3); MPV 9.1 FL (7.4-10.4); NEUT# 2.28 X1000 (1.4-6.5); NEUT% 42.2 % (42.2-75.2); PLT 240 X1000 (130-400); RBC 4.42 XMIL (4.2-5.4); RDW 14.7 % (11.5-14.5); WBC 5.41 X1000 (4.8-10.8)
[2019-01-15 05:39] LABS: INR 0.9; PROTIME 12.2 Seconds (11.0-16.0)
[2019-01-15 05:40] LABS: PTT 24.7 Seconds (22.3-41.8)
[2019-01-15 06:12] LABS: AGAP 13; ALB/GLOB RATIO 2.5; ALBUMIN 4.7 g/dL (3.5-5.0); ALKALINE PHOSPHATASE 56 U/L (32-104); BUN 4 mg/dL (8-22); CHLORIDE 101 mmol/L (98-107); COSMO 279; CREATININE 0.6 mg/dL (0.5-0.9); ESTIMATED GFR > 60; GLUCOSE 155 mg/dL (70-104); GOT 14 U/L (10-30); GPT 13 U/L (10-36); POTASSIUM 3.9 mmol/L (3.5-5.1); SODIUM 140 mmol/L (136-145); TCO2 26 mmol/L (25-35); TOTAL BILIRUBIN < 0.15 mg/dL (0.20-1.00); TOTAL PROTEIN 6.6 g/dL (6.3-8.3)
[2019-01-15 06:31] LABS: ALLEN TEST YES; BE 0.5 mmoll (-3.0-3.0); BLOOD TYPE ARTERIAL; HCO3-(ACT) 25.3 mmoll (20.0-26.0); METHB 0.9 % (0.0-1.5); O2(CT) 19.7 mL/dL (15.0-23.0); PCO2(98.6) 47 mmHg (35-45); PO2(98.6) 110 mmHg (60-100); SAMPLE BLOOD; SAO2 99.2 % (95.0-100.0); THB 14.5 g/dL (11.5-17.4); pH(98.6) 7.36 (7.35-7.45)
[2019-01-15 06:32] LABS: MODALITY CANNULA
--- NOTE | 2019-01-15 07:05 | Diag Imaging Result Doc PS360 ---
EXAM: CHEST-PORTABLE 01/15/2019 HISTORY: COPD TECHNIQUE: AP portable at 0618 COMMENT: There is no evidence of acute cardiac or pulmonary disease. Compared to 12/10/2018 the appearance the chest has not changed significantly. IMPRESSION: Stable chest. Electronically signed by Ace Olivarez 01/15/2019 7:03 AM
[2019-01-15] MEDS ORDERED: DUONEB (A & A) INH PRN (08:48)
[2019-01-15] MEDS ORDERED: NS NEB INH SCH (09:00)
[2019-01-15] MEDS ORDERED: [UNRECOGNIZED DRUG - OTHER] PO SCH (09:00)
[2019-01-15] MEDS ORDERED: JANUVIA PO SCH (09:00)
--- NOTE | 2019-01-15 10:18 | HISTORY AND PHYSICAL ---
ADDENDUM: The patient seen and examined by me [id number]. All the laboratory, vital signs and images were reviewed. This patient has been complaining of shortness of breath since Monday. She does have multiple family members with respiratory infection at home at least 3 or 4. She has also has been having some runny nose. She had a flu shot last Monday. She denies nausea, vomiting, but she is complaining of generalized muscle soreness and subjective fever and chills. No nausea, no vomiting, no diarrhea, no constipation. Also she has been complaining of some diarrhea. She seems to be hydrated. She seems to be tolerating p.o. I will put her on a soft diet for now for a diabetic patient. We will continue with breathing treatment, oxygen supplementation. I will add levofloxacin to her medications. Even though the x-ray read by the radiologist did not show any abnormality, I do believe she has some infiltrates at the level of the right lower lobe and some atelectasis as well. Physical exam showed decreased breath sounds bilaterally with some crepitus at the right base and prolonged expiratory phase with inspiratory and expiratory wheezing. I agree with the rest of the nurse practitioner's assessment and plan. cc: Mark Noel MD
[2019-01-15] MEDS: ATROVENT NEB INH SCH ×4 (11:18→23:19)
[2019-01-15] MEDS: XOPENEX NEB INH SCH ×4 (11:18→23:19)
[2019-01-15] MEDS: HUMALOG SUBQ SCH ×3 (11:25→21:27)
[2019-01-15] MEDS: SOLU-MEDROL IV SCH ×2 (11:25→21:27)
[2019-01-15] MEDS: LEVAQUIN 500 MG/D5W 500 MG/100 ML IVPB IV SCH (11:25)
[2019-01-15] MEDS: COZAAR PO SCH (11:26)
[2019-01-15] MEDS: SINGULAIR PO SCH (11:26)
--- NOTE | 2019-01-15 12:00 | HISTORY AND PHYSICAL ---
CHIEF COMPLAINT: Shortness of breath, wheezing. HISTORY OF PRESENT ILLNESS: This is a 58-year-old female with a history of asthma, who presents to the emergency room complaining of increasing shortness of breath at rest, dyspnea on exertion that started on Monday. The patient states she got a flu shot on Monday, preceding symptoms. She does report multiple family members that have upper respiratory infections that she has been in contact with over the last week. She reports a clear runny nose, a nonproductive cough. She denies any chest pain, syncope, any palpitations, nausea, vomiting. She has had some diarrhea throughout the last 24 hours. PAST MEDICAL HISTORY: Asthma, sciatica, diabetes mellitus type 2, hypertension, hyperlipidemia, and anxiety. PAST SURGICAL HISTORY: Hemorrhoidectomy. SOCIAL HISTORY: She quit smoking in 2007. She denies any alcohol or illicit drug use. She lives at home alone. ALLERGIES: Morphine and NSAIDs, which worsen her asthma. FAMILY HISTORY: Notable for type 2 diabetes, asthma, and heart disease in first-degree relatives. REVIEW OF SYSTEMS: Discussed with the patient with pertinent positives stated in the HPI. She denied any syncope, dizziness, any chest pain, palpitations, a productive cough, any fevers or chills, recent weight loss or weight gain, any nausea, vomiting, constipation, any black or bloody vomitus or stools, hematuria, dysuria, frequency, urgency. PHYSICAL EXAMINATION: GENERAL: This is a 58-year-old female who is sitting up in the bed in mild distress. VITAL SIGNS: Blood pressure is 137/90 with heart rate of 110, respirations are 20, temperature is 97.9 degrees oral, with O2 saturations of 92% to 96% on 4 L nasal cannula. EYES: Pupils are equal, round, react to light. EOMs are intact. Sclerae anicteric. HENT: Head is normocephalic, atraumatic. Mucous membranes are moist. NECK: Supple with trachea midline. CARDIOVASCULAR: Regular rate and rhythm. S1 and S2 appreciated. EXTREMITIES: Calves are nontender bilaterally, with peripheral pulses palpable x4 extremities. PULMONARY: Breath sounds with inspiratory and expiratory wheezes noted throughout. She is diminished at the bases. Chest does rise and fall symmetrically with respiration. GASTROINTESTINAL: Abdomen is soft, nontender, nondistended with bowel sounds in all 4 quadrants. GENITOURINARY: No CVA or suprapubic tenderness. NEUROLOGIC: She is alert and oriented x3. SKIN: Warm and dry. IMAGING AND LABORATORY DATA: WBC is 5.4, with hemoglobin 13.7, hematocrit 42.1, and platelets of 240,000. Sodium 140, potassium 3.9, BUN 4, creatinine 0.6, with a glucose of 281. ABGs show pH is 7.36, with a pCO2 of 47, PO2 of 110, and bicarb 25.3. Lactate is 2.6. Chest x-ray, per radiologist, did not show any abnormality, although she does appear to have some infiltrates at the level of the right lower lobe with some atelectasis. ASSESSMENT AND PLAN: 1. Asthma exacerbation. Will give peak flows every 12 hours. DuoNeb every 2 hours as needed with Xopenex and Atrovent every 4 hours scheduled as she is tachycardic. steroids to taper. supplemental oxygen as needed. 2. Possible right lower lobe pneumonia with atelectasis. blood cultures x2. Start Rocephin and Zithromax, and further antibiotics will be culture driven. Incentive spirometer every 4 hours when awake. 3. Di[address]. [address] her on a soft diet, and monitor. 4. Diabetes mellitus type 2. Pattern blood glucose with sliding scale insulin. 5. Hypertension. identify her home medications, and continue as appropriate. 6. Hyperlipidemia. continue her home medications. 7. Gastroesophageal reflux disease. Proton pump inhibitor. 8. For deep venous thrombosis prophylaxis, Lovenox. Plan was discussed with Dr. Pino. Further treatments pending hospital course. Dictated by MERI Ma for Mark Noel MD cc: MERI Ma MD [facility]
[2019-01-15] MEDS: THEO-24 PO SCH (13:09)
[2019-01-16] MEDS: ATROVENT NEB INH SCH ×6 (03:22→23:15)
[2019-01-16] MEDS: XOPENEX NEB INH SCH ×6 (03:22→23:15)
[2019-01-16] MEDS: SOLU-MEDROL IV SCH ×2 (05:32→22:37)
[2019-01-16] MEDS: PRILOSEC PO SCH ×2 (05:32→06:07)
[2019-01-16 05:46] LABS: BASO# 0.01 X1000 (0.0-0.2); BASO% 0.2 % (0.0-0.8); EOS# 0.01 X1000 (0.0-0.7); EOS% 0.2 % (0.0-10.0); HEMATOCRIT 40.4 % (37.0-47.0); HEMOGLOBIN 13.1 g/dL (12.0-16.0); IMM GRAN# 0.03 X1000 (0.0-0.04); IMM GRAN% 0.5 % (0.0-0.5); LYMPH# 0.66 X1000 (1.2-3.4); LYMPH% 11.5 % (20.5-51.1); MCH 30.5 PG (27-31); MCHC 32.4 g/dL (33-37); MCV 94.2 FL (81-99); MONO# 0.38 X1000 (0.11-0.59); MONO% 6.6 % (1.7-9.3); MPV 9.2 FL (7.4-10.4); NEUT# 4.63 X1000 (1.4-6.5); PLT 250 X1000 (130-400); RBC 4.29 XMIL (4.2-5.4); RDW 14.2 % (11.5-14.5); WBC 5.72 X1000 (4.8-10.8)
[2019-01-16] MEDS: HUMALOG SUBQ SCH ×2 (05:59→11:44)
[2019-01-16 06:44] LABS: AGAP 14; ALB/GLOB RATIO 1.7; ALBUMIN 4.3 g/dL (3.5-5.0); ALKALINE PHOSPHATASE 54 U/L (32-104); BUN 7 mg/dL (8-22); CALCIUM 8.7 mg/dL (8.8-10.2); CHLORIDE 101 mmol/L (98-107); COSMO 288; CREATININE 0.5 mg/dL (0.5-0.9); ESTIMATED GFR > 60; GLUCOSE 293 mg/dL (70-104); GOT 10 U/L (10-30); GPT 11 U/L (10-36); MAGNESIUM 2.1 mg/dL (1.5-2.7); POTASSIUM 4.1 mmol/L (3.5-5.1); SODIUM 140 mmol/L (136-145); TCO2 25 mmol/L (25-35); TOTAL BILIRUBIN < 0.15 mg/dL (0.20-1.00); TOTAL PROTEIN 6.8 g/dL (6.3-8.3)
[2019-01-16] MEDS ORDERED: GLUCOPHAGE PO SCH (08:30)
--- NOTE | 2019-01-16 08:40 | PROGRESS NOTE ---
DATE: 01/16/2019 SUBJECTIVE: This patient seems to be doing better today. She is still having generalized wheezing, but she is breathing better and she is able to talk better. I will decrease the dose of the steroids from 60 q. 8 hours to 40 mg q. 8 hours, and hopefully tomorrow I will decrease it even more. OBJECTIVE: Vital Signs: Temperature 98.3 degrees, pulse 79, respiratory rate 16, blood pressure 140/81, oxygen saturation 99 on 3 L of nasal cannula. HEENT: Head normocephalic, no trauma. PERRLA. Neck: Supple. No JVD. No masses. Central trachea. Chest: Decreased breath sounds globally with prolonged expiratory phase and generalized wheezing, crepitus at the bases mostly on the right side. Abdomen: Soft, nontender, nondistended. No hepatosplenomegaly. Extremities: No edema, no clubbing, no cyanosis. Neurological examination: The patient is alert. She is oriented x3. No focal deficits. LABORATORY: WBC 5.7, hemoglobin 13.1, hematocrit 40.4, and platelets 250. Sodium 140, potassium 4.1, chloride 101, bicarbonate 25. BUN 7, creatinine 0.5, glucose 293, calcium 8.7, magnesium 2.1, albumin 4.3. ASSESSMENT AND PLAN: 1. Asthma exacerbation, likely due to an upper respiratory infection due to a virus. As per the patient, multiple family members at home are having runny nose and cough, myalgia, fever and chills. She also has been experiencing these kind of problems for the past few days. We will continue with breathing treatment. We will continue with oxygen supplementation and steroids. I do believe she has some infiltrates at the level of the right lower lobe, so probably this patient has had a superimposed bacterial infection/pneumonia. 2. Possible right lower lobe pneumonia. Continue with levofloxacin. 3. Diarrhea. We will put this patient on a soft diet. Will monitor. She is doing fine. 4. Type 2 diabetes. Continue pattern of blood sugar and sliding scale insulin. 5. Hypertension. Continue with the same management. 6. Hyperlipidemia. Continue home medication. 7. Gastroesophageal reflux disease. Continue proton pump inhibitors. 8. Deep vein thrombosis prophylaxis with Lovenox. Overall, this patient is doing a little bit better compared with yesterday. She is still having shortness of breath and wheezing. I do believe she can be transferred to the floor safely. cc: Mark Noel MD
[2019-01-16] MEDS: SINGULAIR PO SCH (09:00)
[2019-01-16] MEDS: COZAAR PO SCH (09:00)
[2019-01-16] MEDS ORDERED: DYAZIDE PO SCH (09:00)
[2019-01-16] MEDS ORDERED: PRAVACHOL PO SCH (09:00)
[2019-01-16] MEDS: THEO-24 PO SCH (09:01)
[2019-01-16] MEDS: LEVAQUIN 500 MG/D5W 500 MG/100 ML IVPB IV SCH (09:02)
[2019-01-16] MEDS ORDERED: SOLU-MEDROL IV SCH (14:00)
[2019-01-16] MEDS ORDERED: NS NEB INH SCH (15:30)
[2019-01-16] MEDS: DUONEB (A & A) INH PRN (15:41)
[2019-01-16] MEDS: GLUCOPHAGE PO SCH (17:13)
[2019-01-16] MEDS: PRAVACHOL PO SCH (22:37)
[2019-01-17] MEDS: XOPENEX NEB INH SCH ×6 (03:19→23:29)
[2019-01-17] MEDS: ATROVENT NEB INH SCH ×6 (03:19→23:29)
[2019-01-17] MEDS: SOLU-MEDROL IV SCH (04:54)
[2019-01-17] MEDS: PRILOSEC PO SCH (06:25)
[2019-01-17 07:33] LABS: HEMATOCRIT 41.3 % (37.0-47.0); HEMOGLOBIN 13.1 g/dL (12.0-16.0); MCH 30.3 PG (27-31); MCHC 31.7 g/dL (33-37); MCV 95.4 FL (81-99); MPV 9.4 FL (7.4-10.4); RBC 4.33 XMIL (4.2-5.4); RDW 14.5 % (11.5-14.5); WBC 8.66 X1000 (4.8-10.8)
[2019-01-17 08:23] LABS: AGAP 13; BUN 12 mg/dL (8-22); CALCIUM 9.5 mg/dL (8.8-10.2); CHLORIDE 98 mmol/L (98-107); COSMO 283; CREATININE 0.7 mg/dL (0.5-0.9); ESTIMATED GFR > 60; GLUCOSE 301 mg/dL (70-104); POTASSIUM 4.5 mmol/L (3.5-5.1); SODIUM 136 mmol/L (136-145); TCO2 25 mmol/L (25-35)
[2019-01-17] MEDS: SINGULAIR PO SCH (08:30)
[2019-01-17] MEDS: MAXZIDE-25 PO SCH (08:30)
[2019-01-17] MEDS: COZAAR PO SCH (08:30)
[2019-01-17] MEDS: GLUCOPHAGE PO SCH ×2 (08:30→17:02)
[2019-01-17] MEDS: THEO-24 PO SCH (08:31)
[2019-01-17] MEDS: JANUVIA PO SCH (08:31)
[2019-01-17] MEDS: LEVAQUIN 500 MG/D5W 500 MG/100 ML IVPB IV SCH (08:33)
[2019-01-17] MEDS ORDERED: LANTUS INSULIN SUBQ ONE (09:11)
[2019-01-17] MEDS: HUMULIN R SUBQ SCH ×3 (11:39→20:52)
[2019-01-17] MEDS: DUONEB (A & A) INH PRN ×2 (11:55→15:57)
--- NOTE | 2019-01-17 13:38 | PROGRESS NOTE ---
DATE: 01/17/2019 SUBJECTIVE: This patient seems to be doing better. I will stop the IV steroids and I will put her on p.o. treatment. She is still wheezing a little bit. She is still requiring oxygen. I will request physical therapy to work with this patient. OBJECTIVE: Vital Signs: Temperature 98.9 degrees, pulse 89, respiratory rate 18, blood pressure 127/84, oxygen saturation 97% on 2 L of nasal cannula. HEENT: Head normocephalic, no trauma. PERRLA. Neck: Supple. No JVD. No masses. Central trachea. Chest: Decreased breath sounds globally with prolonged expiratory phase and end-expiratory wheezing, crepitus mostly at the right side. Abdomen: Soft, nontender, nondistended. No hepatosplenomegaly. Extremities: No edema no clubbing no cyanosis. Neurological: The patient is alert she is oriented x3. No focal deficits. LABORATORY: WBC 8.6, hemoglobin 13.1, hematocrit 41.3, platelets 299,000. Sodium 139, potassium 4.5, chloride 98, bicarbonate 25, BUN 12, creatinine 0.7, glucose 301, calcium 9.5. ASSESSMENT AND PLAN: 1. Asthma exacerbation, likely due to an upper respiratory infection. Likely at the beginning was a viral infection and now she has a superimposed right lower lobe pneumonia. As per the patient multiple family members at home are having runny nose and cough, myalgia and fever. She also has been experiencing these kind of symptoms for a few days. I will continue with same management for now she is getting better. 2. Right lower lobe pneumonia continue with levofloxacin. 3. Diarrhea, improving. 4. Type 2 diabetes. I have decreased the dose of the steroids, which I believe is causing the increase of the blood sugar, I will give her a single dose of Lantus 15 today and I will continue with sliding scale insulin. 5. Hypertension continue with same management. 6. Hyperlipidemia continue home medications. 7. Gastroesophageal reflux disease. Continue proton pump inhibitors. 8. Deep vein thrombosis prophylaxis with Lovenox. PLAN: This patient is doing better I will continue with the same treatment for 1 more day. I have decreased the dose of the steroids. Hopefully this patient can be discharged tomorrow. cc: Mark Noel MD
[2019-01-17] MEDS: PRAVACHOL PO SCH (20:53)
[2019-01-18] MEDS: XOPENEX NEB INH SCH ×3 (04:22→11:49)
[2019-01-18] MEDS: ATROVENT NEB INH SCH ×3 (04:22→11:49)
[2019-01-18] MEDS: HUMULIN R SUBQ SCH ×2 (06:21→12:11)
[2019-01-18 07:22] LABS: AGAP 14; BUN 13 mg/dL (8-22); CALCIUM 9.6 mg/dL (8.8-10.2); CHLORIDE 98 mmol/L (98-107); COSMO 283; CREATININE 0.8 mg/dL (0.5-0.9); ESTIMATED GFR > 60; GLUCOSE 163 mg/dL (70-104); POTASSIUM 3.9 mmol/L (3.5-5.1); SODIUM 140 mmol/L (136-145); TCO2 28 mmol/L (25-35)
[2019-01-18] MEDS: LEVAQUIN 500 MG/D5W 500 MG/100 ML IVPB IV SCH (08:42)
[2019-01-18] MEDS: MAXZIDE-25 PO SCH (08:43)
[2019-01-18] MEDS: COZAAR PO SCH (08:44)
[2019-01-18] MEDS: JANUVIA PO SCH (08:44)
[2019-01-18] MEDS: THEO-24 PO SCH (08:44)
[2019-01-18] MEDS: SINGULAIR PO SCH (08:44)
[2019-01-18] MEDS: PRILOSEC PO SCH (08:44)
[2019-01-18] MEDS: GLUCOPHAGE PO SCH (08:45)
[2019-01-18] MEDS ORDERED: PREDNISONE PO SCH (09:00)
[2019-01-18 11:24] VITALS: BP 129/86
[2019-01-18] MEDS: DUONEB (A & A) INH PRN (11:48)
--- NOTE | 2019-01-19 05:15 | DISCHARGE SUMMARY ---
ADMISSION DATE: 01/15/2019 DISCHARGE DATE: 01/18/2019 DISCHARGE DIAGNOSES: 1. Asthma exacerbation. 2. Right lower lobe pneumonia. 3. Diarrhea, improved. 4. Type 2 diabetes. 5. Hypertension. 6. Hyperlipidemia. 7. Gastroesophageal reflux disease. PROCEDURES PERFORMED: Chest x-ray dated 01/15/2019. Impression: Stable chest. HOSPITAL COURSE: A 58-year-old female with a past medical history of asthma, presented to the emergency department with a chief complaint of shortness of breath at rest, dyspnea on exertion that started last Monday, 3 to 4 days before admission. As per the patient, she recently had the flu shot, also the patient reported multiple family members with upper respiratory infections that she has been in contact over the last week. She reported a clear runny nose and nonproductive cough. X-ray did not show any acute abnormality, but for me she does have some infiltrates at the right base and on my physical exam, she has some rhonchi. The patient was placed on breathing treatments, steroids, antibiotics, and oxygen supplementation. The patient was improving on a daily basis and we have been decreasing the steroids slowly as well. Today, this patient was not using oxygen and she was breathing much better. She still has a little bit of end-expiratory wheezing, but I will send this patient home with steroids, breathing treatment. She needs to go on a complete the course of antibiotics. She does not need insulin. She was tolerating p.o. and ambulating by herself. DISCHARGE PHYSICAL EXAMINATION: Vital signs: Temperature 98.1 degrees, pulse 89, respiratory rate 15, blood pressure 129/86, oxygen saturation 100% on 2 L of nasal cannula. HEENT: Head normocephalic, atraumatic. PERRLA. Neck: Supple. No JVD. No masses. Central trachea. Chest: Decreased breath sounds globally with prolonged expiratory phase and end-expiratory wheezing, faint, some crepitus at the right base. Abdomen: Soft, nontender, nondistended. No hepatosplenomegaly. Extremities: No edema, no clubbing, no cyanosis. Neurological: The patient is alert. She is oriented x3. No focal deficits. LABORATORY: Sodium 140, potassium 3.9, chloride 98, bicarbonate 28, BUN 13, creatinine 0.8. Glucose 163, calcium 9.6. Hemoglobin A1c 9. DISCHARGE MEDICATIONS: 1. DuoNeb 3 mL inhaler q.6 hours as needed. 2. Levofloxacin 500 mg p.o. daily. 3. Losartan 100 mg p.o. daily. 4. Metformin 1000 mg p.o. b.i.d. 5. Medrol Dosepak as directed. 6. Singulair 10 mg p.o. daily. 7. Omeprazole 40 mg p.o. daily. 8. Pravastatin 10 mg p.o. daily. 9. Januvia 100 mg p.o. daily. 10. Theophylline 400 mg p.o. daily. 11. Triamterene-hydrochlorothiazide 37.5-25 mg capsule p.o. daily. TIME SPENT: Discharging this patient 25 minutes. cc: Mark Noel MD
== END 2019-01-18 13:45 | disposition home or self-care (01) | DRG 190 ==
LOC: SUPCPDRO → ED 04:35 → 2N 04:36 → 3N 01-16 14:38
PROVIDERS: ATTEND Internal Medicine

== ENCOUNTER 2019-02-03 10:57 | Inpatient (IN) ==
[2019-02-03] MEDS ORDERED: NS 1,000 ML IV ONE ×3 (11:41→12:26)
[2019-02-03] MEDS ORDERED: FENTANYL IV ONE (11:42)
[2019-02-03] MEDS ORDERED: DUONEB (A & A) INH ONE (11:43)
[2019-02-03] MEDS ORDERED: SOLU-MEDROL IV ONE (11:43)
[2019-02-03] MEDS ORDERED: ZOSYN 4.5 GM in NS 100 ML IV ONE (11:44)
[2019-02-03] MEDS ORDERED: VANCOMYCIN 1 GM/NS 1 GM/250 ML IVPB IV ONE (11:44)
[2019-02-03 12:11] LABS: ALLEN TEST YES; BLOOD TYPE ARTERIAL; HCO3-(ACT) 23.3 mmoll (20.0-26.0); METHB 0.7 % (0.0-1.5); O2(CT) 19.8 mL/dL (15.0-23.0); O2HB 95.7 % (95.0-99.0); PCO2(98.6) 30 mmHg (35-45); PO2(98.6) 91 mmHg (60-100); SAMPLE BLOOD; SAO2 99.3 % (95.0-100.0); THB 14.7 g/dL (11.5-17.4); pH(98.6) 7.45 (7.35-7.45)
[2019-02-03 12:12] LABS: MODALITY ROOM AIR
[2019-02-03 12:36] LABS: BASO# 0.04 X1000 (0.0-0.2); BASO% 0.5 % (0.0-0.8); EOS% 1.4 % (0.0-10.0); HEMATOCRIT 44.2 % (37.0-47.0); HEMOGLOBIN 14.4 g/dL (12.0-16.0); LYMPH# 0.93 X1000 (1.2-3.4); LYMPH% 12.7 % (20.5-51.1); MCH 31.7 PG (27-31); MCHC 32.6 g/dL (33-37); MCV 97.4 FL (81-99); MONO# 0.35 X1000 (0.11-0.59); MONO% 4.8 % (1.7-9.3); MPV 9.9 FL (7.4-10.4); NEUT# 5.92 X1000 (1.4-6.5); NEUT% 80.6 % (42.2-75.2); PLT 212 X1000 (130-400); RBC 4.54 XMIL (4.2-5.4); WBC 7.34 X1000 (4.8-10.8)
[2019-02-03 13:20] LABS: AGAP 21; ALB/GLOB RATIO 2.5; ALKALINE PHOSPHATASE 56 U/L (32-104); BUN 7 mg/dL (8-22); CALCIUM 10.1 mg/dL (8.8-10.2); CHLORIDE 97 mmol/L (98-107); CK PROFILE 104 U/L (24-173); COSMO 276; CREATININE 0.7 mg/dL (0.5-0.9); ESTIMATED GFR > 60; GLUCOSE 182 mg/dL (70-104); GOT 11 U/L (10-30); GPT 11 U/L (10-36); POTASSIUM 4.4 mmol/L (3.5-5.1); SODIUM 137 mmol/L (136-145); TCO2 19 mmol/L (25-35); TOTAL BILIRUBIN 0.22 mg/dL (0.20-1.00)
[2019-02-03 13:36] LABS: URINE SOURCE CLEAN CATCH
[2019-02-03 13:40] LABS: BILIRUBIN URINE NEGATIVE (NEGATIVE); BLOOD URINE NEGATIVE (NEGATIVE); COLOR STRAW; GLUCOSE URINE >1000 mg/dL (NEGATIVE); KETONE URINE NEGATIVE (NEGATIVE); LEUKOCYTES URINE NEGATIVE (NEGATIVE); NITRITE URINE NEGATIVE (NEGATIVE); PH URINE 6.5; PROTEIN URINE NEGATIVE (NEGATIVE); SP GRAVITY URINE 1.011; TURBIDITY URINE CLEAR (CLEAR); UROBILINOGEN URINE NORMAL (NORMAL)
[2019-02-03 13:42] LABS: UR EPITHELIAL CELLS <10 /HPF (<10); URINE BACTERIA NEGATIVE /HPF; URINE RBC <10 /HPF (<10); URINE WBC <10 /HPF (<10)
--- NOTE | 2019-02-03 15:23 | EKG Report ---
Test Performed on : 02/03/2019 12:24:38 PM Test Reason : cp Blood Pressure : / mmHG Vent. Rate : 107 BPM Atrial Rate : 107 BPM P-R Int : 132 ms QRS Dur : 078 ms QT Int : 346 ms P-R-T Axes : 075 074 069 degrees QTc Int : [address] elevation, consider early repolarization, pericarditis, or injury Abnormal ECG When compared with ECG of 15-JAN-2019 04:46, (Unconfirmed) No significant change was found Unconfirmed Result
--- NOTE | 2019-02-03 15:27 | Diag Imaging Result Doc PS360 ---
CT ANGIOGRM PULMONARY ARTERIES - 02/03/2019 INDICATION: left posterior chest pain/SOB TECHNIQUE: Axial CT images were obtained after administering intravenous contrast. Coronal MIP images were generated. COMPARISON: None FINDINGS: There is no pulmonary embolism. Heart and great vessels are normal. No adenopathy. Upper abdominal images are unremarkable. There is moderate pulmonary fibrosis peripherally. No infiltrates or edema. Airways are clear. Bones are intact and well mineralized. IMPRESSION: Pulmonary fibrosis. No acute disease. This exam was performed using automated exposure control, adjustment of mA or kV according to patient size, and/or use of iterative reconstruction technique Electronically signed by Micheal Barron 02/03/2019 3:24 PM
[2019-02-03] MEDS ORDERED: PULMICORT INH ONE (16:14)
--- NOTE | 2019-02-03 16:15 | PROVIDER DOCUMENTATION ---
This chart was entered by Ilda Moise Scribe, acting as scribe for Slade Barraza MD. HPI-Respiratory General - General Chief Complaint: Shortness of Breath Stated Complaint: COUGH, ASTHMA PROBLEM CANT SLEEP Time Seen by Provider: 02/03/19 11:11 Source: patient Allergies/Adverse Reactions: Patient Allergies Allergy/AdvReac Type Severity Reaction Status Date / Time ibuprofen [From Advil] Allergy Intermediate SHORTNESS Verified 01/15/19 05:02 OF BREATH naproxen sodium * Allergy Intermediate SHORTNESS Verified 01/15/19 05:02 [From Aleve] OF BREATH morphine Allergy Mild "THE Verified 01/15/19 05:02 ULTIMATE DOOM" NSAIDS (Non-Steroidal Allergy SHORTNESS Verified 01/15/19 05:02 Anti-Inflamma OF BREATH Home Medications: Home Medication List Medication Instructions Recorded Confirmed Last Taken Type Losartan Potassium 100 mg PO DAILY 08/20/16 01/15/19 01/14/19 05:00 History Metformin HCl 1,000 mg PO BID 08/20/16 01/15/19 01/14/19 15:00 History Omeprazole 40 mg PO DAILY 08/20/16 01/15/19 01/14/19 05:00 History Pravastatin Sodium 10 mg PO DAILY 08/20/16 01/15/19 01/14/19 05:00 History Theophylline Anhydrous 400 mg PO DAILY 08/20/16 01/15/19 01/14/19 05:00 History [Theophylline] Triamterene/Hydrochlorothiazid 37.5 mg PO DAILY 08/20/16 01/15/19 01/14/19 05:00 History [Triamterene-Hctz 37.5-25 mg Cp] Montelukast Sodium [Singulair] 10 mg PO DAILY 05/07/18 01/15/19 01/14/19 15:00 History Sitagliptin Phosphate [Januvia] 100 mg PO DAILY 08/22/18 01/15/19 01/14/19 05:00 History Albuterol 2.5MG/Ipratrop 0.5MG 3 ml INH Q6H PRN PRN 01/15/19 01/15/19 01/15/19 03:30 History [Duoneb (A & A)] Levofloxacin [Levaquin] 500 mg PO DAILY #3 tab 01/18/19 Unknown Rx Methylprednisolone [Medrol Dosepak] 4 mg PO DIRECTED #1 pkg 01/18/19 Unknown Rx - History of Present Illness-Resp Nature of Presenting Problem: Patient is a 58 year old female who presents with shortness of breath. States cough, left lower back pain, fatigue, fever, chills, nausea and vomiting with shortness of breath. Reports symptoms have been present since being admitted on 01-19-19. History of pneumonia. States she is currently on an antibiotic. Denies being on steroids. Quality of Pain: reports: aching Severity in ED: reports: mild Onset/Duration: reports: other (2 weeks) Timing: reports: still present Cough Quality/Degree: reports: moderate, productive cough, sputum (clear) Associated Symptoms: reports: cough, fever/chills (fever and chills), shortness of breath, other (nausea, vomiting, left lower back pain, and fatigue) Similar Symptoms Previously?: Yes Recently seen or treated by another doctor?: Yes Review of Systems - Adult - REVIEW OF SYSTEMS - ADULT Constitutional: reports: see HPI, chills, fever, fatique Eyes: reports: no symptoms reported Ears, Nose, Mouth & Throat: reports: no symptoms reported Cardiovascular: reports: no symptoms reported Respiratory: reports: see HPI, cough, shortness of breath. denies: hemoptysis Gastrointestinal: reports: see HPI, nausea, vomiting. denies: abdominal pain Genitourinary: reports: no symptoms reported Musculoskeletal: reports: see HPI, back pain (left lower back pain). denies: muscle weakness, neck pain Integumentary: reports: no symptoms reported Neurological: reports: no symptoms reported Psychiatric: reports: no symptoms reported Endocrine: reports: no symptoms reported Hematologic/Lymphatic: reports: no symptoms reported Allergic/Immunologic: reports: no symptoms reported All Other Systems: Reviewed and Negative Past History - Adult - PAST MEDICAL HISTORY-ADULT Review of Records: reports: Old Records Reviewed, Nursing Assessment Review, Medications Reviewed, Social history reviewed & non-contributory. Major Childhood Illnesses: reports: denies history Cardiovascular: reports: HTN, hyperlipidemia Respiratory: reports: asthma, COPD Gastrointestinal: reports: GERD Obstetrical/Gynecological: reports: denies history Genitourinary: reports: denies history Musculoskeletal: reports: arthritis, chronic pain Neurological: reports: denies history Psychiatric: reports: anxiety, depression Endocrine/Immune: reports: Diabetes Other Conditions: reports: denies history - PRIOR SURGERIES/PROCEDURES Surgical/Procedure History: reports: reviewed, not pertinent, other (hemr rhoidectomy) - IMMUNIZATION STATUS Childhood Immunizations: See Nurse Assessment Flu Vaccine: See Nurse Assessment - FAMILY HISTORY Family History: reviewed, not pertinent - SOCIAL HISTORY Smoking: denies Substance Use: alcohol Alcohol Use Frequency: rarely Physical Exam-General - PHYSICAL EXAM-ADULT Initial Vital Signs Reviewed: Yes - CONSTITUTIONAL General Appearance: alert, no apparent distress. negative: lethargic - HEAD, EARS, NOSE, MOUTH & THROAT HENMT: normocephalic/atraumatic, moist mucous membranes. negative: angioedema - RESPIRATORY Respiratory: chest non-tender, rhonchi (bilaterally. left worse than right), wheezing (inspiratory and expiratory). negative: respiratory distress, increased rate - CARDIOVASCULAR Cardiovascular: normal peripheral pulses, regular rate, rhythm. negative: tachycardia - GASTROINTESTINAL (ABDOMEN) Abdominal Exam: normal bowel sounds, non tender, soft. negative: guarding - MUSCULOSKELETAL Back Exam: no vertebral tenderness, other (left lower posterior chest wall tenderness about costovertebral angle.). negative: ecchymosis Extremity: normal inspection. negative: erythema, pedal edema - SKIN Integumentary: normal color, normal turgor, warm/dry. negative: diaphoresis, pallor - NEUROLOGIC Neurologic: grossly normal. negative: aphasia, facial droop - PSYCHIATRIC Psych/Mental Status: normal mood/affect, oriented x 3. negative: anxious Progress - PLAN OF CARE/RESULTS Progress/Plan/Lab Results: Vital Signs - 8 hr 02/03/19 11:04 02/03/19 12:43 Temperature 98.3 F Pulse Rate 110 H 110 H Respiratory Rate 20 18 Blood Pressure 139/82 O2 Sat by Pulse Oximetry 96 98 Bedside Urine ED: Urine Bedside Start: 02/03/19 11:18 Freq: NOW Status: Complete Protocol: Activity Type Activity Date Activity User E-Sign Co-Sign Detail Recorded Client Recorded Date Recorded By Document 02/03/19 11:19 [id number] 02/03/19 11:19 [id number] Edit Status 02/03/19 11:26 [id number] Active=>Complete [id number] 02/03/19 11:26 [id number] 02/03/19 11:19 Point of Care [Bedside Point of Care] -Lot # [id number] - Results Negative -Control Line Visible? Yes ED: Urine Bedside Start: 02/03/19 11:40 Freq: ORDERED Status: Inactive Protocol: Activity Type Activity Date Activity User E-Sign Co-Sign Detail Recorded Client Recorded Date Recorded By Edit Status 02/03/19 12:35 [email or web address] Active=>Inactive [id number] 02/03/19 12:35 [email or web address] 02/03/19 13:24 - Final Sputum Laboratory Results - last 24 hr 02/03/19 02/03/19 02/03/19 12:02 12:20 12:20 WBC 7.34 RBC 4.54 Hgb 14.4 Hct 44.2 MCV 97.4 MCH 31.7 H MCHC 32.6 L RDW Std Deviation 15.0 H Plt Count 212 MPV 9.9 Neut % (Auto) 80.6 H Lymph % (Auto) 12.7 L Lamar % (Auto) 4.8 Eos % (Auto) 1.4 Baso % (Auto) 0.5 Neut # (Auto) 5.92 Lymph # (Auto) 0.93 L Lamar # (Auto) 0.35 Eos # (Auto) 0.10 Baso # (Auto) 0.04 Specimen Type ARTERIAL Sample Site L RADIAL pH 7.45 pCO2 30 L pO2 91 HCO3 23.3 Base Excess -2.0 Oxyhemoglobin 95.7 ABG O2 Sat (Calculated) 19.8 ABG O2 Saturation 99.3 ABG Carboxyhemoglobin 2.90 H ABG Methemoglobin 0.7 Preet Test YES A-a O2 Difference 21.0 Total Hemoglobin 14.7 Lactate 5.40 H* Liter Flow 0.0 Blood Gas Modality ROOM AIR FiO2 % 21.0 Sodium 137 Potassium 4.4 Chloride 97 L Carbon Dioxide 19 L Anion Gap 21 BUN 7 L Creatinine 0.7 Estimated GFR/1.73 m2 > 60 BUN/Creatinine Ratio 10 Glucose 182 H Calculated Osmolality 276 Calcium 10.1 Total Bilirubin 0.22 AST 11 ALT 11 Alkaline Phosphatase 56 Creatine Kinase 104 Troponin T Plu-T-Otpmlallygh Pept Total Protein 7.0 Albumin 5.0 Globulin 2.0 Albumin/Globulin Ratio 2.5 Plasma Lactate Urine Source Urine Color Urine Turbidity Urine pH Ur Specific [place] Urine Protein Ur Glucose (Stick) Ur Ketones (Stick) Urine Blood Urine Nitrite Urine Bilirubin Urobilinogen Dipstick Urine Leukocytes Urine WBC (Auto) Urine RBC (Auto) U Epithel Cells (Auto) Urine Bacteria (Auto) 02/03/19 02/03/19 02/03/19 12:20 12:20 12:20 WBC RBC Hgb Hct MCV MCH MCHC RDW Std Deviation Plt Count MPV Neut % (Auto) Lymph % (Auto) Lamar % (Auto) Eos % (Auto) Baso % (Auto) Neut # (Auto) Lymph # (Auto) Lamar # (Auto) Eos # (Auto) Baso # (Auto) Specimen Type Sample Site pH pCO2 pO2 HCO3 Base Excess Oxyhemoglobin ABG O2 Sat (Calculated) ABG O2 Saturation ABG Carboxyhemoglobin ABG Methemoglobin Preet Test A-a O2 Difference Total Hemoglobin Lactate Liter Flow Blood Gas Modality FiO2 % Sodium Potassium Chloride Carbon Dioxide Anion Gap BUN Creatinine Estimated GFR/1.73 m2 BUN/Creatinine Ratio Glucose Calculated Osmolality Calcium Total Bilirubin AST ALT Alkaline Phosphatase Creatine Kinase Troponin T < 0.010 Qaj-O-Ttohvgsyrqi Pept < 5 L Total Protein Albumin Globulin Albumin/Globulin Ratio Plasma Lactate 4.8 H* Urine Source Urine Color Urine Turbidity Urine pH Ur Specific [place] Urine Protein Ur Glucose (Stick) Ur Ketones (Stick) Urine Blood Urine Nitrite Urine Bilirubin Urobilinogen Dipstick Urine Leukocytes Urine WBC (Auto) Urine RBC (Auto) U Epithel Cells (Auto) Urine Bacteria (Auto) 02/03/19 13:22 WBC RBC Hgb Hct MCV MCH MCHC RDW Std Deviation Plt Count MPV Neut % (Auto) Lymph % (Auto) Lamar % (Auto) Eos % (Auto) Baso % (Auto) Neut # (Auto) Lymph # (Auto) Lamar # (Auto) Eos # (Auto) Baso # (Auto) Specimen Type Sample Site pH pCO2 pO2 HCO3 Base Excess Oxyhemoglobin ABG O2 Sat (Calculated) ABG O2 Saturation ABG Carboxyhemoglobin ABG Methemoglobin Preet Test A-a O2 Difference Total Hemoglobin Lactate Liter Flow Blood Gas Modality FiO2 % Sodium Potassium Chloride Carbon Dioxide Anion Gap BUN Creatinine Estimated GFR/1.73 m2 BUN/Creatinine Ratio Glucose Calculated Osmolality Calcium Total Bilirubin AST ALT Alkaline Phosphatase Creatine Kinase Troponin T Lsa-J-Dwlzstvzdai Pept Total Protein Albumin Globulin Albumin/Globulin Ratio Plasma Lactate Urine Source CLEAN CATCH Urine Color STRAW Urine Turbidity CLEAR Urine pH 6.5 Ur Specific [place] 1.011 Urine Protein NEGATIVE Ur Glucose (Stick) >1000 A Ur Ketones (Stick) NEGATIVE Urine Blood NEGATIVE Urine Nitrite NEGATIVE Urine Bilirubin NEGATIVE Urobilinogen Dipstick NORMAL Urine Leukocytes NEGATIVE Urine WBC (Auto) <10 Urine RBC (Auto) <10 U Epithel Cells (Auto) <10 Urine Bacteria (Auto) NEGATIVE Orders Category Date Time Status ED: Urine Bedside NOW Care 02/03/19 11:18 Completed Nursing- Obtain EKG once Care 02/03/19 11:40 Active Saline Loc NOW Care 02/03/19 11:[address] ANGIOGRM PULMONARY ARTERIES [CT] Stat Exams 02/03/19 11:41 Completed ABG [RESP] Routine Lab 02/03/19 12:02 Completed BLOOD CULTURE [BLDCUL] Stat Lab 02/03/19 12:17 Results CBC WITH ELECTRONIC DIFF [HEME] Stat Lab 02/03/19 12:20 Completed CK PROFILE [SP CHEM] Stat Lab 02/03/19 12:20 Completed COMPREHENSIVE METABOLIC PANEL [CHEM] Stat Lab 02/03/19 12:20 Completed LACTATE, PLASMA [CHEM] Stat Lab 02/03/19 12:20 Completed PRO B-NATRIURETIC PEPTIDE Stat Lab 02/03/19 12:20 Completed SPUTUM CULTURE WITH GRAM STAIN [RM] Routine Lab 02/03/19 13:24 Results THEOPHYLLINE [HH] Stat Lab 02/03/19 12:58 Received TROPONIN T Stat Lab 02/03/19 12:20 Completed URINALYSIS W/POSS RFLX CULT [URINALYSIS] Stat Lab 02/03/19 13:22 Completed 0.9% Sodium Chloride Inj [Ns] 1,000 ml Med 02/03/19 11:41 Discontinued IV 999 mls/hr 0.9% Sodium Chloride Inj [Ns] 1,000 ml Med 02/03/19 12:26 Discontinued IV 999 mls/hr 0.9% Sodium Chloride Inj [Ns] 1,000 ml Med 02/03/19 12:26 Discontinued IV 999 mls/hr Albuterol 2.5MG/Ipratrop 0.5MG [Duoneb (A & A)] Med 02/03/19 11:43 Discontin ued 9 ml INH NOW ONE Fentanyl Med 02/03/19 11:42 Discontinued 25 microgm IV NOW ONE Methylprednisolone Sod Succ [Solu-Medrol] Med 02/03/19 11:43 Discontinued 125 mg IV NOW ONE Piperacillin/Tazobactam [Zosyn] 4.5 gm Med 02/03/19 11:44 Discontinued 0.9% Sodium Chloride Inj [Ns] 100 ml IV NOW Vancomycin 1 gm/Ns Med 02/03/19 11:44 Discontinued 1 gm in 250 ml IV NOW Aerosol Treatments Routine Oth 02/03/19 11:43 Completed Aerosol Treatments Stat Oth 02/03/19 11:43 Completed EKG [EKG] Stat Ther 02/03/19 11:40 Draft Result Diagrams: 02/03/19 12:20 02/03/19 12:20 - REASSESSMENT Reassessment #1 Time Reassessed: 13:53 Status: improving (GIven iVF and pain meds. Also givne duoneb x 3, solumedrol. Cultured. Awaiting CT chest. Luna's lactic acidosis is likely due to metformin and januvia) Reassessment #2 Time Reassessed: 16:11 Status: improving (still wheezing despite meds, multiple nebs. States feels minimally better.) - EKG 1 Time of EKG reading by physician:: 12:24 EKG Read and Signed by:: Slade Barraza EKG Interpretation (*Must complete 3 of following elements*): Abnormal Rate: 107 Rhythm: sinus tachycardia [place]: normal SC Interval: normal Comments: poor R-wave progression, NSSTTWC, artifact present - CT/MRI 1 CT Study: Angiogram Impression: See EMR Report ( CT ANGIOGRM PULMONARY ARTERIES - 02/03/2019 INDICATION: left posterior chest pain/SOB TECHNIQUE: Axial CT images were obtained after administering intravenous contrast. Coronal MIP images were generated. COMPARISON: None FINDINGS: There is no pulmonary embolism. Heart and great vessels are normal. No adenopathy. Upper abdominal images are unremarkable. There is moderate pulmonary fibrosis peripherally. No infiltrates or edema. Airways are clear. Bones are intact and well mineralized. IMPRESSION: Pulmonary fibrosis. No acute disease. This exam was performed using automated exposure control, adjustment of mA or kV according to patient size, and/or use of iterative reconstruction technique Electronically signed by Micheal Barron 02/03/2019 3:24 PM 02/03/19 1537 Interpreting Physician: Micheal Barron MD Dictated Date/Time: 02/03/19 2393 cc: Slade Barraza MD; Luke Cordoba MD) - CONSULTS/PCP/HOSPITALIST Notification #1 *Consult/PCP/Hospitalist*: MERI Tran for Hospitalist Time Discussed: 16:04 Reason/Comments: Dr. Barraza consulted with [place] about patient. Consult Disposition: Will see in ED, Admit Departure - Departure Date of Disposition Decision: 02/03/19 Time of Disposition Decision: 16:04 DIAGNOSIS: COPD with acute exacerbation, Upper back pain on left side, Diabetes mellitus with lactic acidosis without coma Disposition: ADMITTED INPATIENT 09 Certified Medical Emergency: Emergent Condition: Fair Referrals and Follow-Ups: Luke Cordoba MD [Primary Care Provider] - - Critical Care Note This patient required my direct & personal management of CC.: Yes Total Time (mins): 40 (Mult meds for COPD exacerbation, evaluation for possible sepsis, review of records, discussion with patient) Critical Care Statement: This patient required my direct personal management to treat or rule out processes, the absence of which, could potentiallly result in sudden, clinically significant life or limb threatening deterioration. Attestation - Physician/ ELDA Attestation Patient care was provided by Advanced Practice Provider:: No The physician spent face to face time with patient:: Yes Advanced Practice Provider documentation review:: Supervising physician onsite and consulted in the evaluation and care of this patient. The physician did have a face to face encounter with the patient. This chart was documented by the indicated scribe, (Ilda Moise Scribe) and accurately reflects the services I performed and decisions made by me, Slade Barraza MD, as attested by the provider's signature.
[2019-02-03] MEDS ORDERED: ZOFRAN IV PRN (16:41)
[2019-02-03] MEDS ORDERED: DUONEB (A & A) INH PRN (16:41)
[2019-02-03] MEDS ORDERED: NS 1,000 ML IV SCH (16:41)
[2019-02-03] MEDS: DUONEB (A & A) INH SCH ×3 (17:21→22:32)
[2019-02-03] MEDS ORDERED: PULMICORT ONE ×2 (17:28)
--- NOTE | 2019-02-03 17:35 | HISTORY AND PHYSICAL ---
CHIEF COMPLAINT: Shortness of breath, wheezing, generalized weakness. HISTORY OF PRESENT ILLNESS: A 58-year-old female with past medical history of asthma, type 2 diabetes, hypertension, hyperlipidemia, anxiety presented to the emergency department with a chief complaint of increasing shortness of breath at rest and on exertion, she was recently discharged from this hospital on 01/18/2019, as per the patient she was feeling fine upon discharge but then when she went home she started feeling again short of breath that has been increasing slowly, she went to her primary care doctor on 03/30/2018 and he stopped the theophylline and put this patient on Breo but this patient is still feeling short of breath to the point that she needed to come to the emergency department. Previously she was treated for pneumonia that basically has resolved, in the emergency department she was found to be tachycardic, she was placed on oxygen supplementation. Leukocyte count is normal but the lactate level is high and actually I checked back her lactate level since 2014 and has been always high, I do believe this is related to medications, especially metformin which I will stop. This patient will be admitted to the medical floor. She will be placed on breathing treatment. She will be placed on her home medications and also steroids, she was told by her primary care doctor that she will need to be seen by a wood veneer taper and probably I will do it during this hospitalization, CT angiogram of the chest has been done and showed pulmonary fibrosis but no acute disease, no pulmonary embolism, no adenopathy, no infiltrates or edema. On physical exam this patient is wheezing bilaterally and she does have prolonged expiratory phase, we will hospitalize this patient on the medical floor and monitor this patient closely. REVIEW OF SYSTEM: As per the patient she has been losing weight recently. She does not know how much though. PAST SURGICAL HISTORY: Hemorrhoidectomy. PAST MEDICAL HISTORY: Asthma, sciatica, type 2 diabetes, hypertension, hyperlipidemia and anxiety. SOCIAL HISTORY: She quit smoking in 2007. She denies any alcohol or illicit drugs. She lives at home by herself. ALLERGIES: To morphine and NSAIDs which worsen her asthma apparently. FAMILY HISTORY: Notable for 2 type diabetes, asthma, heart disease in first-degree relatives. Like I mentioned before, she has been losing weight. She does not know exactly how much. She denies chest pain, syncope, palpitation, nausea, vomiting or diarrhea. PHYSICAL EXAMINATION: Temperature 97.6 degrees, pulse 110, respiratory rate 18, blood pressure 139/82, oxygen saturation 98 on 2 L of nasal cannula. HEENT: Head normocephalic, no trauma, PERRLA. NECK: Supple. No JVD. No masses. Central trachea. CHEST: Prolonged expiratory phase with some crepitus bilaterally and expiratory wheezing. ABDOMEN: Soft, nontender, nondistended. No hepatosplenomegaly. EXTREMITIES: No edema, no clubbing, no cyanosis. NEUROLOGICAL: The patient is alert, she is oriented x3. No focal neurological deficits. LABORATORY: WBC 7.3, hemoglobin 14.4, hematocrit 44.2, platelets 212,000. Sodium 137, potassium 4.4, chloride 97, bicarbonate 19, BUN 7, creatinine 0.7, glucose 182, calcium 10.1, plasma lactate 4.8. ASSESSMENT AND PLAN: 1. Asthma exacerbation versus chronic obstructive pulmonary disease exacerbation. Since this patient was a smoker before and she stopped smoking in 2007, I do believe at this point she needs a wood veneer taper to be able to perform a pulmonary function test as an outpatient. I will put this patient on breathing treatment, steroids, oxygen supplementation and pulmonary toilet. I will monitor this patient closely on the medical floor. 2. Type 2 diabetes. I will continue with sliding scale insulin, pattern of blood sugar and I will stop her metformin. I will continue though with her Januvia and Jardiance. 3. Hypertension. Continue home medications. 4. Hyperlipidemia. Continue home medications as well. 5. Gastroesophageal reflux disease. I will stop the omeprazole and put her on Pepcid p.o. 1. Deep vein thrombosis prophylaxis with Lovenox. 2. Further recommendations pending hospital course. cc: Mark Noel MD
[2019-02-03] MEDS: NS 1,000 ML IV SCH (18:50)
[2019-02-03] MEDS: LEVAQUIN 500 MG/D5W 500 MG/100 ML IVPB IV SCH (18:57)
[2019-02-03] MEDS: SOLU-MEDROL IV SCH (18:58)
[2019-02-03] MEDS: PEPCID PO SCH (20:20)
[2019-02-03] MEDS: HUMALOG SUBQ SCH (20:20)
[2019-02-03] MEDS: TYLENOL PO PRN (22:52)
[2019-02-04] MEDS: SOLU-MEDROL IV SCH ×3 (00:56→17:07)
[2019-02-04] MEDS: TESSALON PO PRN ×3 (00:56→21:11)
[2019-02-04] MEDS: DUONEB (A & A) INH SCH ×6 (03:28→23:09)
[2019-02-04] MEDS: HUMALOG SUBQ SCH ×4 (06:23→21:11)
[2019-02-04] MEDS: NS 1,000 ML IV SCH ×2 (06:47→08:34)
--- NOTE | 2019-02-04 07:17 | Diag Imaging Result Doc PS360 ---
EXAM: CHEST-PORTABLE 02/04/2019 HISTORY: short of breath TECHNIQUE: AP portable at 0600 COMMENT: The inspiration is less optimal than on 01/15/2019, however otherwise are has been no significant change in the appearance of the chest. IMPRESSION: No acute disease. Electronically signed by Ace Olivarez 02/04/2019 7:15 AM
[2019-02-04 07:37] LABS: HEMATOCRIT 41.8 % (37.0-47.0); HEMOGLOBIN 13.4 g/dL (12.0-16.0); IMM GRAN# 0.03 X1000 (0.0-0.04); IMM GRAN% 0.5 % (0.0-0.5); LYMPH# 0.51 X1000 (1.2-3.4); LYMPH% 9.2 % (20.5-51.1); MCH 30.5 PG (27-31); MCHC 32.1 g/dL (33-37); MONO# 0.13 X1000 (0.11-0.59); MONO% 2.3 % (1.7-9.3); MPV 9.7 FL (7.4-10.4); NEUT# 4.88 X1000 (1.4-6.5); PLT 223 X1000 (130-400); RDW 14.2 % (11.5-14.5); WBC 5.55 X1000 (4.8-10.8)
[2019-02-04 07:58] LABS: LYMPHS 16 % (21-51); MONO 2 % (1-9); SEGS 82 % (42-75)
[2019-02-04 08:13] LABS: AGAP 15; ALBUMIN 4.4 g/dL (3.5-5.0); ALKALINE PHOSPHATASE 54 U/L (32-104); BUN 11 mg/dL (8-22); CHLORIDE 100 mmol/L (98-107); COSMO 286; CREATININE 0.6 mg/dL (0.5-0.9); ESTIMATED GFR > 60; GLUCOSE 269 mg/dL (70-104); GOT 9 U/L (10-30); GPT 11 U/L (10-36); SODIUM 139 mmol/L (136-145); TCO2 24 mmol/L (25-35); TOTAL BILIRUBIN 0.22 mg/dL (0.20-1.00); TOTAL PROTEIN 6.6 g/dL (6.3-8.3)
[2019-02-04] MEDS: TYLENOL PO PRN ×3 (08:36→21:11)
[2019-02-04] MEDS: PEPCID PO SCH ×2 (08:36→21:11)
[2019-02-04] MEDS: JANUVIA PO SCH (08:36)
[2019-02-04] MEDS: COZAAR PO SCH (08:37)
[2019-02-04] MEDS: NON-FORMULARY MED (Empagliflozin [Jardiance] 10 MG) PO SCH (08:37)
[2019-02-04] MEDS: PRAVACHOL PO SCH (08:37)
[2019-02-04] MEDS: SINGULAIR PO SCH (08:37)
[2019-02-04] MEDS: DYAZIDE PO SCH (08:37)
[2019-02-04] MEDS: BREO ELLIPTA 200/25 MCG INH INH SCH (16:10)
--- NOTE | 2019-02-04 16:30 | PROGRESS NOTE ---
DATE: 02/04/2019 SUBJECTIVE: This patient seems to be feeling a little bit better today compared with yesterday. I will decrease a little bit the dose of the dose of the steroids from 80 mg to 60 mg every 8 hours. Her blood sugar has been elevated likely due to the steroid use. I have requested an evaluation by Pulmonary Department. This is the second time that this patient has an admission this month, and I am pretty sure that she was doing really good upon discharge on the 01/18/2019. OBJECTIVE: Vital Signs: Temperature 97.6 degrees, pulse 79, respiratory rate 22, blood pressure 136/81, oxygen saturation 100% on 2 L of nasal cannula. HEENT: Head normocephalic, no trauma PERRLA. Neck: Supple. No JVD. No masses. Central trachea. Chest: Prolonged expiratory phase with some crepitus bilaterally and expiratory wheezing. Abdomen: Soft, nontender, nondistended. No hepatosplenomegaly. Extremities: No edema, no clubbing, no cyanosis. Neurological: The patient is alert she is oriented x3. No focal deficits. LABORATORY: WBC 5.5, hemoglobin 13.4, hematocrit 41.8, platelets 223,000. Sodium 139, potassium 4, chloride 100, bicarbonate 24, BUN 11, creatinine 0.6 glucose 269, calcium 9, AST 9, ALT 11, alkaline phosphatase 54. ASSESSMENT AND PLAN: 1. Asthma exacerbation versus chronic obstructive pulmonary disease exacerbation. Since this patient was smoker before, she stopped smoking in 2007 I believe, pulmonary department has been consulted. Continue with same management. I will decrease just a little bit the steroids. 2. Type 2 diabetes. Continue sliding scale insulin and pattern of blood sugar. 3. Hypertension. Continue home medication. 4. Lactic acidosis, this has been a chronic issue, probably this is related to medications. I have stopped the metformin to see how she does. I will request a new lactic level in the morning. 5. Hyperlipidemia, continue home medications as well. 6. Gastroesophageal reflux disease. I have stopped the omeprazole and put her on Pepcid p.o. 7. Deep vein thrombosis prophylaxis with Lovenox. cc: Mark Noel MD
[2019-02-04] MEDS: LEVAQUIN 500 MG/D5W 500 MG/100 ML IVPB IV SCH (17:07)
[2019-02-05] MEDS: NS 1,000 ML IV SCH ×2 (00:10→14:09)
[2019-02-05] MEDS: SOLU-MEDROL IV SCH ×3 (01:01→15:50)
[2019-02-05] MEDS: DUONEB (A & A) INH SCH ×6 (03:28→23:07)
[2019-02-05] MEDS: HUMALOG SUBQ SCH ×4 (06:19→22:26)
[2019-02-05] MEDS: TYLENOL PO PRN ×2 (06:21→18:53)
--- NOTE | 2019-02-05 07:00 | PULMONOLOGY CONSULTATION ---
DATE: 02/04/2019 REQUESTING CLINICIAN: Dr. Pino. REASON FOR CONSULTATION: Recurrent asthma versus COPD with respiratory failure. HISTORY OF PRESENT ILLNESS: Ms. Fonseca is a 58-year-old white female with the onset of asthma as a child, 35 pack-year history for tobacco (nonsmoker times more than 8 years), who has been admitted to this hospital 5 times over the last year with diagnosis of asthma or COPD exacerbation. The patient reports she has previously undergone allergy testing, and is allergic to dogs, cats, and grasses. Her current medications include Ventolin, theophylline, and Singulair. Breo is listed, and indicates it was started 08/16/2018, but she reports she has not yet started this medicine. The patient has significant reflux both during the day and at night. She does eat in the evening, and sometimes will snack before going to bed. She previously had a head of her bed elevated, but recently has had to move in with her daughter in November, and her bed is not elevated. The patient reports increased cough, increased shortness of breath. And increased wheezing with occasional emesis over the last month. CT pulmonary angiogram was performed in the emergency room, which revealed mild peripheral emphysema/scarring, but no evidence of IPS and no evidence of acute disease or pulmonary embolism. PAST MEDICAL HISTORY: 1. Asthma/COPD overlap syndrome. 2. Gastroesophageal reflux disease. 3. Dyslipidemia. 4. Type 2 diabetes mellitus. 5. Anxiety disorder. 6. Status post hemorrhoidectomy. SOCIAL HISTORY: The patient reports she has not had any tobacco since 2007. No alcohol use. Currently lives with her daughter. FAMILY HISTORY: Noncontributory to current presentation. REVIEW OF SYSTEMS: As noted in the HPI, but is otherwise negative. PHYSICAL EXAMINATION: General: Reveals an obese black female with a BMI of 34 resting comfortably and in no distress. Vital Signs: BP 136/81, heart rate 79, respiratory rate 22, and oxygen saturation 99% on 2 L per nasal cannula. HEENT: Pupils are equal and reactive. Oropharynx appears clear. Neck: Supple. Chest: Reveals scattered wheezing bilaterally. Cardiac: S1, S2. Abdomen: Soft. Extremities: Without edema. LABORATORIES: CT scan as per HPI. Chest x-ray without evidence of acute disease. Sodium 139, potassium 4.0, chloride 100, bicarbonate 24, BUN 11, creatinine 0.6, and glucose 269. There has been no significant severe eosinophilia. She did have 5% eosinophils in November of this year. IMPRESSION: 1. A 58-year-old with asthma/chronic obstructive pulmonary disease overlap syndrome with an exacerbation. 2. Acute hypoxemic respiratory failure. 3. Morbid obesity. 4. Severe reflux. The patient's bed was previously elevated, but not currently. 5. Lack of adequate control of her medicines for her asthma. The patient was encouraged to obtain, and begin the Breo [address] Luke Mai. RECOMMENDATIONS: 1. Continue current steroids and bronchodilators for asthma exacerbation. 2. Encourage patient to begin a controller medicine such as Breo at the time of discharge. 3. Strict reflux precautions. The patient eat the smallest meal in the afternoon. She should not snack after supper. She should elevate the head of her bed. 4. Long-term patient would benefit from weight loss. cc: Amor Cline MD
[2019-02-05] MEDS: BREO ELLIPTA 200/25 MCG INH INH SCH (07:39)
[2019-02-05] MEDS: PEPCID PO SCH ×2 (08:26→22:26)
[2019-02-05] MEDS: DYAZIDE PO SCH (08:26)
[2019-02-05] MEDS: SINGULAIR PO SCH (08:26)
[2019-02-05] MEDS: PRAVACHOL PO SCH (08:26)
[2019-02-05] MEDS: COZAAR PO SCH (08:26)
[2019-02-05] MEDS: JANUVIA PO SCH (08:26)
[2019-02-05] MEDS: NON-FORMULARY MED (Empagliflozin [Jardiance] 10 MG) PO SCH (08:27)
[2019-02-05 08:44] LABS: AGAP 16; BUN 17 mg/dL (8-22); CALCIUM 9.5 mg/dL (8.8-10.2); CHLORIDE 103 mmol/L (98-107); COSMO 288; CREATININE 0.8 mg/dL (0.5-0.9); ESTIMATED GFR > 60; GLUCOSE 227 mg/dL (70-104); POTASSIUM 3.9 mmol/L (3.5-5.1); SODIUM 140 mmol/L (136-145); TCO2 21 mmol/L (25-35)
[2019-02-05] MEDS: TESSALON PO PRN (11:54)
--- NOTE | 2019-02-05 14:56 | PROGRESS NOTE ---
DATE: 02/05/2019 SUBJECTIVE: The patient seems to be feeling better today compared with yesterday. She is complaining of throat pain, but I checked her throat, and I do not see any new lesions. There is no plaques. I answered all of her questions. The wheezing seems to be getting better so I will go ahead and decrease the amount of steroids again from 60 q.8 hours to 40 q.8 hours, and I will monitor this patient closely. OBJECTIVE: Vital Signs: Temperature 98 degrees, pulse 84, respiratory rate 19, blood pressure 148/87, and oxygen saturation 94% on 2 L of nasal cannula. HEENT: Head normocephalic. No trauma. PERRLA. Neck: Supple. No JVD. No masses. Central trachea. Chest: Prolonged expiratory phase with some crepitus bilaterally and end expiratory wheezing. Abdomen: Soft, nontender, and nondistended. No hepatosplenomegaly. Extremities: No edema. No clubbing. No cyanosis. Neurological: The patient is alert and oriented x3. No focal deficits. LABORATORY: Sodium 140, potassium 3.9, chloride 103, bicarbonate 21, BUN 17, creatinine 0.8 glucose 227, and calcium 9.5. ASSESSMENT AND PLAN: 1. Asthma exacerbation versus COPD exacerbation. Probably, this patient has both. This patient was a smoker before. She stopped smoking in 2007. Pulmonary Department has been consulted. For now, we will continue with same management. She seems to be feeling better. I will decrease the dose of the steroids today. 2. Type 2 diabetes with hyperglycemia. Part of this hyperglycemia is due to steroids which we will monitor. 3. Hypertension. Continue home medication. 4. Lactic acidosis. This has been a chronic issue, probably related to medications. I have stopped the metformin to see how she does. The lactic acid level has been decreasing. 5. Hyperlipidemia. Continue home medications as well. 6. Gastroesophageal reflux disease. I have stopped the omeprazole and put her on Pepcid p.o. 7. Deep vein thrombosis prophylaxis with Lovenox. 8. The patient needs to avoid gastric reflux, especially during the night, and when she is sleeping. I talked to her about this. She should elevate the head of the bed, and also she needs to avoid late meals, she seems to understand. cc: Mark Noel MD [facility]
[2019-02-05] MEDS: LEVAQUIN 500 MG/D5W 500 MG/100 ML IVPB IV SCH (15:50)
[2019-02-06] MEDS: DUONEB (A & A) INH SCH ×6 (03:29→23:14)
[2019-02-06] MEDS: NS 1,000 ML IV SCH ×2 (04:59→21:55)
--- NOTE | 2019-02-06 06:32 | PULMONOLOGY PROGRESS NOTE ---
DATE: 02/05/2019 SUBJECTIVE: The patient is awake and alert. She reports her breathing has improved. OBJECTIVE: Vital Signs: The patient has been afebrile for the last 24 hours. Blood pressure 143/80, heart rate 86, respiratory rate 16, and oxygen saturation 99% on room air. HEENT: Pupils are equal and reactive. Oropharynx appears clear. Neck: Supple. Lungs: Chest reveals prolonged expiratory phase with wheezing. Cardiac: S1-S2. Abdomen: Obese and soft. Extremities: Without edema. IMPRESSION: A 58-year-old with: 1. Asthma/COPD overlap syndrome with exacerbation. 2. Acute hypoxemic respiratory failure, which has resolved. 3. Obesity. 4. Severe reflux. PLAN: 1. Continue current steroids and bronchodilators for asthma. 2. Strict reflux precautions were again discussed with this patient. 3. Recommend weight loss. 4. Anticipate discharge home soon. She should be discharged on Breo 200 1 puff each day along with a steroid taper and reinforcement for reflux precautions. cc: Amor Cline MD
[2019-02-06] MEDS: HUMALOG SUBQ SCH ×4 (06:55→21:43)
[2019-02-06] MEDS: BREO ELLIPTA 200/25 MCG INH INH SCH (07:48)
[2019-02-06 08:08] LABS: AGAP 13; BUN 16 mg/dL (8-22); CALCIUM 9.4 mg/dL (8.8-10.2); CHLORIDE 102 mmol/L (98-107); COSMO 282; CREATININE 0.7 mg/dL (0.5-0.9); ESTIMATED GFR > 60; GLUCOSE 193 mg/dL (70-104); POTASSIUM 3.9 mmol/L (3.5-5.1); SODIUM 138 mmol/L (136-145); TCO2 23 mmol/L (25-35)
[2019-02-06] MEDS: DYAZIDE PO SCH (09:05)
[2019-02-06] MEDS: PRAVACHOL PO SCH (09:05)
[2019-02-06] MEDS: SOLU-MEDROL IV SCH ×3 (09:05→16:08)
[2019-02-06] MEDS: SINGULAIR PO SCH (09:05)
[2019-02-06] MEDS: PEPCID PO SCH ×2 (09:06→21:43)
[2019-02-06] MEDS: COZAAR PO SCH (09:06)
[2019-02-06] MEDS: NON-FORMULARY MED (Empagliflozin [Jardiance] 10 MG) PO SCH (09:06)
[2019-02-06] MEDS: JANUVIA PO SCH (09:06)
[2019-02-06] MEDS: LEVAQUIN 500 MG/D5W 500 MG/100 ML IVPB IV SCH (16:08)
[2019-02-06] MEDS: TYLENOL PO PRN ×2 (16:14→22:30)
[2019-02-06] MEDS: MIRALAX PO SCH (16:15)
[2019-02-06] MEDS: TESSALON PO PRN (16:15)
[2019-02-07] MEDS: TESSALON PO PRN (00:59)
[2019-02-07] MEDS: DUONEB (A & A) INH SCH ×3 (03:29→11:10)
[2019-02-07] MEDS ORDERED: SOLU-MEDROL IV SCH (04:00)
--- NOTE | 2019-02-07 04:22 | PROGRESS NOTE ---
DATE: 02/06/2019 SUBJECTIVE: This patient is feeling better today. She is still having some mild wheezing. Hopefully tomorrow, I will discharge this patient home. I will decrease the dose of the steroids today again. OBJECTIVE: Vital signs: Temperature 98.2 degrees, pulse 76, respiratory rate 18, blood pressure 129/77, oxygen saturation 100% on room air. HEENT: Head normocephalic, no trauma. PERRLA. Neck supple. No JVD. No masses. Central trachea. Chest: Prolonged expiratory phase with some crepitus scattered at the bases and expiratory wheezing. Abdomen is soft, nontender, nondistended. No hepatosplenomegaly. Extremities: No edema, no clubbing. No cyanosis. Neurological: The patient is alert and oriented x3. No focal deficits. LABORATORY DATA: Sodium 138, potassium 3.9, chloride 102, bicarbonate 23, BUN 16, creatinine 0.7, glucose 193, calcium 9.4. ASSESSMENT AND PLAN: 1. Asthma exacerbation overlap with chronic obstructive pulmonary disease exacerbation. This patient was a smoker before. She stopped smoking in 2007. Pulmonary Department following this patient closely. Hopefully this patient will be discharged tomorrow. 2. Type 2 diabetes with hyperglycemia. Part of this hyperglycemia is due to steroids, which we will monitor. 3. Hypertension. We will continue home medication. 4. Lactic acidosis. This has been a chronic issue, probably related to medications. I have stopped the metformin to see how she does. Also I stopped the omeprazole. 5. Hyperlipidemia. Continue home medications as well. 6. Gastroesophageal reflux disease. I have stopped the omeprazole and put this patient on Pepcid p.o. This patient needs to avoid food especially during the night, at least 3 hours before sleeping. Also she needs to elevate the head of the bed. She seems to understand. 7. Deep venous thrombosis prophylaxis with Lovenox. cc: Mark Noel MD
[2019-02-07] MEDS: HUMALOG SUBQ SCH (06:41)
[2019-02-07] MEDS: TYLENOL PO PRN (07:08)
[2019-02-07] MEDS: BREO ELLIPTA 200/25 MCG INH INH SCH (07:43)
[2019-02-07 07:58] VITALS: BP 154/84
--- NOTE | 2019-02-07 08:31 | PULMONOLOGY PROGRESS NOTE ---
DATE: 02/06/2019 SUBJECTIVE: The patient is awake, alert and conversant. She reports she has had a good day. OBJECTIVE: Vital Signs: The patient has been afebrile for the last 24 hours. Blood pressure 129/77, heart rate 76, respiratory rate 18, oxygen saturation 100% on room air. HEENT: Pupils are equal and reactive. Oropharynx appears clear. Neck: Neck is supple. Chest: Reveals faint wheezing with excellent air flow in all lung lopez. Cardiac exam: S1, S2. Abdomen: Obese and soft. Extremities: Without edema. LABORATORIES: There are no new chemistries, CBC, chest x-ray or blood gases today. IMPRESSION: A 58-year-old with: 1. Asthma/chronic obstructive pulmonary disease overlap syndrome with continued improvement. 2. Obesity. 3. Reflux. 4. Hypoxemic respiratory failure, which has resolved. PLAN: 1. Recommend transitioning patient to oral steroids. 2. Recommend transitioning patient to oral antibiotics. 3. Okay for discharge 02/07/2019 in the morning if she continues to do well. cc: Amor Cline MD
[2019-02-07 09:01] LABS: BASO# 0.01 X1000 (0.0-0.2); BASO% 0.1 % (0.0-0.8); HEMATOCRIT 41.6 % (37.0-47.0); HEMOGLOBIN 13.5 g/dL (12.0-16.0); IMM GRAN# 0.08 X1000 (0.0-0.04); IMM GRAN% 1.1 % (0.0-0.5); LYMPH# 1.29 X1000 (1.2-3.4); LYMPH% 18.4 % (20.5-51.1); MCH 30.1 PG (27-31); MCHC 32.5 g/dL (33-37); MCV 92.9 FL (81-99); MONO# 0.52 X1000 (0.11-0.59); MONO% 7.4 % (1.7-9.3); MPV 9.9 FL (7.4-10.4); NEUT# 5.12 X1000 (1.4-6.5); PLT 273 X1000 (130-400); RBC 4.48 XMIL (4.2-5.4); RDW 13.6 % (11.5-14.5); WBC 7.02 X1000 (4.8-10.8)
[2019-02-07 09:07] LABS: AGAP 17; BUN 14 mg/dL (8-22); CALCIUM 9.6 mg/dL (8.8-10.2); CHLORIDE 100 mmol/L (98-107); COSMO 284; CREATININE 0.6 mg/dL (0.5-0.9); ESTIMATED GFR > 60; GLUCOSE 202 mg/dL (70-104); POTASSIUM 3.6 mmol/L (3.5-5.1); SODIUM 139 mmol/L (136-145); TCO2 22 mmol/L (25-35)
[2019-02-07] MEDS: PEPCID PO SCH (10:26)
[2019-02-07] MEDS: JANUVIA PO SCH (10:26)
[2019-02-07] MEDS: DYAZIDE PO SCH (10:26)
[2019-02-07] MEDS: PRAVACHOL PO SCH (10:26)
[2019-02-07] MEDS: SINGULAIR PO SCH (10:26)
[2019-02-07] MEDS: COZAAR PO SCH (10:27)
[2019-02-07] MEDS: MIRALAX PO SCH (10:27)
[2019-02-07] MEDS: NON-FORMULARY MED (Empagliflozin [Jardiance] 10 MG) PO SCH (10:27)
--- NOTE | 2019-02-08 21:10 | DISCHARGE SUMMARY ---
ADMISSION DATE: 02/03/2019 DISCHARGE DATE: 02/07/2019 DISCHARGE DIAGNOSES: 1. Asthma exacerbation overlapped with chronic obstructive pulmonary disease exacerbation. 2. Type 2 diabetes. 3. Hypertension. 4. Lactic acidosis, resolved. 5. Hyperlipidemia. 6. Gastroesophageal reflux disease. PROCEDURE PERFORMED: 1. Pulmonary arteriogram dated 02/03/2019 impression pulmonary fibrosis, no acute disease. 2. Chest x-ray dated 02/04/2019 impression no acute disease. CONSULTS: Pulmonary Department Dr. Cline. HOSPITAL COURSE: A 58-year-old female with a past medical history of asthma, type 2 diabetes, hypertension, hyperlipidemia, anxiety presented to the emergency department with a chief complaint of increasing shortness of breath at rest and on exertion, she was recently discharged from this hospital on 01/18/2019 and as per the patient she was feeling fine upon discharge but when she went home she started feeling short of breath again and that has been increasing slowly, she went to her primary care doctor on 03/30/2017 and he stopped the theophylline and put this patient on Breo but the patient is still feeling short of breath to the point that she needed to come to the hospital to the emergency department. Previously she was treated for pneumonia that was basically resolved. In the emergency department she was found to be tachycardic. She was placed on oxygen. The leukocyte count was normal but the lactate level was high and actually I checked back her lactate level since 2014 and it has been always high. I do believe it is related to medications, especially metformin which I stopped already. This patient was admitted to the medical floor and telemetry, I put her on steroids, breathing treatment and antibiotics. Pulmonary Department evaluated this patient and they agree with the treatment. We were concerned about her reflux disease can be triggering this exacerbations also, unfortunately this patient is allergic to grass, cats and dogs. This patient is feeling much better today. She will be discharged home, follow up with the primary care doctor in 1 week and also I recommended to follow up with Dr. Cline by Pulmonary Department soon. At the moment of discharge, this patient was in a stable medical condition tolerating p.o. and ambulating. She will be discharged with a short course of steroids and she will complete her treatment with antibiotics as well. Vital signs: Temperature 98.1 degrees, pulse 69, respiratory rate 12, blood pressure 154/84, oxygen saturation 100% on room air. HEENT: Head normocephalic, no trauma. PERRLA. Neck: Supple. No JVD. No masses. Central trachea. Chest: Clear to auscultation. Prolonged expiratory phase. No wheezing today. Abdomen: Soft, nontender, nondistended. No hepatosplenomegaly. Extremities: No edema, no clubbing, no cyanosis. Neurological: The patient is alert and oriented x3. No focal deficits. LABORATORY: WBC 7, hemoglobin 13.5, hematocrit 41.6, platelets 273,000. Sodium 139, potassium 3.6, chloride 100, bicarbonate 22, BUN 14, creatinine 0.6, glucose 202, calcium 9.6. DISCHARGE MEDICATIONS: Acetaminophen 350 mg p.o. q.6 hours as needed, DuoNeb 3 mL inhaler q.6 hours as needed, Ventolin HFA 2 to 4 puffs inhaled q.4 hours as needed, alprazolam 0.25 mg q.12 hours as needed for anxiety, Tessalon 100 mg p.o. t.i.d. as needed for cough, Jardiance 10 mg p.o. daily, famotidine 20 mg p.o. q.12 hours, Breo Ellipta 200/25 mcg inhaler daily, Atrovent 0.5 mg inhaler q.6 hours, levofloxacin 500 mg p.o. daily, losartan 100 mg p.o. daily, Medrol Dosepak as directed, Singulair 10 mg p.o. at bedtime, MiraLAX 17 g p.o. daily, pravastatin 10 mg p.o. daily, Januvia 100 mg p.o. daily and triamterene hydrochlorothiazide 37.5 mg p.o. daily. cc: Mark Noel MD
== END 2019-02-07 12:16 | disposition home or self-care (01) | DRG 191 ==
LOC: ED 10:57 → EDIPHOLD 16:36 → 3N 18:40
PROVIDERS: ATTEND Internal Medicine

== ENCOUNTER 2019-03-31 08:11 | Inpatient (IN) ==
[2019-03-31] MEDS ORDERED: DUONEB (A & A) INH ONE (08:55)
[2019-03-31] MEDS ORDERED: PULMICORT INH ONE (08:55)
[2019-03-31] MEDS ORDERED: ALBUTEROL NEB INH ONE (08:55)
[2019-03-31] MEDS ORDERED: SOLU-MEDROL IV ONE (08:55)
--- NOTE | 2019-03-31 09:00 | PROVIDER DOCUMENTATION ---
HPI-Respiratory General - General Chief Complaint: Asthma Attack Stated Complaint: ASTHMA ATTACK Time Seen by Provider: 03/31/19 08:43 Source: patient Allergies/Adverse Reactions: Patient Allergies Allergy/AdvReac Type Severity Reaction Status Date / Time ibuprofen [From Advil] Allergy Intermediate SHORTNESS Verified 01/15/19 05:02 OF BREATH naproxen sodium * Allergy Intermediate SHORTNESS Verified 01/15/19 05:02 [From Aleve] OF BREATH morphine Allergy Mild "THE Verified 01/15/19 05:02 ULTIMATE DOOM" NSAIDS (Non-Steroidal Allergy SHORTNESS Verified 01/15/19 05:02 Anti-Inflamma OF BREATH Home Medications: Home Medication List Medication Instructions Recorded Confirmed Last Taken Type Losartan Potassium 100 mg PO DAILY 08/20/16 03/31/19 02/03/19 07:00 History Pravastatin Sodium 10 mg PO DAILY 08/20/16 03/31/19 02/03/19 07:00 History Montelukast Sodium [Singulair] 10 mg PO DAILY 05/07/18 03/31/19 02/03/19 07:00 History Albuterol Sulfate [Ventolin Hfa] 2 - 4 puff IN Q4H PRN 02/03/19 03/31/19 02/03/19 07:15 History Empagliflozin [Jardiance] 10 mg PO DAILY 02/03/19 03/31/19 02/03/19 07:00 History Ipratropium [place] Neb [Atrovent 0.5 mg INH RTQ6H 02/03/19 03/31/19 Unknown History Neb] Albuterol Sulfate 1 inh INH Q6H 03/31/19 03/31/19 Unknown History Albuterol Sulfate [Ventolin Hfa] 03/31/19 03/31/19 Unknown History Fluticasone/Vilanterol [Breo 1 puff INH DAILY 03/31/19 03/31/19 Unknown History Ellipta 200-25 Mcg INH] Omeprazole 1 tab PO DAILY 03/31/19 03/31/19 Unknown History Triamterene/Hctz [Maxzide-25] 1 tab PO DAILY 03/31/19 03/31/19 Unknown History - History of Present Illness-Resp Nature of Presenting Problem: began with SOB and wheezing yesterday ~noon. No relief with her nebulized tx. No fever. Has had occ shrp CP, lasting only seconds. No other sx Review of Systems - Adult - REVIEW OF SYSTEMS - ADULT Constitutional: reports: no symptoms reported Eyes: reports: no symptoms reported Ears, Nose, Mouth & Throat: reports: no symptoms reported Cardiovascular: reports: no symptoms reported Respiratory: reports: see HPI Gastrointestinal: reports: no symptoms reported Genitourinary: reports: no symptoms reported Musculoskeletal: reports: no symptoms reported Neurological: reports: no symptoms reported Psychiatric: reports: no symptoms reported Endocrine: reports: no symptoms reported Hematologic/Lymphatic: reports: no symptoms reported Allergic/Immunologic: reports: no symptoms reported Past History - Adult - PAST MEDICAL HISTORY-ADULT Review of Records: reports: Medications Reviewed Major Childhood Illnesses: reports: denies history Cardiovascular: reports: HTN, hyperlipidemia Respiratory: reports: asthma, COPD Gastrointestinal: reports: denies history Obstetrical/Gynecological: reports: denies history Genitourinary: reports: denies history Musculoskeletal: reports: arthritis, chronic pain Neurological: reports: denies history Psychiatric: reports: anxiety, depression Endocrine/Immune: reports: Diabetes Other Conditions: reports: denies history - PRIOR SURGERIES/PROCEDURES Surgical/Procedure History: reports: reviewed, not pertinent, other (hemrrhoidectomy) - IMMUNIZATION STATUS Childhood Immunizations: See Nurse Assessment Flu Vaccine: See Nurse Assessment - FAMILY HISTORY Family History: reviewed, not pertinent - SOCIAL HISTORY Smoking: denies Physical Exam-General - PHYSICAL EXAM-ADULT Initial Vital Signs Reviewed: Yes - CONSTITUTIONAL General Appearance: appears well, alert, mild distress - EYES Eyes: PERRL/EOMI, pink conjunctivae - HEAD, EARS, NOSE, MOUTH & THROAT HENMT: moist mucous membranes, normal ENT inspection, pharynx normal - NECK Neck: full range of motion, supple, normal inspection - RESPIRATORY Respiratory: no pleuratic chest pain, respiratory distress (mild), decreased breath sounds (with coarse inspir and expir wheeze) - CARDIOVASCULAR Cardiovascular: tachycardia - GASTROINTESTINAL (ABDOMEN) Abdominal Exam: non tender, soft - MUSCULOSKELETAL Back Exam: normal inspection, no CVA tenderness, no vertebral tenderness Extremity: normal range of motion, non-tender, normal inspection, no pedal edema - SKIN Integumentary: normal color, normal turgor, warm/dry - NEUROLOGIC Neurologic: medical esthetician II-XII nml as tested, grossly normal, no motor/sensory deficits - PSYCHIATRIC Psych/Mental Status: normal mood/affect, normal thought content, normal thought process, oriented x 3 Progress - PLAN OF CARE/RESULTS Progress/Plan/Lab Results: Vital Signs - 8 hr 03/31/19 08:15 03/31/19 09:11 03/31/19 09:15 Temperature 98.9 F Pulse Rate 104 H 96 H 94 H Respiratory Rate 22 22 19 Blood Pressure 155/88 O2 Sat by Pulse Oximetry 94 L 98 100 03/31/19 09:16 03/31/19 10:19 Temperature Pulse Rate 99 H 102 H Respiratory Rate 17 15 Blood Pressure 167/111 138/92 O2 Sat by Pulse Oximetry 100 95 Laboratory Results - last 24 hr 03/31/19 03/31/19 08:47 08:47 WBC 6.12 RBC 4.67 Hgb 14.3 Hct 44.3 MCV 94.9 MCH 30.6 MCHC 32.3 L RDW Std Deviation 13.0 Plt Count 221 MPV 9.8 Immature Gran % (Auto) 0.0 Neut % (Auto) 48.7 Lymph % (Auto) 39.9 [place] % (Auto) 6.0 Eos % (Auto) 4.7 Baso % (Auto) 0.7 Immature Gran # (Auto) 0.00 Neut # (Auto) 2.98 Lymph # (Auto) 2.44 [place] # (Auto) 0.37 Eos # (Auto) 0.29 Baso # (Auto) 0.04 Sodium 139 Potassium 4.0 Chloride 98 Carbon Dioxide 26 Anion Gap 15 BUN 5 L Creatinine 0.6 Estimated GFR/1.73 m2 > 60 BUN/Creatinine Ratio 8 Glucose 180 H Calculated Osmolality 279 Calcium 9.6 Total Bilirubin 0.18 L AST 15 ALT 11 Alkaline Phosphatase 63 Total Protein 6.7 Albumin 4.1 Globulin 2.6 Albumin/Globulin Ratio 1.6 Orders Category Date Time Status CHEST-2 VIEWS [RAD] Stat Exams 03/31/19 08:55 Completed CBC WITH DIFF [HEME] Stat Lab 03/31/19 08:47 Completed COMPREHENSIVE METABOLIC PANEL [CHEM] Stat Lab 03/31/19 08:47 Completed Albuterol 2.5MG/Ipratrop 0.5MG [Duoneb (A & A)] Med 03/31/19 08:55 Discontinued 3 ml INH NOW ONE Albuterol [Albuterol Neb] Med 03/31/19 08:55 Discontinued 5 mg INH NOW ONE Budesonide [Pulmicort] Med 03/31/19 08:55 Discontinued 0.5 mg INH NOW ONE Methylprednisolone Sod Succ [Solu-Medrol] Med 03/31/19 08:55 Discontinued 125 mg IV NOW ONE Aerosol Treatments Routine Oth 03/31/19 08:59 Completed Aerosol Treatments Stat Oth 03/31/19 08:59 Completed EKG [EKG] Stat Ther 03/31/19 08:55 Ordered Result Diagrams: 03/31/19 08:47 03/31/19 08:47 - REASSESSMENT Reassessment #1 Time Reassessed: 11:00 (drops sats when removed from O2) Status: worsening - EKG 1 Time of EKG reading by physician:: 08:31 EKG Read and Signed by:: Victorino Balbuena EKG Interpretation (*Must complete 3 of following elements*): Normal Rate: 105 Rhythm: sinus tach QRS: normal [place] Interval: normal ST Wave: normal - CONSULTS/PCP/HOSPITALIST Notification #1 *Consult/PCP/Hospitalist*: Chelsea Time Discussed: 11:10 Consult Disposition: Will see in ED, Admit Departure - Departure Date of Disposition Decision: 03/31/19 Time of Disposition Decision: 11:10 DIAGNOSIS: COPD with acute exacerbation, Hypoxia Disposition: ADMITTED INPATIENT 09 Certified Medical Emergency: Emergent Condition: Good Referrals and Follow-Ups: Luke Cordoba MD [Primary Care Provider] - - Critical Care Note This patient required my direct & personal management of CC.: No Attestation - Physician/ ELDA Attestation Patient care was provided by Advanced Practice Provider:: No The physician spent face to face time with patient:: Yes Advanced Practice Provider documentation review:: Supervising physician onsite and consulted in the evaluation and care of this patient. The physician did have a face to face encounter with the patient.
[2019-03-31 09:13] LABS: BASO# 0.04 X1000 (0.0-0.2); BASO% 0.7 % (0.0-0.8); EOS# 0.29 X1000 (0.0-0.7); EOS% 4.7 % (0.0-10.0); HEMATOCRIT 44.3 % (37.0-47.0); HEMOGLOBIN 14.3 g/dL (12.0-16.0); LYMPH# 2.44 X1000 (1.2-3.4); LYMPH% 39.9 % (20.5-51.1); MCH 30.6 PG (27-31); MCHC 32.3 g/dL (33-37); MCV 94.9 FL (81-99); MONO# 0.37 X1000 (0.11-0.59); MPV 9.8 FL (7.4-10.4); NEUT# 2.98 X1000 (1.4-6.5); NEUT% 48.7 % (42.2-75.2); PLT 221 X1000 (130-400); RBC 4.67 XMIL (4.2-5.4); WBC 6.12 X1000 (4.8-10.8)
[2019-03-31 09:27] LABS: AGAP 15; ALB/GLOB RATIO 1.6; ALBUMIN 4.1 g/dL (3.5-5.0); ALKALINE PHOSPHATASE 63 U/L (32-104); BUN 5 mg/dL (8-22); CALCIUM 9.6 mg/dL (8.8-10.2); CHLORIDE 98 mmol/L (98-107); COSMO 279; CREATININE 0.6 mg/dL (0.5-0.9); ESTIMATED GFR > 60; GLUCOSE 180 mg/dL (70-104); GOT 15 U/L (10-30); GPT 11 U/L (10-36); SODIUM 139 mmol/L (136-145); TCO2 26 mmol/L (25-35); TOTAL BILIRUBIN 0.18 mg/dL (0.20-1.00); TOTAL PROTEIN 6.7 g/dL (6.3-8.3)
--- NOTE | 2019-03-31 10:33 | Diag Imaging Result Doc PS360 ---
EXAM: CHEST-2 VIEWS HISTORY: short of breath TECHNIQUE: Three views COMPARISON: 02/04/2019 FINDINGS: The lungs are hyperexpanded. The heart is not enlarged. The vessels are small. There are no infiltrates. No pleural effusions. IMPRESSION: Likely emphysema. No pneumonia. Electronically signed by Terry Aquino 03/31/2019 10:30 AM
[2019-03-31] MEDS ORDERED: DUONEB (A & A) INH PRN (12:58)
[2019-03-31] MEDS: MUCINEX PO SCH ×2 (13:16→20:53)
[2019-03-31] MEDS ORDERED: XANAX PO PRN (13:22)
--- NOTE | 2019-03-31 13:26 | EKG Report ---
Test Performed on : 03/31/2019 08:31:11 AM Test Reason : SOB Blood Pressure : / mmHG Vent. Rate : 105 BPM Atrial Rate : 105 BPM P-R Int : 140 ms QRS Dur : 068 ms QT Int : 348 ms P-R-T Axes : 081 076 056 degrees QTc Int : 459 ms Sinus tachycardia. Otherwise normal ECG When compared with ECG of 03-FEB-2019 12:24, (Unconfirmed) No significant change was found Unconfirmed Result
--- NOTE | 2019-03-31 14:30 | HISTORY AND PHYSICAL ---
PRIMARY CARE PROVIDER: Dr. Luke Cordoba. CHIEF COMPLAINT: Shortness of breath, wheezing, and cough. HISTORY OF PRESENT ILLNESS: Ms. Fonseca is a 58-year-old, female, well known to our service for multiple admissions for COPD exacerbation, type 2 diabetes, hypertension, hyperlipidemia, anxiety, who came to the ED complaining of increasing shortness of breath that started yesterday when the storms came in, wheezing, productive cough with clear sputum. There are no fever or chills, headache, chest pain, palpitations, abdominal pain, nausea, vomiting, diarrhea, or dysuria. 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 However, due to financial reasons, she had to cancel it, and has not made another appointment yet. She stated her home inhalers just were not cutting it for her, so she had to come to the ED to be evaluated. She was found to be in a COPD exacerbation. Chest x-ray shows likely emphysema. No pneumonia. No fever. No white count. She will be placed on aggressive pulmonary toilet, bronchodilators, supplemental O2, IV antibiotics, IV steroids. Will continue further treatment and management. REVIEW OF SYSTEMS: Complete and negative, except for those mentioned in the HPI. PAST SURGICAL HISTORY: Hemorrhoidectomy. PAST MEDICAL HISTORY: Per HPI. SOCIAL HISTORY: She quit smoking in 2007. No alcohol or illicit drug use. She lives at home by herself. ALLERGIES: Morphine, NSAIDs. FAMILY HISTORY: Type 2 diabetes, asthma, heart disease. PHYSICAL EXAMINATION: VITAL SIGNS: Temperature is 98.9 degrees, heart rate 104, respirations 22, blood pressure 155/88, O2 was initially 94% on room air, it is now 98% on 2 L. GENERAL: Ms. Fonseca is a pleasant, 58-year-old, female, who is sitting up on the stretcher, coughing. HEENT: Atraumatic, normocephalic. PERRL. NECK: Supple. Trachea midline. CARDIOVASCULAR: S1, S2 appreciated. No murmurs, gallops, or rubs noted. RESPIRATORY: Lung sounds. Inspiratory and expiratory wheezes. Crepitus bilaterally. ABDOMEN: Soft, nontender, nondistended. Positive bowel sounds to 4 quadrants. LOWER EXTREMITIES: Negative for edema. NEUROLOGIC: No focal deficits noted. IMAGING: Chest x-ray: Likely emphysema. No pneumonia. LABORATORY DATA: White count 6, hemoglobin and hematocrit 14 and 44, platelet count 221,000. Sodium 139, potassium 4.0, BUN 5, creatinine 0.6, blood glucose is 180. ASSESSMENT AND PLAN: 1. Asthma exacerbation with now probable chronic obstructive pulmonary disease exacerbation. Chest x-ray is now showing emphysema. We will continue her on supplemental oxygen, bronchodilators, intravenous steroids, intravenous antibiotics with Levaquin, bronchodilators, aggressive pulmonary toilet, add some guaifenesin for her cough. 2. Type 2 diabetes with hyperglycemia. We will continue her on her home regimen. Place her on sliding scale with pattern blood sugars. 3. Hyperlipidemia. Continue her pravastatin. 4. Hypertension. Continue home regimen. 5. Gastroesophageal reflux disease. Continue proton pump inhibitor. 6. Anxiety. Will continue Xanax as needed. Further recommendation to follow physician evaluation, laboratory data, and diagnostic data. Dictated by MERI Nino for Mark Noel MD cc: MD Luke Monk MD
[2019-03-31] MEDS: LEVAQUIN 500 MG in NS 100 ML IV SCH (14:41)
[2019-03-31] MEDS: SOLU-MEDROL IV SCH ×2 (14:50→20:53)
[2019-03-31] MEDS: DUONEB (A & A) INH SCH ×3 (16:23→23:25)
[2019-03-31] MEDS ORDERED: SOLU-MEDROL IV SCH (18:00)
[2019-03-31] MEDS: HUMALOG SUBQ SCH ×2 (18:30→20:53)
[2019-03-31] MEDS: TYLENOL PO PRN (20:53)
[2019-04-01] MEDS: DUONEB (A & A) INH SCH ×6 (03:17→23:23)
[2019-04-01] MEDS: SOLU-MEDROL IV SCH ×4 (03:48→19:13)
[2019-04-01] MEDS: TYLENOL PO PRN ×2 (03:48→16:11)
[2019-04-01] MEDS: HUMALOG SUBQ SCH ×4 (06:01→22:00)
--- NOTE | 2019-04-01 07:24 | Diag Imaging Result Doc PS360 ---
EXAM: CHEST-PORTABLE 04/01/2019 HISTORY: short of breath TECHNIQUE: AP portable at 0549 COMMENT: The inspiration is suboptimal. Compared to 03/31/2019 there has been no significant change. IMPRESSION: No acute disease. Electronically signed by Ace Olivarez 04/01/2019 7:22 AM
[2019-04-01 07:43] LABS: BASO# 0.01 X1000 (0.0-0.2); BASO% 0.1 % (0.0-0.8); HEMATOCRIT 42.4 % (37.0-47.0); HEMOGLOBIN 13.9 g/dL (12.0-16.0); IMM GRAN# 0.04 X1000 (0.0-0.04); IMM GRAN% 0.5 % (0.0-0.5); LYMPH# 0.81 X1000 (1.2-3.4); MCH 31.1 PG (27-31); MCHC 32.8 g/dL (33-37); MCV 94.9 FL (81-99); MONO# 0.16 X1000 (0.11-0.59); MPV 9.8 FL (7.4-10.4); NEUT# 7.07 X1000 (1.4-6.5); NEUT% 87.4 % (42.2-75.2); PLT 227 X1000 (130-400); RBC 4.47 XMIL (4.2-5.4); WBC 8.09 X1000 (4.8-10.8)
[2019-04-01] MEDS: BREO ELLIPTA 200/25 MCG INH INH SCH (07:45)
[2019-04-01 08:01] LABS: AGAP 14; ALB/GLOB RATIO 1.6; ALBUMIN 4.4 g/dL (3.5-5.0); ALKALINE PHOSPHATASE 66 U/L (32-104); BUN 14 mg/dL (8-22); CALCIUM 9.8 mg/dL (8.8-10.2); CHLORIDE 101 mmol/L (98-107); COSMO 284; CREATININE 0.6 mg/dL (0.5-0.9); ESTIMATED GFR > 60; GLUCOSE 275 mg/dL (70-104); GOT 11 U/L (10-30); GPT 11 U/L (10-36); POTASSIUM 4.1 mmol/L (3.5-5.1); SODIUM 137 mmol/L (136-145); TCO2 22 mmol/L (25-35); TOTAL PROTEIN 7.2 g/dL (6.3-8.3)
[2019-04-01 08:16] LABS: LYMPHS 12 % (21-51); MONO 3 % (1-9); SEGS 85 % (42-75)
[2019-04-01 08:17] LABS: HYPOCHROM 1+
--- NOTE | 2019-04-01 09:06 | HISTORY AND PHYSICAL ---
HISTORY OF PRESENT ILLNESS: The patient seen and examined by me [id number]. All of the laboratory, vital signs, and images were reviewed. The patient presented to the emergency department with chief complaint of shortness of breath. She actually has been hospitalized multiple times for the same issue. Yesterday, unfortunately during the storm she started having some shortness of breath and wheezing. She was discharged on 02/07/2019. She has right now asthma exacerbation overlapped with COPD exacerbation. Actually, the chest x-ray showed emphysema. She also has a history of type 2 diabetes, hypertension, hyperlipidemia, and GERD. PLAN: She is going to be placed on breathing treatment, antibiotics, steroids and her home medications with sliding scale insulin. Hopefully in a few day she is going to be discharged back home. I do believe she follows DR. Cline as an outpatient. cc: Mark Noel MD
[2019-04-01] MEDS: PRILOSEC PO SCH (09:41)
[2019-04-01] MEDS: MUCINEX PO SCH ×2 (09:41→20:26)
[2019-04-01] MEDS: COZAAR PO SCH (09:41)
[2019-04-01] MEDS: PRAVACHOL PO SCH (09:41)
[2019-04-01] MEDS: SINGULAIR PO SCH (09:41)
[2019-04-01] MEDS: NON-FORMULARY MED (Empagliflozin [Jardiance] 10 MG) PO SCH (09:41)
[2019-04-01] MEDS: MAXZIDE-25 PO SCH (09:42)
[2019-04-01] MEDS: GLUCOTROL XL PO SCH (11:09)
--- NOTE | 2019-04-01 11:58 | PROGRESS NOTE ---
DATE: 04/01/2019 SUBJECTIVE: This patient seems to be feeling better today. She is still wheezing bilaterally, but not like yesterday. I will decrease the dose of the steroids from 80 every 6 hours to 40 every 8 hours. I will continue to monitor. OBJECTIVE: Vital Signs: Temperature 98.3 degrees, pulse 100, respiratory rate 20, blood pressure 124/81, oxygen saturation 93% on room air. HEENT: Head normocephalic. No trauma. PERRLA. Neck: Supple. No JVD. No masses. Central trachea. Chest: Decreased breath sounds globally with prolonged expiratory phase and expiratory wheezing. Abdomen: Soft, nontender, nondistended. No hepatosplenomegaly. Extremities: No clubbing, no clubbing, no cyanosis. Neurological: The patient is awake, alert. She is oriented x3. No focal deficits. LABORATORY: WBC 8, hemoglobin 13.9, hematocrit 42.4, platelets 227,000. Sodium 137, potassium 4.1, chloride 101, bicarbonate 22, BUN 14, creatinine 0.6, glucose 275, calcium 9.8. ASSESSMENT AND PLAN: 1. Asthma exacerbation overlapped with chronic obstructive pulmonary disease exacerbation. Continue with same management. I will decrease the dose of the steroids to 40 mg every 8 hours, and I will continue to monitor. She seems to be feeling better. Continue breathing treatment, oxygen supplementation, and antibiotics. 2. Type 2 diabetes with hyperglycemia. The increase of her glucose level is likely due to the steroids. I will continue to monitor. I have placed this patient back on her home medications. 3. Hyperlipidemia. Continue with pravastatin. 4. Hypertension. Continue with same regimen. She seems to be stable. 5. Gastroesophageal reflux disease. Continue proton pump inhibitors. 6. Anxiety. Continue with Xanax as needed. cc: Mark Noel MD
[2019-04-01] MEDS: LEVAQUIN 500 MG in NS 100 ML IV SCH (16:10)
[2019-04-01] MEDS: ZOFRAN IV PRN (16:11)
[2019-04-02] MEDS: HUMALOG SUBQ SCH ×4 (00:36→16:48)
[2019-04-02] MEDS: TYLENOL PO PRN ×2 (03:12→10:22)
[2019-04-02] MEDS: DUONEB (A & A) INH SCH ×6 (04:10→23:30)
[2019-04-02] MEDS: SOLU-MEDROL IV SCH ×2 (06:02→09:22)
[2019-04-02] MEDS: ZOFRAN IV PRN (06:34)
[2019-04-02 07:50] LABS: AGAP 15; BUN 19 mg/dL (8-22); CHLORIDE 99 mmol/L (98-107); COSMO 282; CREATININE 0.7 mg/dL (0.5-0.9); ESTIMATED GFR > 60; GLUCOSE 204 mg/dL (70-104); POTASSIUM 4.1 mmol/L (3.5-5.1); SODIUM 137 mmol/L (136-145); TCO2 23 mmol/L (25-35)
[2019-04-02] MEDS: BREO ELLIPTA 200/25 MCG INH INH SCH (07:50)
[2019-04-02] MEDS: PRAVACHOL PO SCH (09:21)
[2019-04-02] MEDS: SINGULAIR PO SCH (09:21)
[2019-04-02] MEDS: GLUCOTROL XL PO SCH (09:21)
[2019-04-02] MEDS: PRILOSEC PO SCH (09:21)
[2019-04-02] MEDS: MUCINEX PO SCH (09:21)
[2019-04-02] MEDS: COZAAR PO SCH (09:21)
[2019-04-02] MEDS: MAXZIDE-25 PO SCH (09:21)
[2019-04-02] MEDS: NON-FORMULARY MED (Empagliflozin [Jardiance] 10 MG) PO SCH (09:40)
[2019-04-02] MEDS: LEVAQUIN 500 MG in NS 100 ML IV SCH (13:37)
--- NOTE | 2019-04-02 13:59 | PROGRESS NOTE ---
DATE: 04/02/2019 SUBJECTIVE: The patient seems to be feeling better right now. She is still having end-expiratory wheezing and feeling short of breath but compared with admission, she seems to be better. I have decreased the dose of the steroids from 40 q.8 hours to 40 q.12 and hopefully tomorrow will decrease it to once a day. I believe this patient can be discharged in the next 48 hours. OBJECTIVE: Vital Signs: Temperature 98 degrees, pulse 80, respiratory rate 18, blood pressure 130/75, oxygen saturation 100% on 2 L of nasal cannula. HEENT: Head normocephalic, no trauma. PERRLA. Neck: Supple. No JVD. No masses. Central trachea. Chest: Decreased breath sounds globally with prolonged expiratory phase and expiratory wheezing. Abdomen: Soft, nontender, nondistended. No hepatosplenomegaly. Extremities: No edema, no clubbing, no cyanosis. Neurological: The patient is awake, alert. She is oriented x3. No focal deficits. LABORATORY DATA: Sodium 137, potassium 4.1, chloride 99, bicarbonate 23, BUN 19, creatinine 0.7, glucose 204, calcium 10. ASSESSMENT AND PLAN: 1. Asthma exacerbation overlapped with chronic obstructive pulmonary disease exacerbation. Continue with the same management. I have decreased the dose of the steroids to 40 mg q.12 hours. I will continue to monitor. I believe tomorrow I want to be able to decrease it even more and discharge this patient in 48 hours. Continue with the same treatment otherwise. 2. Type 2 diabetes with hyperglycemia. This is getting better since I have decreased the dose of the steroids. She seems to be stable. Continue with same treatment. 3. Hyperlipidemia. Continue with pravastatin. 4. Hypertension. Continue with the same regimen. She seems to be stable. 5. Gastroesophageal reflux disease. Continue with proton pump inhibitors. 6. Anxiety. Continue with Xanax as needed. cc: Mark Noel MD
[2019-04-03] MEDS: HUMALOG SUBQ SCH ×5 (02:28→20:30)
[2019-04-03] MEDS: MUCINEX PO SCH ×3 (02:41→20:25)
[2019-04-03] MEDS: SOLU-MEDROL IV SCH ×3 (02:41→17:59)
[2019-04-03] MEDS: DUONEB (A & A) INH SCH ×6 (03:36→22:57)
[2019-04-03] MEDS: TYLENOL PO PRN (06:05)
[2019-04-03] MEDS: ZOFRAN IV PRN (06:18)
[2019-04-03] MEDS: BREO ELLIPTA 200/25 MCG INH INH SCH (07:55)
[2019-04-03 08:17] LABS: BASO# 0.01 X1000 (0.0-0.2); BASO% 0.1 % (0.0-0.8); EOS# 0.03 X1000 (0.0-0.7); EOS% 0.3 % (0.0-10.0); HEMATOCRIT 43.4 % (37.0-47.0); HEMOGLOBIN 14.2 g/dL (12.0-16.0); IMM GRAN# 0.06 X1000 (0.0-0.04); IMM GRAN% 0.6 % (0.0-0.5); LYMPH# 2.38 X1000 (1.2-3.4); LYMPH% 25.6 % (20.5-51.1); MCH 31.4 PG (27-31); MCHC 32.7 g/dL (33-37); MONO# 0.48 X1000 (0.11-0.59); MONO% 5.2 % (1.7-9.3); MPV 9.6 FL (7.4-10.4); NEUT# 6.35 X1000 (1.4-6.5); NEUT% 68.2 % (42.2-75.2); PLT 246 X1000 (130-400); RBC 4.52 XMIL (4.2-5.4); RDW 13.4 % (11.5-14.5); WBC 9.31 X1000 (4.8-10.8)
[2019-04-03 08:39] LABS: AGAP 16; BUN 17 mg/dL (8-22); CALCIUM 9.3 mg/dL (8.8-10.2); CHLORIDE 95 mmol/L (98-107); COSMO 273; CREATININE 0.7 mg/dL (0.5-0.9); ESTIMATED GFR > 60; GLUCOSE 182 mg/dL (70-104); POTASSIUM 3.8 mmol/L (3.5-5.1); SODIUM 133 mmol/L (136-145); TCO2 22 mmol/L (25-35)
[2019-04-03] MEDS: COZAAR PO SCH (09:40)
[2019-04-03] MEDS: PRILOSEC PO SCH (09:41)
[2019-04-03] MEDS: MAXZIDE-25 PO SCH (09:41)
[2019-04-03] MEDS: PRAVACHOL PO SCH (09:41)
[2019-04-03] MEDS: NON-FORMULARY MED (Empagliflozin [Jardiance] 10 MG) PO SCH (09:41)
[2019-04-03] MEDS: GLUCOTROL XL PO SCH (09:41)
[2019-04-03] MEDS: SINGULAIR PO SCH (09:41)
[2019-04-03] MEDS: LEVAQUIN 500 MG in NS 100 ML IV SCH (14:43)
--- NOTE | 2019-04-03 19:26 | PROGRESS NOTE ---
DATE: 04/03/2019 SUBJECTIVE: The patient is feeling better today. She is still having some shortness of breath and end-expiratory wheezing. I will decrease the dose of the steroids to 20 IV q.12 hours, and hopefully tomorrow she can be started on p.o. treatment. Likely she can be discharged tomorrow if the patient is feeling better. She is still coughing up some phlegm, but she is feeling better. OBJECTIVE: Vital Signs: Temperature 99.1 degrees, pulse 85, respiratory rate 16, blood pressure 122/79, oxygen saturation 95% on 2 L of nasal cannula. HEENT: Head normocephalic. No trauma. PERRLA. Neck: Supple. No JVD. No masses. Central trachea. Chest: Decreased breath sounds globally with prolonged expiratory phase and expiratory wheezing. Abdomen: Soft, nontender, nondistended. No hepatosplenomegaly. Extremities: No edema, no clubbing, no cyanosis. Neurological: The patient is awake and alert. She is oriented x3. No focal deficits. LABORATORY: WBC 9.3, hemoglobin 14.2, hematocrit 43.4, platelets 246,000. Sodium 133, potassium 3.8, chloride 95, bicarbonate 22, BUN 17, creatinine 0.7, glucose 182, calcium 9.3. ASSESSMENT AND PLAN: 1. Asthma exacerbation overlapped with chronic obstructive pulmonary disease exacerbation. She has been hospitalized multiple times for the same issue, and actually she has been evaluated before by Dr. Cline. We will continue with the same management. I have decreased the dose of the steroids to 20 mg q.12 hours. Hopefully, tomorrow we can stop the intravenous treatment and put her on p.o. steroids. If tomorrow this patient is feeling good, likely this patient can go home. 2. Type 2 diabetes with hyperglycemia. This is getting better since I have decreased the dose of the steroids. She seems to be stable. Continue with her home medications. 3. Hyperlipidemia. Continue with pravastatin. 4. Hypertension. Continue with same regimen. She seems to be stable. 5. Gastroesophageal reflux disease. Continue with proton pump inhibitors. 6. Anxiety. Continue with Xanax as needed. Overall, this patient is doing much better. I do believe we can stop the intravenous steroids tomorrow and start this patient on p.o. treatment, and probably this patient can be discharged tomorrow or the day after if she is stable. I will also ask for home oxygen evaluation for tomorrow morning to see if she needs oxygen to go home with. cc: Mark Noel MD
[2019-04-04] MEDS: DUONEB (A & A) INH SCH ×3 (03:38→11:55)
[2019-04-04] MEDS: SOLU-MEDROL IV SCH (06:00)
[2019-04-04] MEDS: TYLENOL PO PRN (06:01)
[2019-04-04 07:33] VITALS: BP 134/87
[2019-04-04] MEDS: BREO ELLIPTA 200/25 MCG INH INH SCH (08:38)
[2019-04-04] MEDS: MUCINEX PO SCH (09:14)
[2019-04-04] MEDS: MAXZIDE-25 PO SCH (09:14)
[2019-04-04] MEDS: COZAAR PO SCH (09:14)
[2019-04-04] MEDS: GLUCOTROL XL PO SCH (09:14)
[2019-04-04] MEDS: PRILOSEC PO SCH (09:14)
[2019-04-04] MEDS: PRAVACHOL PO SCH (09:14)
[2019-04-04] MEDS: SINGULAIR PO SCH (09:15)
[2019-04-04 09:16] LABS: AGAP 15; BUN 18 mg/dL (8-22); CALCIUM 9.6 mg/dL (8.8-10.2); CHLORIDE 92 mmol/L (98-107); COSMO 273; CREATININE 0.8 mg/dL (0.5-0.9); ESTIMATED GFR > 60; GLUCOSE 222 mg/dL (70-104); POTASSIUM 3.9 mmol/L (3.5-5.1); SODIUM 132 mmol/L (136-145); TCO2 25 mmol/L (25-35)
[2019-04-04] MEDS ORDERED: NON-FORMULARY MED (Empagliflozin [Jardiance] 0 MG) PO SCH (11:00)
[2019-04-04] MEDS: NON-FORMULARY MED (Empagliflozin [Jardiance] 10 MG) PO SCH (11:13)
[2019-04-04] MEDS: HUMALOG SUBQ SCH (12:47)
--- NOTE | 2019-04-05 18:26 | DISCHARGE SUMMARY ---
ADMISSION DATE: 03/31/2019 DISCHARGE DATE: 04/04/2019 CONSULTATIONS: None. INVASIVE PROCEDURES: None. IMAGING STUDIES: Chest x-ray did show likely emphysema no pneumonia. A repeat chest x-ray the day after showed no acute disease. ADMISSION DIAGNOSIS: 1. Asthma exacerbation with probable chronic obstructive pulmonary disease. 2. Type 2 diabetes mellitus with hyperglycemia. 3. Dyslipidemia. DIAGNOSIS AT THE TIME OF DISCHARGE: 1. Asthma with chronic obstructive pulmonary disease overlap syndrome in acute exacerbation. 2. Diabetes mellitus type 2 with hyperglycemia. 3. Dyslipidemia. 4. Hypertension. 5. Gastroesophageal reflux disease. DISCHARGE MEDICATIONS: 1. Losartan 100 mg p.o. daily. 2. Pravastatin 10 mg p.o. daily. 3. Montelukast 10 mg p.o. at bedtime p.r.n. 4. Jardiance 10 mg p.o. daily. 5. Atrovent nebs p.r.n. 6. Breo inhaler daily. 7. Triamterene with hydrochlorothiazide 1 tablet p.o. daily. 8. Omeprazole 40 mg p.o. daily. 9. Glipizide 5 mg p.o. daily. 10. Prednisone 20 mg p.o. daily. 11. Levofloxacin 500 mg p.o. daily. PRESENTING COMPLAINT: Shortness of breath, wheezing and cough. HISTORY OF PRESENTING COMPLAINT: Ms. Fonseca 58-year-old female who is known to have COPD overlap with asthma syndrome, multiple admissions in the past came to the emergency department because of shortness of breath. She was found to be wheezing and in an acute exacerbation. A chest x-ray revealed emphysema. She was subsequently admitted for further medical care. HOSPITAL COURSE: Ms Fonseca was admitted to the medical floor was started on nebulization, steroid, antibiotics. Physical therapy was consulted. She did improve remarkably during the hospital coarse, bronchospasm resolved. Ms. Fonseca is also known to be diabetic. Her glucose levels were slightly elevated partly because of the steroid use. During the hospital course glucose was controlled with insulin regimen and she has been started back on her home medications and has been advised to follow up with her primary care doctor. Ms. Fonseca was also started back on her home antihypertensive medications including losartan and Maxzide which is a triamterene with hydrochlorothiazide combo. Blood pressures fairly controlled during the hospital course. At discharge blood pressure was 134/87. This morning Ms. Fonseca refers to be doing a lot better. We think she is clinically improving and she is okay for discharge. She is going to follow up with Dr. Cordoba, according to her she also has an appointment with a cruise director at [facility] and we have advised that she maintains the appointment and follows up accordingly. All the discharge instructions have been discussed with Ms. Fonseca. She voiced understanding. TIME SPENT: 35 minutes. cc: Steve Cervantes MD
== END 2019-04-04 13:36 | disposition home or self-care (01) | DRG 191 ==
LOC: ED 08:11 → SUATTDRO 12:20 → EDIPHOLD 12:20 → 3N 14:28
PROVIDERS: ATTEND Internal Medicine